=== PATIENT | female | born 1975 | race Two or more races ===

== ENCOUNTER 2020-04-03 10:39 | Outpatient (REF) | payer BC, SELFPAY ==
[2020-04-03 11:36] LABS: MANUAL DIFF FLAG NO
[2020-04-03 11:42] LABS: Basophils Absolute Auto 0.1 X10*3/uL (0.0-0.2); Basophils Percent Auto 0.7 % (0-2); Eosinophils Absolute Auto 0.1 X10*3/uL (0.0-0.4); Eosinophils Percent Auto 1.5 % (0-4); Imm Gran Abs Auto 0.01 X10*3/uL (0.00-0.03); Imm Gran Pct Auto 0.1 % (0.0-0.4); Lymphocytes Absolute Auto 2.5 X10*3/uL (1.2-4.9); Lymphocytes Percent Auto 37.1 % (20-40); Mean Corpuscular HGB Conc 33.3 g/dl (31.0-35.0); Mean Corpuscular Hemoglobin 30.2 pg (27.0-33.0); Mean Corpuscular Volume 90.7 fL (80-98); Mean Platelet Volume 10.3 fL (9.4-12.3); Monocytes Absolute Auto 0.4 X10*3/uL (0.1-1.2); Monocytes Percent Auto 6.5 % (2-11); Neutrophils Absolute Auto 3.7 X10*3/uL (2.0-8.3); Neutrophils Percent Auto 54.1 % (45-73); Platelet Count 359 X10*3/uL (160-400); Red Cell Distribution Width 13.1 % (11.0-16.0); White Blood Count 6.8 X10*3/uL (4.8-10.8)
[2020-04-03 11:56] LABS: Alanine Aminotransferase 43 U/L (0-31); Albumin Level 4.4 g/dL (3.5-5.0); Alkaline Phosphatase 68 U/L (39-117); Anion Gap 15 (12-20); Aspartate Amino Transferase 43 U/L (5-31); Bilirubin Total 0.5 mg/dL (0.0-1.0); Blood Urea Nitrogen 11 mg/dL (9-16); Calcium 9.4 mg/dL (8.4-10.2); Carbon Dioxide 27 mmol/L (22-29); Chloride 103 mmol/L (96-108); Cholesterol 249 mg/dL; Estimated Glomerular Filt Rate > 60; Glucose Fasting 89 mg/dL (60-99); HDL Cholesterol 57 mg/dL; LDL Cholesterol Calculated 150 mg/dl; Potassium 4.9 mmol/l (3.3-5.1); Sodium 140 mmol/L (135-145); Total Protein 7.2 g/dL (6.5-8.0); Triglycerides 213 mg/dL
[2020-04-03 12:44] LABS: Folate 12.1 ng/mL (> or = 4.0); Vitamin B12 365 pg/mL (200-900)
[2020-04-07 11:51] LABS: Vitamin D 25-OH, D2 <4 ng/mL; Vitamin D 25-OH, D3 26 ng/mL; Vitamin D 25-OH, Total 26 ng/mL (30-100)
== END 2020-04-03 10:40 | disposition home or self-care (01) ==
LOC: HO.LAB 10:39
PROVIDERS: PCP Internal Medicine; Visit Provider Internal Medicine
DX: E66.9 Obesity, unspecified (principal); R42 Dizziness and giddiness; E55.9 Vitamin D deficiency, unspecified
CPT/HCPCS: 36415; 80053; 80061; 82306; 82607; 82746; 85025

== ENCOUNTER 2020-06-27 11:43 | Outpatient (REF) | payer BC, SELFPAY | END 2020-06-27 11:44 | disposition home or self-care (01) | LOC: HO.LAB 11:43 | PROVIDERS: Visit Provider Internal Medicine | DX: Z20.822 Contact with and (suspected) exposure to COVID-19 (principal) | CPT/HCPCS: 36415; C9803; U0003 ==

== ENCOUNTER 2021-05-12 10:24 | Emergency (ER) | payer BC, SELFPAY ==
--- NOTE | ~2021-05-12 | XR_ITS ---
EXAMINATION: XR KNEE, LEFT CLINICAL INFORMATION: Pain and swelling left knee. COMPARISON: None TECHNIQUE: Four views of the left knee. FINDINGS: There is a moderate suprapatellar effusion. Hoffa's fat pad appears normal. There is no bony abnormality. No visible fracture or dislocation or destructive process. No erosive change or chondrocalcinosis. No periostitis. XR/XR knee LT 4V IMPRESSION: Moderate suprapatellar effusion. No fracture, destructive process, or joint narrowing.
[2021-05-12 10:58] VITALS: BP 121/88; PULSE 100; RESP 16; TEMP 36.6; O2SAT 99; BMI 34.9
--- NOTE | 2021-05-12 11:53 | ED_ITS ---
HPI - Extremity Problem General Chief complaint: Extremity Problem Stated complaint: lt knee pain Time Seen by Provider: 05/12/21 11:44 Source: patient Mode of arrival: ambulatory Limitations: no limitations History of Present Illness HPI Narrative: 46-year-old female who has a past medical history of fibromyalgia, obesity, migraine headaches, and hyperlipidemia who is currently on a pain contract prescribed 5 mg of oxycodone presenting to the ED with complaints of atraumatic left knee pain/swelling over the past 5 days worse today. Reports that the pain is radiating proximal into her left hip. Denies any fevers, chills, dizziness, headaches, neck pain/stiffness, back pain, chest pain or shortness of breath, dyspnea on exertion, orthopnea, palpitations, lower extremity edema or calf tenderness, recent falls or trauma, recent travel, recent immobilization, history of DVT or PE, recent travel, history gout, recent illness, history of PVD, history of hypercoagulation disorder or recent surgery or procedure any other symptoms complaints or concerns at this time. MD Complaint: extremity pain and extremity swelling Onset (ago): day(s) (5) Pain Consistency: constant Location: left and knee Quality: aching Radiation: proximal Relieving factors: nothing Exacerbating factors: range of motion, weight bearing, walking and palpation Associated symptoms: denies other symptoms Context: other (History of fibromyalgia) Related Data Home Medications Medication Instructions Recorded Confirmed duloxetine 30 mg capsule,delayed mg PO DAILY 03/27/20 04/07/21 release fentanyl 25 mcg/hr transdermal patch TRANSDERMAL 03/27/20 04/07/21 patch oxycodone-acetaminophen 5 mg-325 1 tab PO QID PRN 03/27/20 04/07/21 mg tablet pregabalin 150 mg capsule mg PO 03/27/20 04/07/21 ropinirole 0.5 mg tablet 0.5 mg PO BEDTIME 03/27/20 04/07/21 amitriptyline 10 mg tablet 20 mg PO DAILY tab 04/07/21 04/07/21 clonazepam 1 mg tablet 1 mg PO BID PRN 04/07/21 04/07/21 topiramate 50 mg tablet 50 mg PO DAILY tab 04/07/21 04/07/21 Previous Rx's Medication Instructions Recorded cholecalciferol (vitamin D3) 25 25 mcg PO DAILY #90 tab 07/05/20 mcg (1,000 unit) tablet (Vitamin D3) cajniqobnv-wxsfdhoovzzhl-rkvzqkbi 1 cap PO Q8H PRN 30 Days #90 cap 11/03/20 50 mg-300 mg-40 mg capsule acetaminophen 500 mg capsule 1,000 mg PO QID PRN #14 cap 05/12/21 ibuprofen 800 mg tablet 800 mg PO Q8H PRN #14 tab 05/12/21 prednisone 20 mg tablet 40 mg PO DAILY 5 Days #10 tab 05/12/21 Allergies Allergy/AdvReac Type Severity Reaction Status Date / Time apple [Apple] Allergy Severe ANGIOEDEMA Verified 04/07/21 14:19 nut - unspecified [nut] Allergy Severe SWELLING Verified 04/07/21 14:19 pollen extracts [POLLEN] Allergy Intermediate ITCHY Verified 04/07/21 14:19 EYES, SNEEZING sertraline Allergy Intermediate anxiety Verified 04/07/21 14:19 suvorexant [Belsomra] Allergy Intermediate hallucinati Verified 04/07/21 14:19 ons Review of Systems Review of Systems: Constitutional : No Weight loss, No Fever, No Chills, No Night Sweats, No Fatigue, No Malaise ENT/Mouth : No Hearing loss, No Ear Pain, No Nasal Congestion, No Sinus Pain, No Hoarseness, No sore throat, No Rhinorrhea, No Swallowing Difficulty Eyes: No Eye Pain, No Swelling, No Redness, No Foreign Body, No Discharge, No Vision Changes Cardiovascular : No Chest Pain, No SOB, No Dyspnea on Exertion, No Orthopnea, No Edema, No Palpitations Respiratory : No Cough, No Sputum, No Wheezing, No Smoke Exposure, No Dyspnea Gastrointestinal : No Nausea, No Vomiting, No Diarrhea, No Constipation, No abdominal Pain, No Hematochezia, No Melena Genitourinary : no irregular bleeding, No Dysuria, No Urinary Frequency, No Hematuria, No Urinary Incontinence, No Urgency, No Flank Pain, No Urinary Flow Changes, No Hesitancy Musculoskeletal : + joint pain/swelling, No Myalgias Skin : No Skin Lesions, No rash Neuro : No Weakness, No Numbness, No Paresthesias, No Loss of Consciousness, No Dizziness, No Headache Psych : No Anxiety/Panic, No Depression, No SI/HI/AH/VH, No Social Issues, Heme/Lymph: No Bruising, No Bleeding,No Lymphadenopathy Endocrine : No Polyuria, No Polydipsia, No Temperature Intolerance Yes all other systems are reviewed and are negative [facility] Past Medical History Attestation statement: The following information was validated with the patient. Medical History Bilateral sacroiliitis Dizziness Fibromyalgia Hypovitaminosis D Migraines Mixed hyperlipidemia Obesity Palpitations Tachycardia Transaminitis Surgical History History of cholecystectomy History of deviated nasal septum History of hysterectomy History of removal of ovarian cyst History of tonsillectomy History of tubal ligation Family History Family History Father Anxiety Depression Mother Breast cancer Maternal Grandmother Myocardial infarction Maternal Aunt Breast cancer Family/Other FH: mental illness Social History Social History Housing: House Alcohol intake: never Patient Tobacco Use Status: Former Tobacco user Tobacco use type: Cigarette Second Hand Smoke Exposure: Yes Advance Directives: No Advance Directives Information Provided: No service: No Current occupational status: employed 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 Blood pressure normal. Heart rate normal. Respiration rate normal. Temperature normal. Oxygen saturation normal. Appearance: Alert. Oriented X3. No acute distress. Head: Normal external exam. Normocephalic. Atraumatic. Eyes: PERRLA. EOMI. Conjunctiva and sclera normal. Eyelids normal. ENT: Pharynx normal. Uvula midline. Moist mucous membranes. Neck: Normal inspection. Neck supple. FROM. No adenopathy. No meningeal signs. No neck mass noted. CVS: Normal heart rate and rhythm. Heart sound normal. Pulses normal throughout. No murmurs/rales/gallops. Respiratory: No respiratory distress. Painless inspiration. Back: Full range of motion noted. No rashes/lesion/induration/fluctuance or signs of infection noted. Skin: Skin warm and dry. Normal skin color. Normal skin turgor. No jenna hes/lesions/lacerations noted. Extremities: Patient with left knee pain at the suprapatellar/medial aspect with mild soft tissue swelling no induration/fluctuance or signs of infection or surrounding erythema noted. No obvious ligamentous or tendon injury noted. Patient has full range of motion of the left knee/ankle and hip joint. Patient has a normal steady gait. Otherwise all other Extremities exhibit normal range of motion and nontender. No lower extremity edema is noted. Neuro: Oriented X 3. No motor deficit. No sensory deficit. Reflexes normal. Normal steady gait. No focal neuro deficits noted. Vascular: + radial pulses/+ 2 distal pedal pulses/+2 dorsalis pedis b/l. Normal cap refill. No cyanosis noted to upper extremity nails and lower extremity toes nails. Course Course Course Narrative: 46-year-old female who has a past medical history of fibromyalgia, obesity, migraine headaches, and hyperlipidemia who is currently on a pain contract prescribed 5 mg of oxycodone presenting to the ED with complaints of atraumatic left knee pain/swelling over the past 5 days worse today. Reports that the pain is radiating proximal into her left hip. Denies any fevers, chills, dizziness, headaches, neck pain/stiffness, back pain, chest pain or shortness of breath, dyspnea on exertion, orthopnea, palpitations, lower extremity edema or calf tenderness, recent falls or trauma, recent travel, recent immobilization, history of DVT or PE, recent travel, history gout, recent illness, history of PVD, history of hypercoagulation disorder or recent surgery or procedure any other symptoms complaints or concerns at this time. X-ray reported moderate suprapatellar effusion otherwise no other acute processes. Will instruct patient to elevate/ice and will provide Motrin and steroids and instructions to continue taking her 5 mg oxycodone as previously prescribed. And to follow-up with orthopedic and to return if any new or worsening symptoms to follow up with primary care provider. Patient understands agrees with this plan. MDM - Extremity (Nontraumatic) Medical Records Attestation: I reviewed the patient's medical records. Imaging Data Left knee x-ray: Attestation: I personally reviewed and interpreted this imaging study as follows: Radiologist's impression: FINDINGS: There is a moderate suprapatellar effusion. Hoffa's fat pad appears normal. There is no bony abnormality. No visible fracture or dislocation or destructive process. No erosive change or chondrocalcinosis. No periostitis.? XR/XR knee LT 4V IMPRESSION: Moderate suprapatellar effusion. No fracture, destructive process, or joint narrowing. Discharge Plan Discharge Clinical Impression: Suprapatellar effusion of knee Patient Disposition: Home, Self-Care Instructions: Swollen Knee Joint (ED) Prescriptions: New ibuprofen 800 mg tablet 800 mg PO Q8H PRN (Reason: pain) Qty: 14 RF: 0 prednisone 20 mg tablet 40 mg PO DAILY 5 Days Qty: 10 RF: 0 acetaminophen 500 mg capsule 1,000 mg PO QID PRN (Reason: fever or pain) Qty: 14 RF: 0 No Action cholecalciferol (vitamin D3) [Vitamin D3] 25 mcg (1,000 unit) tablet 25 mcg PO DAILY Qty: 90 RF: 6 eylrblyhzr-cuuvojgfdnyfz-dyzv 50-300-40 mg capsule 1 cap PO Q8H PRN (Reason: pain) 30 Days Qty: 90 RF: 0 pregabalin 150 mg capsule PO RF: 0 fentanyl 25 mcg/hr patch 72 hour transdermal RF: 0 oxycodone-acetaminophen 5-325 mg tablet 1 tab PO QID PRN (Reason: pain) RF: 0 ropinirole 0.5 mg tablet 0.5 mg PO BEDTIME RF: 0 duloxetine 30 mg capsule,delayed release(DR/EC) PO DAILY RF: 0 clonazepam 1 mg tablet 1 mg PO BID PRNRF: 0 topiramate 50 mg tablet 50 mg PO DAILY RF: 0 amitriptyline 10 mg tablet 20 mg PO DAILY RF: 0 Referrals: Miguel Angel Haddad MD [Physician] - 2 days (Call to make a follow-up appointment within the next 2 weeks) Rocio Alvarado MD [Primary Care Provider] - 2 days Print Language: Ivorian
[2021-05-12] MEDS: predniSONE 20 MG TABLET 40 MG PO (12:05)
[2021-05-12] MEDS: Ibuprofen 800 MG TABLET PO (12:05)
== END 2021-05-12 12:41 | disposition home or self-care (01) ==
PROVIDERS: Emergency Provider Emergency Medicine; PCP Internal Medicine
DX: M25.462 Effusion, left knee (principal); M25.562 Pain in left knee; M79.7 Fibromyalgia
CPT/HCPCS: 73564; 99283

== ENCOUNTER 2021-06-13 08:00 | Emergency (ER) | payer BC, SELFPAY ==
--- NOTE | ~2021-06-13 | XR_ITS ---
EXAMINATION: XR CHEST CLINICAL INFORMATION: Cough, COVID positive. COMPARISON: 10/10/2017 chest radiographs. TECHNIQUE: Frontal view of the chest was obtained. FINDINGS: Low lung volumes and evaluation. The lungs are clear. The heart and mediastinal structures are unremarkable. Moderate thoracolumbar sigmoid scoliosis and multilevel degenerative changes are again noted. XR/XR chest 1V IMPRESSION: No acute cardiopulmonary process.
[2021-06-13 08:41] VITALS: BP 140/67; PULSE 120; RESP 18; TEMP 36.8; O2SAT 98; BMI 33.3
[2021-06-13 09:10] LABS: COVID-19 Test Positive (Negative); IDNOW Serial# 9DD0AD1C
--- NOTE | 2021-06-13 10:40 | ECG_ITS ---
Test Reason : cp Blood Pressure : / mmHG Vent. Rate : 117 BPM Atrial Rate : 117 BPM P-R Int : 136 ms QRS Dur : 092 ms QT Int : 334 ms P-R-T Axes : 012 -11 013 degrees QTc Int : 465 ms Sinus tachycardia Minimal voltage criteria for LVH, may be normal variant ( R in aVL ) Borderline ECG When compared with ECG of 10-OCT-2017 10:37, No significant change was found Referred By: Mega Mcwilliams Electronically Signed By:Lio Horton
[2021-06-13 11:56] VITALS: PULSE 110; RESP 16; O2SAT 100
[2021-06-13 11:57] LABS: MANUAL DIFF FLAG NO
[2021-06-13 11:59] LABS: Basophils Percent Auto 0.4 % (0-2); Eosinophils Absolute Auto 0.1 X10*3/uL (0.0-0.4); Eosinophils Percent Auto 1.4 % (0-4); Hematocrit 42.1 % (37.0-47.0); Imm Gran Abs Auto 0.03 X10*3/uL (0.00-0.03); Imm Gran Pct Auto 0.3 % (0.0-0.4); Lymphocytes Absolute Auto 2.1 X10*3/uL (1.2-4.9); Lymphocytes Percent Auto 20.8 % (20-40); Mean Corpuscular HGB Conc 33.3 g/dl (31.0-35.0); Mean Corpuscular Hemoglobin 30.8 pg (27.0-33.0); Mean Corpuscular Volume 92.5 fL (80.0-98.0); Mean Platelet Volume 9.4 fL (9.4-12.3); Monocytes Percent Auto 10.2 % (2-11); Neutrophils Absolute Auto 6.6 x10*3/uL (2.0-8.3); Neutrophils Percent Auto 66.9 % (45-73); Platelet Count 333 X10*3/uL (160-400); Red Blood Count 4.55 X10*6/uL (4.20-5.50); Red Cell Distribution Width 13.2 % (11.0-16.0); White Blood Count 9.9 X10*3/uL (4.8-10.8)
[2021-06-13 12:00] VITALS: O2SAT 100
[2021-06-13 12:06] LABS: Prothrombin Time 11.5 SEC (9.9-13.0)
[2021-06-13 12:08] LABS: D Dimer High Sensitivity 230 NG/ML; Partial Thromboplastin Time 37.5 SEC (24.1-38.0)
[2021-06-13 12:10] LABS: Anion Gap 13 (12-20); Blood Urea Nitrogen 10 mg/dL (9-16); Calcium 9.5 mg/dL (8.4-10.2); Carbon Dioxide 23 mmol/L (22-29); Chloride 107 mmol/L (96-108); Creatinine Clr Calc Pharmacy 98.9; Estimated Glomerular Filt Rate > 60; Glucose Random 95 mg/dL (60-115); Potassium 3.9 mmol/L (3.3-5.1); Sodium 139 mmol/L (135-145)
--- NOTE | 2021-06-13 13:02 | ED_ITS ---
HPI - URI/Sore Throat General Chief Complaint: Upper Respiratory Symptoms Stated Complaint: CHEST THIGHTNESS COVID EXPOSURE Time Seen by Provider: 06/13/21 10:30 History of Present Illness HPI Narrative: Patient complains of mild cough runny nose mild headache and some chest tightness last night but no chest tightness or shortness of breath now She has been vaccinated for COVID and has had very close family exposure to COVID, no recent travel no underlying medical condition no injuries to her leg no pain in her legs or swelling Related Data Home Medications Medication Instructions Recorded Confirmed duloxetine 30 mg capsule,delayed mg PO DAILY 03/27/20 04/07/21 release fentanyl 25 mcg/hr transdermal patch TRANSDERMAL 03/27/20 04/07/21 patch oxycodone-acetaminophen 5 mg-325 1 tab PO QID PRN 03/27/20 04/07/21 mg tablet pregabalin 150 mg capsule mg PO 03/27/20 04/07/21 ropinirole 0.5 mg tablet 0.5 mg PO BEDTIME 03/27/20 04/07/21 amitriptyline 10 mg tablet 20 mg PO DAILY tab 04/07/21 04/07/21 clonazepam 1 mg tablet 1 mg PO BID PRN 04/07/21 04/07/21 topiramate 50 mg tablet 50 mg PO DAILY tab 04/07/21 04/07/21 Previous Rx's Medication Instructions Recorded cholecalciferol (vitamin D3) 25 25 mcg PO DAILY #90 tab 07/05/20 mcg (1,000 unit) tablet (Vitamin D3) yzggnsptyv-mpbezueshuuxz-hzpwqlke 1 cap PO Q8H PRN 30 Days #90 cap 11/03/20 50 mg-300 mg-40 mg capsule acetaminophen 500 mg capsule 1,000 mg PO QID PRN #14 cap 05/12/21 ibuprofen 800 mg tablet 800 mg PO Q8H PRN #14 tab 05/12/21 prednisone 20 mg tablet 40 mg PO DAILY 5 Days #10 tab 05/12/21 Allergies Allergy/AdvReac Type Severity Reaction Status Date / Time apple [Apple] Allergy Severe ANGIOEDEMA Verified 06/13/21 08:41 nut - unspecified [nut] Allergy Severe SWELLING Verified 06/13/21 08:41 pollen extracts [POLLEN] Allergy Intermediate ITCHY Verified 06/13/21 08:41 EYES, SNEEZING sertraline Allergy Intermediate anxiety Verified 06/13/21 08:41 suvorexant [Belsomra] Allergy Intermediate hallucinati Verified 06/13/21 08:41 ons Review of Systems Review of Systems: Positive for cough body aches runny nose and chest t ightness Negatives are no fever no chills no dizziness no weakness no fainting no feeling faint no headache no neck pain no stiff neck no sore throat no chest pain no abdominal pain no nausea vomiting or diarrhea no calf pain no leg swelling Yes all other systems are reviewed and are negative [facility] Past Medical History Source: nursing notes reviewed Medical History Bilateral sacroiliitis Dizziness Fibromyalgia Hypovitaminosis D Migraines Mixed hyperlipidemia Obesity Palpitations Tachycardia Transaminitis Surgical History History of cholecystectomy History of deviated nasal septum History of hysterectomy History of removal of ovarian cyst History of tonsillectomy History of tubal ligation Family History Family History Father Anxiety Depression Mother Breast cancer Maternal Grandmother Myocardial infarction Maternal Aunt Breast cancer Family/Other FH: mental illness Social History Social History Housing: House Alcohol intake: never Patient Tobacco Use Status: Former Tobacco user Tobacco use type: Cigarette Smoked in Last 30 Days: No Second Hand Smoke Exposure: Yes Use of substances other than those prescribed or required for medical reasons: No Advance Directives: No Advance Directives Information Provided: No service: No Current occupational status: employed 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 Physical Exam Vital Signs: Vital Signs: Last Vital Signs Temp 98.2 F 06/13/21 08:41 Pulse 110 H 06/13/21 11:56 Resp 16 06/13/21 11:56 BP 140/67 H 06/13/21 08:41 Pulse Ox 100 06/13/21 12:00 BMI result Body Mass Index 33.3 General appearance is no acute distress comfortable breathing easily speaking full sentences The eyes no redness or swelling The pharynx is clear with no redness swelling or exudate mucous membranes moist Neck is supple Chest clear to auscultation bilateral Heart no murmurs There is no pain with deep breath The abdomen is soft nontender Extremities no calf tenderness or swelling no edema Course Course Course Narrative: Labs were checked with no acute abnormality D-dimer was checked because she was initially tachycardic at 01:20 I recheck that it was 120 and so we checked a D-dimer to rule out pulmonary embolus, the D-dimer came back to 30 which is the upper limit of normal, patient had no other risk factors for blood clot and now was read as a negative Patient had no shortness of breath during her stay in the ER and her pulse went down to 107 with no treatment Chest x-ray was normal EKG showed sinus tachycardia at 01:17, no acute ischemic changes no acute ST changes, QT was normal, intervals were normal Well-appearing patient positive for COVID was discharged with warnings to quarantine and return if worse MDM - URI/Sore Throat Lab Data Result diagrams: 06/13/21 11:53 06/13/21 11:53 Labs: Lab Results 06/13/21 06/13/21 06/13/21 Range/Units 08:45 11:53 11:53 WBC 9.9 (4.8-10.8) X10*3/uL RBC 4.55 (4.20-5.50) X10*6/uL Hgb 14.0 (12.0-16.0) g/dl Hct 42.1 (37.0-47.0) % MCV 92.5 (80.0-98.0) fL MCH 30.8 (27.0-33.0) pg MCHC 33.3 (31.0-35.0) g/dl RDW 13.2 (11.0-16.0) % Plt Count 333 (160-400) X10*3/uL MPV 9.4 (9.4-12.3) fL Immature Gran % (Auto) 0.3 (0.0-0.4) % Neut % (Auto) 66.9 (45-73) % Lymph % (Auto) 20.8 (20-40) % [place] % (Auto) 10.2 (2-11) % Eos % (Auto) 1.4 (0-4) % Baso % (Auto) 0.4 (0-2) % Lymph # (Auto) 2.1 (1.2-4.9) X10*3/uL [place] # (Auto) 1.0 (0.1-1.2) X10*3/uL Eos # (Auto) 0.1 (0.0-0.4) X10*3/uL Baso # (Auto) 0.0 (0.0-0.2) X10*3/uL Abs Immat Gran (auto) 0.03 (0.00-0.03) X10*3/uL Absolute Neuts (auto) 6.6 (2.0-8.3) x10*3/uL Absolute Nucleated RBC 0.000 (0.0-0.012) X10*3/uL Nucleated RBC % (auto) 0.0 (0.0-0.2) /100WBC PT (9.9-13.0) SEC INR (0.9-1.1) APTT (24.1-38.0) SEC D-Dimer High Sensitivty NG/ML Sodium 139 (135-145) mmol/L Potassium 3.9 (3.3-5.1) mmol/L Chloride 107 (96-108) mmol/L Carbon Dioxide 23 (22-29) mmol/L Anion Gap 13 (12-20) BUN 10 (9-16) mg/dL Creatinine 0.70 (0.5-1.4) mg/dL Estim Creat Clear Calc 98.9 Estimated GFR > 60 Random Glucose 95 (60-115) mg/dL Calcium 9.5 (8.4-10.2) mg/dL COVID-19 ([facility]) Positive A (Negative) COVID-19 Clin Com See Note 06/13/21 Range/Units 11:53 WBC (4.8-10.8) X10*3/uL RBC (4.20-5.50) X10*6/uL Hgb (12.0-16.0) g/dl Hct (37.0-47.0) % MCV (80.0-98.0) fL MCH (27.0-33.0) pg MCHC (31.0-35.0) g/dl RDW (11.0-16.0) % Plt Count (160-400) X10*3/uL MPV (9.4-12.3) fL Immature Gran % (Auto) (0.0-0.4) % Neut % (Auto) (45-73) % Lymph % (Auto) (20-40) % [place] % (Auto) (2-11) % Eos % (Auto) (0-4) % Baso % (Auto) (0-2) % Lymph # (Auto) (1.2-4.9) X10*3/uL [place] # (Auto) (0.1-1.2) X10*3/uL Eos # (Auto) (0.0-0.4) X10*3/uL Baso # (Auto) (0.0-0.2) X10*3/uL Abs Immat Gran (auto) (0.00-0.03) X10*3/uL Absolute Neuts (auto) (2.0-8.3) x10*3/uL Absolute Nucleated RBC (0.0-0.012) X10*3/uL Nucleated RBC % (auto) (0.0-0.2) /100WBC PT 11.5 (9.9-13.0) SEC INR 1.0 (0.9-1.1) APTT 37.5 (24.1-38.0) SEC D-Dimer High Sensitivty 230 NG/ML Sodium (135-145) mmol/L Potassium (3.3-5.1) mmol/L Chloride (96-108) mmol/L Carbon Dioxide (22-29) mmol/L Anion Gap (12-20) BUN (9-16) mg/dL Creatinine (0.5-1.4) mg/dL Estim Creat Clear Calc Estimated GFR Random Glucose (60-115) mg/dL Calcium (8.4-10.2) mg/dL COVID-19 ([facility]) (Negative) COVID-19 Clin Com Discharge Plan Discharge Clinical Impression: COVID-19 Patient Disposition: Home, Self-Care Additional Instructions: You tested positive for COVID Our workup today did not show evidence of blood clot or heart problem or any dangerous or serious condition COVID is very contagious so quarantine for 10 days Return to ER any time any worse condition or any concerns Prescriptions: No Action cholecalciferol (vitamin D3) [Vitamin D3] 25 mcg (1,000 unit) tablet 25 mcg PO DAILY Qty: 90 RF: 6 cnqyberlzv-scgiwniqytqcq-bneb 50-300-40 mg capsule 1 cap PO Q8H PRN (Reason: pain) 30 Days Qty: 90 RF: 0 ibuprofen 800 mg tablet 800 mg PO Q8H PRN (Reason: pain) Qty: 14 RF: 0 prednisone 20 mg tablet 40 mg PO DAILY 5 Days Qty: 10 RF: 0 acetaminophen 500 mg capsule 1,000 mg PO QID PRN (Reason: fever or pain) Qty: 14 RF: 0 pregabalin 150 mg capsule PO RF: 0 fentanyl 25 mcg/hr patch 72 hour transdermal RF: 0 oxycodone-acetaminophen 5-325 mg tablet 1 tab PO QID PRN (Reason: pain) RF: 0 ropinirole 0.5 mg tablet 0.5 mg PO BEDTIME RF: 0 duloxetine 30 mg capsule,delayed release(DR/EC) PO DAILY RF: 0 clonazepam 1 mg tablet 1 mg PO BID PRNRF: 0 topiramate 50 mg tablet 50 mg PO DAILY RF: 0 amitriptyline 10 mg tablet 20 mg PO DAILY RF: 0 Stand Alone Forms: Work/School Release Interventions: ED Discharge Assessment Last Done: 06/13/21 13:40 Discharge Date/Time: 06/13/21 13:40
== END 2021-06-13 13:40 | disposition home or self-care (01) ==
PROVIDERS: Physician Assistant Medical; Emergency Provider Emergency Medicine; PCP Internal Medicine
DX: U07.1 COVID-19 (principal); R07.9 Chest pain, unspecified; Z87.891 Personal history of nicotine dependence; Z79.899 Other long term (current) drug therapy
CPT/HCPCS: 36415; 71045; 80048; 85025; 85379; 85610; 85730; 87635; 93005; 99283; 99285

== ENCOUNTER 2021-07-01 13:13 | Outpatient (REF) | payer BC, SELFPAY ==
[2021-07-01 13:38] LABS: COVID-19 Test Negative (Negative)
== END 2021-07-01 13:14 | disposition home or self-care (01) ==
LOC: HO.LAB 13:13
PROVIDERS: Visit Provider Internal Medicine
DX: Z20.822 Contact with and (suspected) exposure to COVID-19 (principal)
CPT/HCPCS: 87635; C9803

== ENCOUNTER → 2021-07-06 13:30 | Outpatient (BNVA) | payer BC, SELFPAY | PROVIDERS: PCP Internal Medicine; Visit Provider Internal Medicine ==

== ENCOUNTER → 2021-07-27 16:00 | Outpatient (BNVA) | payer BC, SELFPAY | PROVIDERS: PCP Internal Medicine; Visit Provider Internal Medicine ==

== ENCOUNTER 2021-08-06 17:56 | Outpatient (REF) | payer BC, SELFPAY ==
--- NOTE | ~2021-08-06 | MR_ITS ---
EXAMINATION: MR LUMBAR SPINE WITHOUT CONTRAST CLINICAL INFORMATION: 46-year-old with complaints of low back pain radiating to both legs. Scoliosis, unspecified. COMPARISON: 12/17/2014 MRI. TECHNIQUE: MRI of the lumbar spine was obtained using routine sequences without contrast. Sagittal T1-weighted images are severely degraded by motion artifact. FINDINGS: Coronal Alignment: There is marked upper lumbar levoscoliosis stable from previous exam. Sagittal Alignment: Prominent lumbar lordotic curvature in the sagittal plane stable in appearance. No spondylolisthesis or retrolisthesis. Lumbosacral Junction: Transitional anatomy with lowest lumbar-like segment labeled as S1, which is partially lumbarized, with a rudimentary S1-S2 intervertebral disc space unchanged in appearance. Vertebral Bodies: Normal height. Disc Spaces and Endplates: [id number] disc space height loss at L5-S1 asymmetric to the left, similar to the previous study with disc desiccation. There is disc desiccation at L4-L5 with slight disc space height loss, progressed from previous exam. Disc desiccation at L3-L4 has progressed without significant disc space height loss since previous study. Ksal-rd-[id number] disc space height loss and disc desiccation at L2-L3 asymmetric to the right, largely unchanged with mild spondylosis. Fyolnppj-ul-zfrzsa disc space height loss asymmetric to the right at L1-L2 with disc desiccation and Schmorl's nodes progressed from previous exam. Progression of discogenic degenerative changes also noted at T12-L1 with disc space height loss and disc desiccation and Schmorl's node formation with mild spondylosis. Spinal Canal: No abnormal developmental findings. Bone Marrow: Type II degenerative marrow signal changes along the endplates at L5-S1 asymmetric to the left have evolved from type I signal changes on the previous exam. There are type II degenerative marrow signal changes along the endplates at L2-L3 minimally progressed. Otherwise, bone marrow signal intensity is within normal limits. Conus Medullaris: Terminates at T12-L1. Morphology and signal is normal. Intradural Nerve Roots: Within normal limits. L5-S1: Broad-based disc bulging asymmetric to the left with left posterolateral disc osteophyte complex, similar to the previous study, with no significant thecal sac compromise. [id number] facet arthropathy is noted without significant canal stenosis. There is mild left-sided neural foraminal stenosis, stable in appearance with disc osteophyte complex contacting the exiting left L5 nerve root, unchanged. L4-L5: Minimal posterolateral disc osteophyte complex asymmetric to the left, slightly more prominent on current study with a small right subarticular disc protrusion stable in appearance without neural impingement. Mild facet arthropathy noted with mild left-sided foraminal narrowing without neural impingement. No canal stenosis. L3-L4: Small left subarticular disc protrusion noted on current study at this level. No significant disc bulging. Mild right-sided facet arthropathy stable in appearance. No canal or neural foraminal stenosis. L2-L3: Tiny right paramedian disc protrusion stable in appearance. Mild facet arthrosis stable in appearance. No canal or neural foraminal stenosis. L1-L2: No significant disc bulge or herniation. Mild facet arthrosis on the right stable in appearance with mild right-sided foraminal narrowing without neural impingement unchanged. No canal stenosis. Paraspinal/Retroperitoneal: The paravertebral soft tissues appear unremarkable. MR/MR lumbar spine wo con IMPRESSION: 1. Marked upper lumbar levoscoliosis, stable in appearance. 2. Multilevel progression of discogenic degenerative changes, as described above without significant spinal canal stenosis. Stable multilevel bilateral facet arthropathy. 3. Posterolateral disc osteophyte complex asymmetric to the left at L5-S1, stable in appearance with mild left-sided neural foraminal stenosis, unchanged. Left-sided disc osteophyte complex and right subarticular disc protrusion at L4-L5 as described above with mild facet arthropathy and mild left-sided neural foraminal narrowing without neural impingement. 4. Small left subarticular disc protrusion at L3-L4 and mild right-sided facet arthropathy, tiny right paramedian disc protrusion at L2-L3 and mild facet arthrosis on the right at L1-L2 with mild right-sided neural foraminal stenosis.
== END 2021-08-06 17:57 | disposition home or self-care (01) ==
LOC: HO.MRI 17:56
PROVIDERS: Visit Provider Internal Medicine
DX: M41.86 Other forms of scoliosis, lumbar region (principal); M47.816 Spondylosis without myelopathy or radiculopathy, lumbar region; M48.061 Spinal stenosis, lumbar region without neurogenic claudication
CPT/HCPCS: 72148

== ENCOUNTER 2021-08-08 10:14 | Outpatient (REF) | payer BC, SELFPAY ==
[2021-08-08 10:22] LABS: MANUAL DIFF FLAG NO
[2021-08-08 10:39] LABS: Basophils Percent Auto 0.6 % (0-2); Eosinophils Absolute Auto 0.1 X10*3/uL (0.0-0.4); Eosinophils Percent Auto 1.6 % (0-4); Hematocrit 39.3 % (37.0-47.0); Hemoglobin 12.9 g/dl (12.0-16.0); Imm Gran Abs Auto 0.01 X10*3/uL (0.00-0.03); Imm Gran Pct Auto 0.1 % (0.0-0.4); Lymphocytes Absolute Auto 2.3 X10*3/uL (1.2-4.9); Lymphocytes Percent Auto 33.9 % (20-40); Mean Corpuscular HGB Conc 32.8 g/dl (31.0-35.0); Mean Corpuscular Hemoglobin 30.4 pg (27.0-33.0); Mean Corpuscular Volume 92.7 fL (80.0-98.0); Mean Platelet Volume 9.6 fL (9.4-12.3); Monocytes Absolute Auto 0.4 X10*3/uL (0.1-1.2); Monocytes Percent Auto 5.9 % (2-11); Neutrophils Absolute Auto 3.9 x10*3/uL (2.0-8.3); Neutrophils Percent Auto 57.9 % (45-73); Platelet Count 322 X10*3/uL (160-400); Red Blood Count 4.24 X10*6/uL (4.20-5.50); Red Cell Distribution Width 13.2 % (11.0-16.0); White Blood Count 6.8 X10*3/uL (4.8-10.8)
[2021-08-08 11:56] LABS: Alanine Aminotransferase 27 U/L (0-31); Albumin Level 4.3 g/dL (3.5-5.0); Alkaline Phosphatase 70 U/L (39-117); Anion Gap 13 (12-20); Aspartate Amino Transferase 26 U/L (5-31); Bilirubin Total 0.6 mg/dL (0.0-1.0); Blood Urea Nitrogen 9 mg/dL (9-16); Calcium 9.7 mg/dL (8.4-10.2); Carbon Dioxide 25 mmol/L (22-29); Chloride 107 mmol/L (96-108); Cholesterol 270 mg/dL; Estimated Glomerular Filt Rate > 60; Glucose Fasting 93 mg/dL (60-99); HDL Cholesterol 56 mg/dL; LDL Cholesterol Calculated 174 mg/dl; Potassium 4.3 mmol/L (3.3-5.1); Sodium 141 mmol/L (135-145); Total Protein 7.1 g/dL (6.5-8.0); Triglycerides 203 mg/dL
[2021-08-12 12:06] LABS: Vitamin D 25-OH, D2 <4 ng/mL; Vitamin D 25-OH, D3 16 ng/mL; Vitamin D 25-OH, Total 16 ng/mL (30-100)
== END 2021-08-08 10:15 | disposition home or self-care (01) ==
LOC: HO.LAB 10:14
PROVIDERS: PCP Internal Medicine; Visit Provider Internal Medicine
DX: E78.5 Hyperlipidemia, unspecified (principal); E55.9 Vitamin D deficiency, unspecified; E78.2 Mixed hyperlipidemia; R53.83 Other fatigue
CPT/HCPCS: 36415; 80053; 80061; 82306; 85025

== ENCOUNTER → 2021-08-14 13:15 | Outpatient (REF) | payer BC, SELFPAY | LOC: HO.CARD 13:15 | PROVIDERS: Visit Provider Physician Assistant | DX: Z13.89 Encounter for screening for other disorder (principal) | CPT/HCPCS: 93226 ==

== ENCOUNTER → 2021-08-19 09:17 | Outpatient (REF) | payer BC, SELFPAY ==
--- NOTE | 2021-08-19 09:22 | ECG_ITS ---
Hook-up date: 2021-08-19 09:31:00 Duration: 47:59:00 Test Indications: palpitations Medications: [id number] QRS complexes 12 Ventricular ectopics which represent <1 % of total QRS comp. 30425 Supraventricular ectopics which represent 13 % of total QRS comp. * Paced QRS complexs which represent % of total QRS comp. VENTRICULAR ECTOPY 12 Isolated 0 Bigeminal Cycles 0 Couplets 0 Runs 0 Beats in Runs * Beats LONGEST at * BPM at :: -- * Beats FASTEST at * BPM at :: -- SUPRAVENTRICULAR ECTOPY 6 Isolated 7 Couplets 50 Runs 10746 Beats in Runs 9546 Beats LONGEST at 84 BPM at 23:53:15 2021-08-19 8 Beats FASTEST at 87 BPM at 07:54:18 2021-08-21 HEART RATES 62 MIN at 05:28:45 2021-08-20 97 AVG 169 MAX at 09:37:25 2021-08-20 LONGEST RR 1.1840 secs at 03:46:50 2021-08-21 S-T LEVELS Channel 1 - 128 mm at 09:31:00 2021-08-19 - 128 mm at 09:31:00 2021-08-19 Channel 2 - 128 mm at 09:31:00 2021-08-19 - 128 mm at 09:31:00 2021-08-19 Channel 3 - 128 mm at 02:85:01 -- - 128 mm at 02:85:01 Basic rhythm Normal sinus rhythm No long pause or profound bradycardia Frequent Sinus tachycardia , 46% of time HR > 100 bpm Frequent Unusual P axis, possible ectopic atrial rhythm Rare ectopics Patient did not report any symptoms in the diary Referred By: Guilherme Garcia Overread By: GREG VALENZUELA MD
== END ==
LOC: HO.CARD 09:17
PROVIDERS: PCP Physician Assistant; Visit Provider Physician Assistant
DX: R00.0 Tachycardia, unspecified (principal); R00.2 Palpitations
CPT/HCPCS: 93225; 93226

== ENCOUNTER 2021-09-21 15:41 | Outpatient (REF) | payer BC, SELFPAY ==
--- NOTE | ~2021-09-21 | MR_ITS ---
MR THORACIC SPINE WITHOUT CONTRAST CLINICAL INFORMATION: Scoliosis. COMPARISON: Chest radiographs 06/13/2021. TECHNIQUE: MRI of the thoracic spine was obtained using routine sequences without contrast. FINDINGS: Significant rightward convex scoliotic curvature of the thoracic spine. 12 rib-bearing thoracic type vertebral bodies. No segmentation anomalies are appreciated. Vertebral body heights are maintained. There is no significant bone marrow edema. No acute fractures. Vertebral body heights overall maintained. Moderate disc volume loss at the mid thoracic levels. No thoracic cord compression. No thoracic cord signal changes accounting for artifact. No significant thoracic disc herniations. No significant central canal stenosis within the thoracic spine. Disc osteophyte and facet arthropathy result in moderate left-sided foraminal stenosis at T7-T8, T8-T9, and T10-T11. There is a hiatal hernia. MR/MR thoracic spine wo con IMPRESSION: - Severe rightward convex scoliotic curvature of the thoracic spine. No segmentation anomalies. Disc osteophyte and facet arthropathy result in moderate left-sided foraminal stenosis at T7-T8, T8-T9, and T10-T11. No significant central canal stenosis within the thoracic spine. - There is a hiatal hernia.
--- NOTE | ~2021-09-21 | XR_ITS ---
EXAMINATION: XR SACROILIAC JOINTS CLINICAL INFORMATION: Lower back pain. COMPARISON: Right hip radiograph dated 02/02/2019. TECHNIQUE: 3 views of the sacroiliac joints FINDINGS: No acute fracture or dislocation. Mild left sacroiliac joint space narrowing with tiny inferior marginal osteophytes. No significant subchondral sclerosis or subchondral erosion. No lytic or blastic osseous lesion. No abnormal soft tissue calcification. XR/XR sacroiliac joint 1-2V IMPRESSION: Mild left sacroiliac osteoarthritis.
[2021-09-21 17:19] LABS: C Reactive Protein 0.47 mg/dL (< or = 0.50)
[2021-09-21 17:23] LABS: Erythrocyte Sedimentation Rate 16 MM/HR (0-20)
== END 2021-09-21 15:42 | disposition home or self-care (01) ==
LOC: HO.MRI 15:41
PROVIDERS: Absent Provider Internal Medicine Rheumatology; PCP Internal Medicine; Visit Provider Internal Medicine
DX: M41.9 Scoliosis, unspecified (principal); G89.29 Other chronic pain; M54.50 Low back pain, unspecified; M13.0 Polyarthritis, unspecified; F17.210 Nicotine dependence, cigarettes, uncomplicated; M47.816 Spondylosis without myelopathy or radiculopathy, lumbar region; Z79.899 Other long term (current) drug therapy
CPT/HCPCS: 36415; 72146; 72200; 85652; 86140

== ENCOUNTER → 2021-09-30 14:25 | Outpatient (BNVA) | payer BC, SELFPAY | PROVIDERS: PCP Internal Medicine; Referring Provider Internal Medicine; Visit Provider Internal Medicine | DX: Z13.89 Encounter for screening for other disorder (principal) ==

== ENCOUNTER → 2021-10-16 11:50 | Outpatient (BNVA) | payer BC, SELFPAY | PROVIDERS: PCP Internal Medicine; Visit Provider Internal Medicine | DX: Z13.89 Encounter for screening for other disorder (principal) ==

== ENCOUNTER → 2021-11-23 13:00 | Outpatient (REF) | payer BC, SELFPAY ==
--- NOTE | 2021-11-23 13:03 | CA_ITS ---
Transthoracic Echocardiogram Patient (Last, First, Middle): Letty Donis, Gender: Female Date of : 1975 Age: 46 Procedure Date: 11/23/2021 Procedure Type: Transthoracic Echocardiogram Location: OP Height: 157.48 cm Weight: 88.91 kg BSA: 1.90 m2 Heart Rate: bpm BP: 130 / 76 mmHg Ice Hockey Coach: SHARON Referring MD: Jose Alberto Rosen MD Symptoms: I49.1 - Atrial premature depolarization Study Quality: Fair Conclusions: - The left ventricular systolic function is normal. The visually estimated ejection fraction is between 65-70%. - No obvious valvular pathology seen on this study. Findings Left Ventricle Normal left ventricular cavity size. There is normal left ventricular wall thickness. The left ventricular systolic function is normal. The visually estimated ejection fraction is between 65-70%. There is no evidence of regional wall motion abnormalities. Diastolic function is normal for age. Right Ventricle Normal right ventricular cavity size and systolic function. Atria Both atria are normal in size. Aortic Valve There is a normal trileaflet aortic valve. There is no aortic valve stenosis. There is no aortic valve regurgitation. Mitral Valve The mitral valve appears normal. There is trace mitral valve regurgitation. There is no mitral valve stenosis. Pulmonic Valve The pulmonic valve is likely normal. Tricuspid Valve Normal tricuspid valve structure. There is trace tricuspid valve regurgitation. The pulmonary artery systolic pressure is normal. Great Vessels The aortic annulus, sinuses of valsalva, and asc aorta are normal in size. Venous The inferior vena cava is normal in size and collapses greater than 50% with inspiration. Pericardium/Pleural There is no evidence of pericardial effusion. Prior Study Comparison No significant change compared to prior study dated: 08/24/2002. Recommendations, Care & Conclusions No obvious valvular pathology seen on this study. Measurements 2D Linear Measurements IVSd: 0.80 0.6-0.9/0.6-1.0 cm LVIDd: 3.86 3.9-5.3/4.2-5.9 cm LVIDd Index: 2.03 2.4-3.2/2.2-3.1 cm/m2 LVIDs: 2.44 2.0-3.6 cm LVPWd: 1.04 0.7-1.1 cm LA Diam: 2.90 2.7-3.8/3.0-4.0 cm LAIDs Index: 1.53 1.5-2.3 cm/m2 LV Mass: 132.69 67-162/88-224 g LV Mass Index: 69.83 43-95/49-115 g/m2 LVOT Diam: 2.00 3.0+(-)1.3 cm Mitral Valve MV Pk E: 0.69 MV PK A: 0.83 MV Decel Time: 114.00 E/A: 0.80 E'Lateral: 12.70 E'Medial: 7.83 E/E' Med: 8.80 E/E' Lat: 5.40 PHT: 33.00 MVA PHT: 6.67 Decel Piute: 6.01 Aortic Valve AoV Pk Jose Maria: 1.72 AoV Mn Jose Maria: 1.07 AoV VTI: 0.29 AoV Pk Grad: 12.00 Aov Mn Grad: 5.00 TONI Cont.VTI: 2.32 LVOT LVOT Pk Jose Maria: 1.08 LVOT Mn Jose Maria: 0.68 LVOT VTI: 0.21 LVOT Pk Grad: 5.00 LVOT Mn Grad: 2.00 LVOT Diam: 2.00 LVOT Area: 3.14 Diastolic Function MV Pk E: 0.69 MV Pk A: 0.83 E/A: 0.80 E'Medial: 7.83 E/E' Med: 8.80 E' Laterial: 12.70 E/E' Lat: 5.40 Right Ventricle TAPSE (mm): 20.30 TVS' Jose Maria: 9.79 Tricuspid Valve TR Pk Jose Maria: 1.98 TR Pk Grad: 16.00 RA Press: 3.00 RVSP: 19.00 Great Vessels Aorta Sinus of Valsalva: 2.59 2.0-3.[address] Ridge: 2.33 1.7-3.4 cm Ao Asc: 2.70 2.1-3.4 cm Updated in Other Vendor System with Status of Final Jose Alberto Rosen MD electronically signed on 11/24/2021 10:09:32 AM with status of Final
== END ==
LOC: HO.CARD 13:00
PROVIDERS: Visit Provider Internal Medicine
DX: G47.33 Obstructive sleep apnea (adult) (pediatric) (principal); I49.1 Atrial premature depolarization
CPT/HCPCS: 93306; 95806

== ENCOUNTER 2021-12-25 09:54 | Outpatient (REF) | payer BC, SELFPAY ==
[2021-12-25 11:17] LABS: Alanine Aminotransferase 24 U/L (0-31); Albumin Level 4.6 g/dL (3.5-5.0); Alkaline Phosphatase 84 U/L (39-117); Anion Gap 13 (12-20); Aspartate Amino Transferase 21 U/L (5-31); Bilirubin Total 0.6 mg/dL (0.0-1.0); Blood Urea Nitrogen 11 mg/dL (9-16); Calcium 9.3 mg/dL (8.4-10.2); Carbon Dioxide 22 mmol/L (22-29); Chloride 108 mmol/L (96-108); Cholesterol 278 mg/dL; Estimated Glomerular Filt Rate > 60; Glucose Fasting 95 mg/dL (60-99); HDL Cholesterol 50 mg/dL; LDL Cholesterol Calculated 170 mg/dl; Potassium 4.4 mmol/L (3.3-5.1); Sodium 139 mmol/L (135-145); Total Protein 7.6 g/dL (6.5-8.0); Triglycerides 293 mg/dL
[2021-12-25 11:45] LABS: Folate 13.7 ng/mL (> or = 4.0); Vitamin B12 319 pg/mL (200-900)
[2021-12-30 13:25] LABS: Vitamin D 25-OH, D2 <4 ng/mL; Vitamin D 25-OH, D3 31 ng/mL; Vitamin D 25-OH, Total 31 ng/mL (30-100)
== END 2021-12-25 09:55 | disposition home or self-care (01) ==
LOC: HO.LAB 09:54
PROVIDERS: PCP Internal Medicine; Visit Provider Internal Medicine
DX: E78.5 Hyperlipidemia, unspecified (principal); E55.9 Vitamin D deficiency, unspecified; M41.9 Scoliosis, unspecified; E53.8 Deficiency of other specified B group vitamins
CPT/HCPCS: 36415; 80053; 80061; 82306; 82607; 82746

== ENCOUNTER 2022-05-04 08:53 | Outpatient (REF) | payer BC, SELFPAY ==
--- NOTE | ~2022-05-04 | XR_ITS ---
EXAMINATION: LUMBAR SPINE AND DORSAL SPINE. CLINICAL INFORMATION: Scoliosis. COMPARISON: None TECHNIQUE: Thoracic spine 3 views and lumbar spine 3 views. FINDINGS: Lumbar spine: There is maintained lumbar lordosis. The vertebral heights, alignment and disc heights are normal. There is moderate levo rotoscoliosis of lumbar spine the vertebral heights are preserved. Loss of disc height at several disc levels with mild ventral spondylosis at L2-L3 disc level. No aggressive lytic or sclerotic process seen. SI joints are symmetrical with mild sclerosis of left SI joint. The soft tissues are normal. XR/XR thoracic spine 3V IMPRESSION: 1. Moderate levo rotoscoliosis of lumbar spine. No visible acute fracture, dislocation or lytic process seen. 2. Mild degenerative disc changes with ventral spondylosis at L2-L3 disc level. 3. Suspect mild left sacroiliitis.
--- NOTE | ~2022-05-04 | XR_ITS ---
EXAMINATION: XR ABDOMEN KUB CLINICAL INDICATION: Kidney stone COMPARISON: None TECHNIQUE: AP view of the abdomen. FINDINGS: No calcifications. Normal bowel gas pattern. Right upper quadrant surgical clips suggestive of previous cholecystectomy. Thoracolumbar scoliosis and degenerative changes of the spine. XR/XR KUB IMPRESSION: No stone seen.
--- NOTE | ~2022-05-04 | XR_ITS ---
EXAMINATION: LUMBAR SPINE AND DORSAL SPINE. CLINICAL INFORMATION: Scoliosis. COMPARISON: None TECHNIQUE: Thoracic spine 3 views and lumbar spine 3 views. FINDINGS: Lumbar spine: There is maintained lumbar lordosis. The vertebral heights, alignment and disc heights are normal. There is moderate levo rotoscoliosis of lumbar spine the vertebral heights are preserved. Loss of disc height at several disc levels with mild ventral spondylosis at L2-L3 disc level. No aggressive lytic or sclerotic process seen. SI joints are symmetrical with mild sclerosis of left SI joint. The soft tissues are normal. XR/XR lumbar spine 2-3V IMPRESSION: 1. Moderate levo rotoscoliosis of lumbar spine. No visible acute fracture, dislocation or lytic process seen. 2. Mild degenerative disc changes with ventral spondylosis at L2-L3 disc level. 3. Suspect mild left sacroiliitis.
[2022-05-04 10:28] LABS: Alanine Aminotransferase 15 U/L (0-31); Albumin Level 4.5 g/dL (3.5-5.0); Alkaline Phosphatase 82 U/L (39-117); Anion Gap 15 (12-20); Aspartate Amino Transferase 16 U/L (5-31); Bilirubin Total 0.4 mg/dL (0.0-1.0); Blood Urea Nitrogen 18 mg/dL (9-16); Calcium 9.6 mg/dL (8.4-10.2); Carbon Dioxide 23 mmol/L (22-29); Chloride 108 mmol/L (96-108); Cholesterol 190 mg/dL; Estimated Glomerular Filt Rate > 60; Glucose Fasting 92 mg/dL (60-99); HDL Cholesterol 54 mg/dL; LDL Cholesterol Calculated 109 mg/dl; Potassium 4.2 mmol/L (3.3-5.1); Sodium 142 mmol/L (135-145); Total Protein 7.2 g/dL (6.5-8.0); Triglycerides 135 mg/dL
[2022-05-04 12:54] LABS: Folate 9.1 ng/mL (> or = 4.0); Vitamin B12 308 pg/mL (200-900)
[2022-05-04 12:55] LABS: Vitamin D 25-OH Total 28.1 ng/mL (>30)
== END 2022-05-04 08:54 | disposition home or self-care (01) ==
LOC: HO.LAB 08:53
PROVIDERS: PCP Internal Medicine; Visit Provider Internal Medicine
DX: N20.0 Calculus of kidney (principal); M41.9 Scoliosis, unspecified; E78.2 Mixed hyperlipidemia; E78.5 Hyperlipidemia, unspecified; E55.9 Vitamin D deficiency, unspecified; E53.8 Deficiency of other specified B group vitamins
CPT/HCPCS: 36415; 72072; 72100; 74018; 80053; 80061; 82306; 82607; 82746

== ENCOUNTER 2022-06-30 08:42 | Emergency (ER) | payer BC, SELFPAY ==
[2022-06-30 09:14] VITALS: BP 114/63; PULSE 119; RESP 20; TEMP 39.1; O2SAT 98; BMI 34.7
[2022-06-30 09:41] LABS: Hematocrit 39.8 % (37.0-47.0); Hemoglobin 13.4 g/dl (12.0-16.0); Mean Corpuscular HGB Conc 33.7 g/dl (31.0-35.0); Mean Corpuscular Hemoglobin 29.8 pg (27.0-33.0); Mean Corpuscular Volume 88.6 fL (80.0-98.0); Mean Platelet Volume 9.6 fL (9.4-12.3); Platelet Count 302 X10*3/uL (160-400); Red Blood Count 4.49 X10*6/uL (4.20-5.50); Red Cell Distribution Width 13.3 % (11.0-16.0)
[2022-06-30 09:42] LABS: WBC ABN SCTR FOR CBC 1
--- NOTE | 2022-06-30 09:48 | ED.GENADULT ---
HPI - General Adult General Chief complaint: Nausea/Vomiting/Diarrhea Stated complaint: Body aches/Headache/Vomiting Time Seen by Provider: 06/30/22 09:48 Source: patient Mode of arrival: ambulatory Limitations: no limitations History of Present Illness HPI narrative: Patient is a 47 year old assigned female at with a history of HLD and JENNIFER presenting to the emergency department today with nausea, vomiting, and body aches. Patient states that since 2pm yesterday she has had nausea, vomiting, and body aches. Patient denies any dizziness, lightheadedness, abdominal pain, nausea, vomiting, blurry vision, double vision, loss of vision, chest pain, difficulty breathing, shortness of breath, back pain, night sweats, pain with urination, increased urinary frequency, increased urinary urgency, blood in her urine or stool, syncope or a near syncopal episode, recent trauma or falls, bowel incontinence, bladder incontinence, bowel retention, bladder retention, or any other complaints at this time. Onset (ago): day(s) (1) Severity: mild Severity scale (1-10): 2 Relieving factors: none Exacerbating factors: none Associated symptoms: nausea/vomiting Treatments prior to arrival: none Related Data Previous Rx's Medication Instructions Recorded clonazepam 1 mg tablet 1 mg PO BID PRN anxiety 30 days 09/07/21 #60 tabs topiramate 50 mg tablet 50 mg PO DAILY 90 days #90 tabs 10/15/21 [id number]-vglnvrwelhcgx-yduzhodi 1 cap PO Q8H PRN pain 30 days #90 12/31/21 50 mg-300 mg-40 mg capsule caps cholecalciferol (vitamin D3) 25 25 mcg PO DAILY 90 days #90 caps 02/10/22 mcg (1,000 unit) capsule amitriptyline 10 mg tablet 30 mg PO DAILY 30 days #90 tabs 03/30/22 atorvastatin 10 mg tablet 10 mg PO BEDTIME 90 days #90 tabs 04/13/22 ropinirole 0.5 mg tablet 0.5 mg PO BEDTIME 90 days #90 tabs 06/02/22 fentanyl 25 mcg/hr transdermal 1 patch transdermal Q48H 30 days 06/15/22 patch #15 ea oxycodone-acetaminophen 5 mg-325 1 tab PO QID PRN pain 30 days #120 06/15/22 mg tablet tabs pregabalin 150 mg capsule 150 mg PO DAILY 30 days #30 caps 06/15/22 penicillin V potassium 500 mg 500 mg PO BID 10 days #20 tabs 06/30/22 tablet Allergies Allergy/AdvReac Type Severity Reaction Status Date / Time apple [Apple] Allergy Severe ANGIOEDEMA Verified 05/12/22 13:40 nut - unspecified [nut] Allergy Severe SWELLING Verified 05/12/22 13:40 pollen extracts [POLLEN] Allergy Intermediate ITCHY Verified 05/12/22 13:40 EYES, SNEEZING sertraline Allergy Intermediate anxiety Verified 05/12/22 13:40 suvorexant [Belsomra] Allergy Intermediate hallucinati Verified 05/12/22 13:40 ons Review of Systems Constitutional: Constitutional: Reports no additional constitutional complaints, Reports body ache(s), Denies chills, Denies fever(s) and Denies night sweats Eyes: Eyes: Reports no additional eye complaints, Denies blurry vision, Denies change in vision, Denies diplopia, Denies eye discharge, Denies loss of vision and Denies eye pain ENT: Denies dizziness Cardiovascular: Cardiovascular: Reports no additional cardiovascular complaints, Denies chest pain, Denies lightheadedness, Denies Loss of Consciousness and Denies dyspnea Respiratory: Respiratory: Reports no additional respiratory complaints and Denies dyspnea Gastrointestinal: Gastrointestinal: Reports no additional gastrointestinal complaints, Denies abdominal pain, Denies melena, Denies hematochezia, Denies change in bowel habits, Denies change in stool character, Reports nausea and Reports vomiting Genitourinary: Genitourinary: Denies hematuria, Denies urinary frequency, Denies dysuria, Denies urinary incontinence, Denies urinary hesitancy and Denies urinary urgency Musculoskeletal: Musculoskeletal: Reports no additional musculoskeletal complaints, Denies numbness and Denies tingling Neurologic: Denies dizziness, Denies loss of vision, Denies numbness and Denies tingling Psychiatric: Psychiatric: Reports no additional psychiatric complaints Endocrine: Endocrine: Reports no additional endocrine complaints Hematologic/Lymphatic: Hematologic/Lymphatic: Reports no additional hematologic/lymphatic complaints Allergic/Immunologic: Allergic/Immunologic: Reports no additional allergic/immunologic complaints PMFSH Past Medical History Attestation statement: The following information was validated with the patient. Source: old records reviewed and nursing notes reviewed Medical History B12 deficiency Bilateral sacroiliitis Chronic lower back pain Dizziness Fibromyalgia JENNIFER (generalized anxiety disorder) Hypovitaminosis D alf (current) use of opiate analgesic Migraines Mixed hyperlipidemia Obesity Osteoarthritis of lumbar spine Palpitations Polyarticular arthritis Scoliosis of thoracolumbar spine Tachycardia Transaminitis Surgical History History of cholecystectomy History of deviated nasal septum History of hysterectomy History of removal of ovarian cyst History of tonsillectomy History of tubal ligation Family History Family History Father Anxiety Depression Mother Breast cancer Maternal Grandmother Myocardial infarction Maternal Aunt Breast cancer Family/Other FH: mental illness Social History Social History Housing: House Alcohol intake: never Patient Tobacco Use Status: Current everyday Tobacco user Tobacco use type: Cigarette Cigarettes Per Day: 6 Years Smoked: 20 +/- e-Cigarette/Vaping Use: Never Used Second Hand Smoke Exposure: Yes Advance Directives: No Advance Directives Information Provided: No service: No Current occupational status: employed 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 Current occupational exposures/hazards: No Cognitive needs: No Hearing needs: No Vision needs: No Physical Exam ED Vital Signs: Vital Signs - 24 hr 06/30/22 09:14 Temperature 102.4 F H Pulse Rate 119 H Respiratory Rate 20 Blood Pressure 114/63 Pulse Oximetry 98 Oxygen Delivery Method Room Air BMI result Body Mass Index 34.7 Const General: cooperative, no acute distress, alert and awake Nutritional Appearance: well nourished Orientation/consciousness: patient oriented x3 Limitations: no limitations HENMT Head: Yes normal to inspection and Yes atraumatic Ears: hearing grossly normal bilaterally and external ears normal General nose exam: Normal external nose present, no nasal discharge noted and no epistaxis Face and sinus: Yes normal facial exam, No abrasion and No laceration Mouth: Normal oral and palatal mucosa present, no drooling and no muffled voice Throat: Yes posterior oropharynx abnormal (erythema) Eyes General: appearance normal, both eyes and all related structures Periorbital: periorbital findings normal Eyelids: Yes eyelids normal Conjunctivae: conjunctivae normal Pupils: Equal, round and reactive pupils present EOM: EOMs intact bilaterally Neck Neck: Yes normal visual inspection, Yes full ROM and Yes no lymphadenopathy Chest Chest palpation & inspection: normal inspection of the chest Resp Effort & Inspection: normal respiratory effort and able to speak in complete sentences Auscultation: clear to auscultation bilaterally Cardio Rate: regular rate Rhythm: regular rhythm GI Inspection: Yes normal to inspection Neuro General: patient oriented x3 and moves all extremities Cranial nerves: Yes Equal, round and reactive pupils present Cognition (Neuro): normal cognition Motor exam (neuro): 5/5 motor strength present throughout Sensory Exam: Normal double simultaneous stimulation for sensation Coordination: [id number]-na-wtej test normal Extrem General: Yes normal to inspection, Yes full ROM and Yes capillary refill normal Psych Appearance: grossly normal Mental Status: mental status grossly normal Affect: normal affect Attitude: cooperative Thought process: Normal thought process present Thought content: Normal thought content present Insight: Good insight present (Psych) Medications Administered Discontinued Medications Generic Name Dose Route Start Last Admin Trade Name Freq PRN Reason Stop Dose Admin Acetaminophen 650 mg 06/30/22 09:18 06/30/22 10:08 Acetaminophen 325 Mg Tablet PO 06/30/22 09:19 Not Given ONCE ONE Acetaminophen 975 mg 06/30/22 09:49 06/30/22 10:09 Acetaminophen 325 Mg Tablet PO 06/30/22 09:50 975 mg ONCE ONE Administration Sodium Chloride 1,000 mls @ 999 mls/hr 06/30/22 10:00 06/30/22 11:19 Ns IV 06/30/22 11:00 Infused .Q1H1M MATEO Infusion Ketorolac Tromethamine 15 mg 06/30/22 09:55 06/30/22 10:09 Ketorolac Tromethamine 15 Mg/Ml Vial IVPUSH 06/30/22 09:56 15 mg ONCE ONE Administration Ondansetron HCl 4 mg 06/30/22 09:49 06/30/22 10:09 Ondansetron Hcl 4 Mg/2 Ml Vial IVPUSH 06/30/22 09:50 4 mg ONCE ONE Administration Penicillin V Potassium 500 mg 06/30/22 11:53 06/30/22 11:57 Penicillin V Potassium 250 Mg Tablet PO 06/30/22 11:54 500 mg ONCE ONE Administration Medical Decision Making Medical Decision Making MDM Narrative: Patient is a 47 year old assigned female at with a history of JENNIFER and HLD presenting to the emergency department today with body aches, nausea, and vomiting. Patient's physical exam showed an erythematous posterior oropharynx. Patient's blood work showed an elevated WBC count of 20.2. Patient's urine showed no acute process. Patient's strep test was positive. Patient's clinical presentation is not consistent with sepsis (@1145). I explained my physical exam findings as well as all test results to the patient. I answered all questions asked by the patient. Patient received IV fluids, torado, and Zofran which she stated helped her symptoms significantly. I stressed the importance of the patient taking her medication as prescribed. I stressed the importance of the patient following up with her primary care provider. I stressed the importance of the patient returning to the emergency department immediately if her symptoms were to worsen or if she were to develop any dizziness, shortness of breath, difficulty breathing, chest pain, blurry vision, loss of vision, nausea, vomiting, abdominal pain, fever, chills, back pain, or any other complaints. Patient verbalized agreement and understanding with this treatment plan and discharge. Differential Diagnosis Differential Diagnoses: The differential diagnosis associated with the presentation includes strep pharyngitis Lab Data MDM Lab Attestation statement: I reviewed the patient's lab results. 06/30/22 09:30 06/30/22 09:30 Labs: Lab Results 06/30/22 06/30/22 06/30/22 Range/Units 09:30 09:30 09:30 WBC 20.2 H (4.8-10.8) X10*3/uL RBC 4.49 (4.20-5.50) X10*6/uL Hgb 13.4 (12.0-16.0) g/dl Hct 39.8 (37.0-47.0) % MCV 88.6 (80.0-98.0) fL MCH 29.8 (27.0-33.0) pg MCHC 33.7 (31.0-35.0) g/dl RDW 13.3 (11.0-16.0) % Plt Count 302 (160-400) X10*3/uL MPV 9.6 (9.4-12.3) fL Immature Gran % (Auto) Cancelled Neut % (Auto) Cancelled Lymph % (Auto) Cancelled Christian % (Auto) Cancelled Eos % (Auto) Cancelled Baso % (Auto) Cancelled Lymph # (Auto) Cancelled Christian # (Auto) Cancelled Eos # (Auto) Cancelled Baso # (Auto) Cancelled Abs Immat Gran (auto) Cancelled Absolute Neuts (auto) Cancelled Absolute Nucleated RBC 0.000 (0.0-0.012) X10*3/uL Nucleated RBC % (auto) 0.0 (0.0-0.2) /100WBC Neutrophils % (Manual) 87 H (45-73) % Band Neutrophils % 3 (3-5) % Lymphocytes % (Manual) 7 L (20-40) % Monocytes % (Manual) 3 (2-11) % Abs Neuts (Manual) 18.2 H (2.0-8.3) X10*3/uL Lymphocytes # (Manual) 1.4 (1.2-4.9) X10*3/uL Monocytes # (Manual) 0.6 (0.1-1.2) X10*3/uL Toxic Vacuolation PRESENT Platelet Estimate NORMAL (NORMAL) Plt Morphology Comment NORMAL RBC Morphology NORMAL Sodium 138 (135-145) mmol/L Potassium 3.4 (3.3-5.1) mmol/L Chloride 105 (96-108) mmol/L Carbon Dioxide 25 (22-29) mmol/L Anion Gap 11 L (12-20) BUN 12 (9-16) mg/dL Creatinine 0.85 (0.5-1.4) mg/dL Estim Creat Clear Calc 82.5 Estimated GFR > 60 Random Glucose 117 H (60-115) mg/dL Calcium 8.9 D (8.4-10.2) mg/dL Total Bilirubin 0.5 (0.0-1.0) mg/dL Direct Bilirubin 0.2 (0.0-0.5) mg/dL AST 22 (5-31) U/L ALT 15 (0-31) U/L Alkaline Phosphatase 81 (39-117) U/L Total Protein 7.3 (6.5-8.0) g/dL Albumin 4.4 (3.5-5.0) g/dL Lipase 15 (8-78) U/L Urine Color Urine Appearance Urine pH (5.0-9.0) Ur Specific [place] (1.005-1.025) Urine Protein (Neg-Trace) mg/dL Urine Glucose (UA) (Negative) mg/dL Urine Ketones (Negative) mg/dL Urine Blood (Negative) Urine Nitrite (Negative) Ur Leukocyte Esterase (Negative) Urine RBC (0-2) /HPF Urine WBC (0-5) /HPF Ur Squamous Epith Cells (0-2) /HPF Urine Bacteria (None Seen) Hyaline Casts (0-2) /LPF Urine Test (NEGATIVE) Respiratory Panel Rider Adenovirus (Rapid PCR) (Not Detect.) B.pert (TEM-PCR) (Not Detect.) B.parapertussis DNA PCR (Not Detect.) C. pneumoniae DNA (PCR) (Not Detect.) Coronavirus OC43 (PCR) (Not Detect.) Coronavirus HKU1 (PCR) (Not Detect.) Coronavirus 229E (PCR) (Not Detect.) Coronavirus NL63 (PCR) (Not Detect.) Human Metapneumovir PCR (Not Detect.) Influenza A (RT-PCR) (Not Detect.) Influenza Type A (PCR) NEGATIVE (Negative) Influenza B (RT-PCR) (Not Detect.) Influenza Type B (PCR) NEGATIVE (Negative) M. pneumoniae (PCR) (Not Detect.) Parainfluenza 1 (PCR) (Not Detect.) Parainfluenza 2 (PCR) (Not Detect.) Parainfluenza 3 (PCR) (Not Detect.) Parainfluenza 4 (PCR) (Not Detect.) RSV (PCR) (Not Detect.) RSV RNA Qual (PCR) NEGATIVE (Negative) Entero/Rhino (PCR) (Not Detect.) SARS-CoV-2 RNA (RT-PCR) NEGATIVE (Negative) S. pyogenes GrpA YULY (Negative) 06/30/22 06/30/22 06/30/22 Range/Units 11:00 11:00 11:20 WBC (4.8-10.8) X10*3/uL RBC (4.20-5.50) X10*6/uL Hgb (12.0-16.0) g/dl Hct (37.0-47.0) % MCV (80.0-98.0) fL MCH (27.0-33.0) pg MCHC (31.0-35.0) g/dl RDW (11.0-16.0) % Plt Count (160-400) X10*3/uL MPV (9.4-12.3) fL Immature Gran % (Auto) Neut % (Auto) Lymph % (Auto) Christian % (Auto) Eos % (Auto) Baso % (Auto) Lymph # (Auto) Christian # (Auto) Eos # (Auto) Baso # (Auto) Abs Immat Gran (auto) Absolute Neuts (auto) Absolute Nucleated RBC (0.0-0.012) X10*3/uL Nucleated RBC % (auto) (0.0-0.2) /100WBC Neutrophils % (Manual) (45-73) % Band Neutrophils % (3-5) % Lymphocytes % (Manual) (20-40) % Monocytes % (Manual) (2-11) % Abs Neuts (Manual) (2.0-8.3) X10*3/uL Lymphocytes # (Manual) (1.2-4.9) X10*3/uL Monocytes # (Manual) (0.1-1.2) X10*3/uL Toxic Vacuolation Platelet Estimate (NORMAL) Plt Morphology Comment RBC Morphology Sodium (135-145) mmol/L Potassium (3.3-5.1) mmol/L Chloride (96-108) mmol/L Carbon Dioxide (22-29) mmol/L Anion Gap (12-20) BUN (9-16) mg/dL Creatinine (0.5-1.4) mg/dL Estim Creat Clear Calc Estimated GFR Random Glucose (60-115) mg/dL Calcium (8.4-10.2) mg/dL Total Bilirubin (0.0-1.0) mg/dL Direct Bilirubin (0.0-0.5) mg/dL AST (5-31) U/L ALT (0-31) U/L Alkaline Phosphatase (39-117) U/L Total Protein (6.5-8.0) g/dL Albumin (3.5-5.0) g/dL Lipase (8-78) U/L Urine Color Yellow Urine Appearance Clear Urine pH 5.5 (5.0-9.0) Ur Specific [place] 1.020 (1.005-1.025) Urine Protein 30 (1+) H (Neg-Trace) mg/dL Urine Glucose (UA) Negative (Negative) mg/dL Urine Ketones Negative (Negative) mg/dL Urine Blood Trace H (Negative) Urine Nitrite Negative (Negative) Ur Leukocyte Esterase Trace H (Negative) Urine RBC 3-5 H (0-2) /HPF Urine WBC 11-20 H (0-5) /HPF Ur Squamous Epith Cells 3-5 (0-2) /HPF Urine Bacteria None Seen (None Seen) Hyaline Casts 0-2 (0-2) /LPF Urine Test NEGATIVE (NEGATIVE) Respiratory Panel Rider Adenovirus (Rapid PCR) (Not Detect.) B.pert (TEM-PCR) (Not Detect.) B.parapertussis DNA PCR (Not Detect.) C. pneumoniae DNA (PCR) (Not Detect.) Coronavirus OC43 (PCR) (Not Detect.) Coronavirus HKU1 (PCR) (Not Detect.) Coronavirus 229E (PCR) (Not Detect.) Coronavirus NL63 (PCR) (Not Detect.) Human Metapneumovir PCR (Not Detect.) Influenza A (RT-PCR) (Not Detect.) Influenza Type A (PCR) (Negative) Influenza B (RT-PCR) (Not Detect.) Influenza Type B (PCR) (Negative) M. pneumoniae (PCR) (Not Detect.) Parainfluenza 1 (PCR) (Not Detect.) Parainfluenza 2 (PCR) (Not Detect.) Parainfluenza 3 (PCR) (Not Detect.) Parainfluenza 4 (PCR) (Not Detect.) RSV (PCR) (Not Detect.) RSV RNA Qual (PCR) (Negative) Entero/Rhino (PCR) (Not Detect.) SARS-CoV-2 RNA (RT-PCR) (Negative) S. pyogenes GrpA YULY Positive A (Negative) 06/30/22 Range/Units 11:22 WBC (4.8-10.8) X10*3/uL RBC (4.20-5.50) X10*6/uL Hgb (12.0-16.0) g/dl Hct (37.0-47.0) % MCV (80.0-98.0) fL MCH (27.0-33.0) pg MCHC (31.0-35.0) g/dl RDW (11.0-16.0) % Plt Count (160-400) X10*3/uL MPV (9.4-12.3) fL Immature Gran % (Auto) Neut % (Auto) Lymph % (Auto) Christian % (Auto) Eos % (Auto) Baso % (Auto) Lymph # (Auto) Christian # (Auto) Eos # (Auto) Baso # (Auto) Abs Immat Gran (auto) Absolute Neuts (auto) Absolute Nucleated RBC (0.0-0.012) X10*3/uL Nucleated RBC % (auto) (0.0-0.2) /100WBC Neutrophils % (Manual) (45-73) % Band Neutrophils % (3-5) % Lymphocytes % (Manual) (20-40) % Monocytes % (Manual) (2-11) % Abs Neuts (Manual) (2.0-8.3) X10*3/uL Lymphocytes # (Manual) (1.2-4.9) X10*3/uL Monocytes # (Manual) (0.1-1.2) X10*3/uL Toxic Vacuolation Platelet Estimate (NORMAL) Plt Morphology Comment RBC Morphology Sodium (135-145) mmol/L Potassium (3.3-5.1) mmol/L Chloride (96-108) mmol/L Carbon Dioxide (22-29) mmol/L Anion Gap (12-20) BUN (9-16) mg/dL Creatinine (0.5-1.4) mg/dL Estim Creat Clear Calc Estimated GFR Random Glucose (60-115) mg/dL Calcium (8.4-10.2) mg/dL Total Bilirubin (0.0-1.0) mg/dL Direct Bilirubin (0.0-0.5) mg/dL AST (5-31) U/L ALT (0-31) U/L Alkaline Phosphatase (39-117) U/L Total Protein (6.5-8.0) g/dL Albumin (3.5-5.0) g/dL Lipase (8-78) U/L Urine Color Urine Appearance Urine pH (5.0-9.0) Ur Specific [place] (1.005-1.025) Urine Protein (Neg-Trace) mg/dL Urine Glucose (UA) (Negative) mg/dL Urine Ketones (Negative) mg/dL Urine Blood (Negative) Urine Nitrite (Negative) Ur Leukocyte Esterase (Negative) Urine RBC (0-2) /HPF Urine WBC (0-5) /HPF Ur Squamous Epith Cells (0-2) /HPF Urine Bacteria (None Seen) Hyaline Casts (0-2) /LPF Urine Test (NEGATIVE) Respiratory Panel Rider See Note Adenovirus (Rapid PCR) Not Detected (Not Detect.) B.pert (TEM-PCR) Not Detected (Not Detect.) B.parapertussis DNA PCR Not Detected (Not Detect.) C. pneumoniae DNA (PCR) Not Detected (Not Detect.) Coronavirus OC43 (PCR) Not Detected (Not Detect.) Coronavirus HKU1 (PCR) Not Detected (Not Detect.) Coronavirus 229E (PCR) Not Detected (Not Detect.) Coronavirus NL63 (PCR) Not Detected (Not Detect.) Human Metapneumovir PCR Not Detected (Not Detect.) Influenza A (RT-PCR) Not Detected (Not Detect.) Influenza Type A (PCR) (Negative) Influenza B (RT-PCR) Not Detected (Not Detect.) Influenza Type B (PCR) (Negative) M. pneumoniae (PCR) Not Detected (Not Detect.) Parainfluenza 1 (PCR) Not Detected (Not Detect.) Parainfluenza 2 (PCR) Not Detected (Not Detect.) Parainfluenza 3 (PCR) Not Detected (Not Detect.) Parainfluenza 4 (PCR) Not Detected (Not Detect.) RSV (PCR) Not Detected (Not Detect.) RSV RNA Qual (PCR) (Negative) Entero/Rhino (PCR) Not Detected (Not Detect.) SARS-CoV-2 RNA (RT-PCR) Not Detected (Negative) S. pyogenes GrpA YULY (Negative) Discharge Plan Discharge Clinical Impression: Strep pharyngitis Patient Disposition: Home, Self-Care Instructions: Strep Throat (ED) Additional Instructions: Follow up with your primary care provider. Return to the emergency department immediately if your symptoms worsen or if you develop any dizziness, shortness of breath, difficulty breathing, chest pain, blurry vision, loss of vision, nausea, vomiting, abdominal pain, fever, chills, back pain, or any other complaints. Prescriptions: New penicillin V potassium 500 mg tablet 500 mg PO BID 10 Days Qty: 20 0RF No Action clonazepam 1 mg tablet 1 mg PO BID PRN (Reason: anxiety) 30 Days Qty: 60 0RF topiramate 50 mg tablet 50 mg PO DAILY 90 Days Qty: 90 3RF cholecalciferol (vitamin D3) 25 mcg (1,000 unit) capsule 25 mcg PO DAILY 90 Days Qty: 90 1RF amitriptyline 10 mg tablet 30 mg PO DAILY 30 Days Qty: 90 6RF atorvastatin 10 mg tablet 10 mg PO BEDTIME 90 Days Qty: 90 1RF ropinirole 0.5 mg tablet 0.5 mg PO BEDTIME 90 Days Qty: 90 1RF fentanyl 25 mcg/hr patch 72 hour 1 patch transdermal Q48H 30 Days Qty: 15 0RF oxycodone-acetaminophen 5-325 mg tablet 1 tab PO QID PRN (Reason: pain) 30 Days Qty: 120 0RF pregabalin 150 mg capsule 150 mg PO DAILY 30 Days Qty: 30 0RF kfutbwbpnh-jknfugzhrjqdi-lncj 50-300-40 mg capsule 1 cap PO Q8H PRN (Reason: pain) 30 Days Qty: 90 0RF Referrals: Rocio Alvarado MD [Primary Care Provider] - Stand Alone Forms: Work/School Release Interventions: ED Discharge Assessment Last Done: 06/30/22 11:58 Discharge Date/Time: 06/30/22 12:01 Print Language: Kinyarwanda
--- NOTE | 2022-06-30 09:50 | PC.NURSE ---
47 y/o F pw headache, n/v, fever for a few days. Neg home covid test. otherwise well, aox3, VSS at this time. labs drawn and sent, respiratory panel sent
[2022-06-30 09:52] LABS: Alanine Aminotransferase 15 U/L (0-31); Albumin Level 4.4 g/dL (3.5-5.0); Alkaline Phosphatase 81 U/L (39-117); Anion Gap 11 (12-20); Aspartate Amino Transferase 22 U/L (5-31); Bilirubin Direct 0.2 mg/dL (0.0-0.5); Bilirubin Total 0.5 mg/dL (0.0-1.0); Blood Urea Nitrogen 12 mg/dL (9-16); Calcium 8.9 mg/dL (8.4-10.2); Carbon Dioxide 25 mmol/L (22-29); Chloride 105 mmol/L (96-108); Creatinine Clr Calc Pharmacy 82.5; Estimated Glomerular Filt Rate > 60; Glucose Random 117 mg/dL (60-115); Lipase 15 U/L (8-78); Potassium 3.4 mmol/L (3.3-5.1); Sodium 138 mmol/L (135-145); Total Protein 7.3 g/dL (6.5-8.0)
[2022-06-30 10:08] LABS: Band Neutrophils Percent 3 % (3-5); Lymphocytes Percent Manual 7 % (20-40); Monocytes Percent Manual 3 % (2-11); Neutrophils Percent Manual 87 % (45-73); Platelet Estimate NORMAL (NORMAL); Platelet Morphology Comment NORMAL; RBC Morphology NORMAL; Toxic Vacuolation PRESENT
[2022-06-30] MEDS: Ketorolac Tromethamine 15 MG/ML VIAL IVPUSH (10:09)
[2022-06-30] MEDS: 0.9 % Sodium Chloride 1,000 ML 999 ML IV (10:09)
[2022-06-30] MEDS: ondansetron HCL 4 MG/2 ML VIAL IVPUSH (10:09)
[2022-06-30] MEDS: Acetaminophen 325 MG TABLET 975 MG PO (10:09)
[2022-06-30 10:11] LABS: Lymphocytes Absolute Manual 1.4 X10*3/uL (1.2-4.9); Monocytes Absolute Manual 0.6 X10*3/uL (0.1-1.2); Neutrophils Absolute Manual 18.2 X10*3/uL (2.0-8.3); White Blood Count 20.2 X10*3/uL (4.8-10.8)
[2022-06-30 10:20] LABS: Influenza A PCR NEGATIVE (Negative); Influenza B PCR NEGATIVE (Negative); Resp Syncy Virus RNA Qual PCR NEGATIVE (Negative); SARS COV2 PCR INHOUSE NEGATIVE (Negative)
[2022-06-30 11:09] LABS: Appearance Urine Clear; Color Urine Yellow; Glucose Urine UA Negative (Negative); Leukocyte Esterase Urine Trace (Negative); Nitrite Urine Negative (Negative); PH 5.5 (5.0-9.0); UMIC TRIGGER UACC YES; Urine Blood Trace (Negative); Urine Ketones Negative (Negative); Urine Protein 30 (1+) mg/dL (Neg-Trace)
[2022-06-30 11:10] LABS: UPreg QC Valid YES; Urine Pregnancy NEGATIVE (NEGATIVE)
[2022-06-30 11:14] LABS: Bacteria Urine None Seen (None Seen); Hyaline Casts Urine 0-2 /LPF (0-2); UACC Culture Trigger YES
[2022-06-30 11:41] LABS: IDNOW Serial# 6674DD1D; Strep A Nucleic Acid Positive (Negative)
[2022-06-30] MEDS: Penicillin V Potassium 250 MG TABLET 500 MG PO (11:57)
[2022-06-30 12:46] LABS: Adenovirus PCR Not Detected (Not Detect.); Bordetella parapertussis PCR Not Detected (Not Detect.); Bordetella pertussis PCR Not Detected (Not Detect.); Chlamydia pneumoniae PCR Not Detected (Not Detect.); Coronavirus 229E PCR Not Detected (Not Detect.); Coronavirus HKU1 PCR Not Detected (Not Detect.); Coronavirus NL63 PCR Not Detected (Not Detect.); Coronavirus OC43 PCR Not Detected (Not Detect.); Human metapneumovirus PCR Not Detected (Not Detect.); Influenza A PCR Not Detected (Not Detect.); Influenza B PCR Not Detected (Not Detect.); SARS-CoV-2 PCR Not Detected (Not Detect.)
[2022-06-30 12:47] LABS: Mycoplasma pneumoniae PCR Not Detected (Not Detect.); Parainfluenza 1 PCR Not Detected (Not Detect.); Parainfluenza 2 PCR Not Detected (Not Detect.); Parainfluenza 3 PCR Not Detected (Not Detect.); Parainfluenza 4 PCR Not Detected (Not Detect.); RSV PCR Not Detected (Not Detect.); Rhino/Enterovirus PCR Not Detected (Not Detect.)
== END 2022-06-30 12:01 | disposition home or self-care (01) ==
PROVIDERS: Physician Assistant Medical; Emergency Provider Emergency Medicine; PCP Internal Medicine
DX: J02.0 Streptococcal pharyngitis (principal); Z20.822 Contact with and (suspected) exposure to COVID-19; Z20.828 Contact with and (suspected) exposure to other viral communicable diseases; E78.5 Hyperlipidemia, unspecified; Z79.891 Long term (current) use of opiate analgesic; F17.210 Nicotine dependence, cigarettes, uncomplicated
CPT/HCPCS: 0241U; 36415; 80048; 80076; 81001; 81025; 83690; 85007; 85027; 87086; 87633; 87651; 96361; 96374; 96375; 99284; J1885; J2405

== ENCOUNTER 2022-07-30 13:36 | Outpatient (REF) | payer BC, SELFPAY ==
--- NOTE | ~2022-07-30 | US_ITS ---
EXAMINATION: US RETROPERITONEAL LIMITED (RENAL ONLY) CLINICAL INFORMATION: Hematuria, unspecified. COMPARISON: X-ray [facility] 05/04/2022. TECHNIQUE: Real-time imaging of the kidneys. FINDINGS: RIGHT KIDNEY: 10.7 x 6.0 x 5.2 cm (SAG x AP x TRV). The kidney is normal in size, contour, and echogenicity. Renal cortical thickness is normal. No calculi or focal parenchymal lesions. No hydronephrosis. LEFT KIDNEY: 10.8 x 6.0 x 5.3 cm (SAG x AP x TRV). The kidney is normal in size, contour, and echogenicity. Renal cortical thickness is normal. No renal calculi or focal parenchymal lesions. Moderate hydronephrosis. OTHER FINDINGS: Bilateral ureteral jets were demonstrated. US/US renal BI IMPRESSION: Moderate left hydronephrosis of uncertain etiology. If an obstructive uropathy is recommended, consider further evaluation with a CT abdomen/pelvis.
== END 2022-07-30 13:37 | disposition home or self-care (01) ==
LOC: HO.US 13:36
PROVIDERS: Visit Provider Internal Medicine
DX: R31.9 Hematuria, unspecified (principal)
CPT/HCPCS: 76775

== ENCOUNTER → 2022-08-12 10:28 | Outpatient (BNVA) | payer BC, SELFPAY | PROVIDERS: PCP Internal Medicine; Visit Provider Urology | DX: Z13.89 Encounter for screening for other disorder (principal) ==

== ENCOUNTER 2023-04-14 09:42 | Outpatient (AMB) | payer BC, SELFPAY ==
[2023-04-14 09:44] VITALS: BP 120/82; PULSE 102; O2SAT 98; BMI 34.6
--- NOTE | 2023-04-14 09:44 | A.OFFPC_ITS ---
Vital Signs 04/14/23 09:44 Height 5 ft 2 in Weight 189 lb BMI 34.6 BP 120/82 Blood Pressure Location Lt brachial Position Sitting Pulse 102 H Pulse Source Pulse Oximeter Pulse Oximetry (%) 98 Oxygen Delivery Method Room Air Intake Visit Reasons: fibromyalgia Intake Note: Patient here for a follow up Fibromyalgia [employer] Aid Required: No Accompanied by: Self / Same As Patient Allergies apple [Apple] Allergy (Severe, Verified 04/14/23 09:56) ANGIOEDEMA nut - unspecified [nut] Allergy (Severe, Verified 04/14/23 09:56) SWELLING pollen extracts [POLLEN] Allergy (Intermediate, Verified 04/14/23 09:56) ITCHY EYES, SNEEZING sertraline Allergy (Intermediate, Verified 04/14/23 09:56) anxiety suvorexant [Belsomra] Allergy (Intermediate, Verified 04/14/23 09:56) hallucinations Medication List - Last Reconciled 04/14/23 by Rocio Barrios MD amitriptyline 30 mg (3 x 10 mg) PO DAILY 30 days atorvastatin 10 mg PO BEDTIME 90 days emccgacwav-srifygrmyojfc-tzyr 50-300-40 mg 1 cap PO Q8H PRN 30 days cholecalciferol (vitamin D3) 25 mcg PO DAILY 90 days clonazepam 1 mg PO BID PRN 30 days epinephrine (EpiPen) 0.3 mg (0.3 mL) IM Q4H PRN 30 days fentanyl 25 mcg/hr 1 patch transdermal Q48H 30 days guaifenesin (Adult Tussin Chest Congestion) 200 mg (10 mL) PO Q4H PRN 5 days oxycodone-acetaminophen 5-325 mg 1 tab PO QID PRN 30 days penicillin V potassium 500 mg PO BID 10 days pregabalin 150 mg PO DAILY 30 days ropinirole 0.5 mg PO BEDTIME 90 days topiramate 50 mg PO DAILY 90 days Tobacco use date assessed: 10/07/22 Dental Screening Dental Screen Date: 04/14/23 Did you have a dental visit in the last 12 months?: Yes Did you have a dental problem in the last 6 months where you did not have access to dental care?: No Was dental information given to patient?: Patient has dentist HPI HPI Comments History of Present Illness Details This is a 48-year-old female with fibromyalgia, migraines, mild major depression and mixed hyperlipidemia that comes today for follow-up on her conditions. Fibromyalgia has been stable with Lyrica. Migraines well control with Topamax for migraines prophylaxis. Depression stable with amitriptyline. On statins for mixed hyperlipidemia and reports no side effects. No chest pain or shortness of breath. 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 Polyarticular arthritis Scoliosis of thoracolumbar spine Tachycardia Mixed hyperlipidemia Bilateral sacroiliitis Transaminitis Palpitations Hypovitaminosis D Obesity Migraines Fibromyalgia Dizziness Surgical History History of deviated nasal septum History of removal of ovarian cyst History of hysterectomy History of cholecystectomy History of tubal ligation History of tonsillectomy Family History Father Anxiety Depression Mother Breast cancer Maternal Grandmother Myocardial infarction Maternal Aunt Breast cancer Family/Other FH: mental illness Social History Housing: House Alcohol intake: never Patient Tobacco Use Status: Current everyday Tobacco user Tobacco use type: Cigarette Cigarettes Per Day: 6 Years Smoked: 20 +/- e-Cigarette/Vaping Use: Never Used Second Hand Smoke Exposure: Yes service: No Current occupational status: employed 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 Tim Reynolds, Gloria Rider, Akbar Lagos and colleagues, with an educational hiram from [employer]. Review of Systems Const All systems reviewed & are unremarkable except as noted in HPI and below Eyes Reports no additional complaints, Denies change in vision and Denies other visual disturbances Card Denies chest pain at rest, Denies chest pain with activity, Denies edema, Denies irregular heart rhythm, Denies claudication, Denies dyspnea, Denies dyspnea on exertion, Denies orthopnea, Denies paroxysmal nocturnal dyspnea and Denies slow heart rate Resp Denies cough, Denies dyspnea and Denies dyspnea on exertion GI Denies abdominal pain, Denies change in bowel habits, Denies excessive flatus, Denies nausea and Denies vomiting Denies urinary incontinence, Denies urinary hesitancy and Denies urinary urgency Musc Denies abnormal gait, Denies atrophy, Denies deformity and Denies limited range of motion Skin/Breast Denies bleeding lesions, Denies changing lesions and Denies rash Neuro Denies abnormal gait and Denies lack of coordination Physical exam (Primary Care) Vital Signs: Last Vital Signs Pulse 102 H 04/14/23 09:44 BP 120/82 04/14/23 09:44 Pulse Ox 98 04/14/23 09:44 Oxygen Delivery Method Room Air 04/14/23 09:44 BMI result Body Mass Index 34.6 Tobacco/Smoking Status: Tobacco use Status Tobacco use date assessed 10/07/22 04/14/23 09:47 Patient Tobacco Use Status Current everyday Tobacco 04/14/23 09:47 Tobacco use type Cigarette 04/14/23 09:47 e-Cigarette/Vaping Use Never Used 04/14/23 09:47 Thrive Assessment: Date of Thrive Assessment Date Thrive assessed 10/07/22 04/14/23 09:47 Eyes General: appearance normal, both eyes and all related structures Eyelids: Yes eyelids normal Conjunctivae: conjunctivae normal Neck Neck: Yes normal visual inspection and Yes supple Resp Effort & Inspection: normal respiratory effort Auscultation: clear to auscultation bilaterally Cardio Jugular venous distension: no JVD Rate: regular rate Rhythm: regular rhythm Heart sounds: S1 normal heart sound present and S2 normal heart sound present Extrem General: Yes full ROM Office Procedures Flu Questionnaire Does the patient have a severe egg allergy?: No Immunizations flu vacc [id number] 6mos up(PF) 60 mcg(15 mcgx4)/0.5 mL IM syringe Performing Provider: Rocio Barrios MD [facility] Documented (not given) by: LOBITO Stafford on 04/14/23 09:52 Reason Not Given: Patient Refused Assessment and Plan Assessment & Plan (1) Fibromyalgia: Code(s): M79.7 - Fibromyalgia Plan: Continue Lyrica. (2) Migraines: Code(s): G43.909 - Migraine, unspecified, not intractable, without status migrainosus Plan: Continue Topamax for migraine prophylaxis. (3) Mixed hyperlipidemia: Code(s): E78.2 - Mixed hyperlipidemia Plan: Continue statins. (4) Mild major depression: Code(s): F32.0 - Major depressive disorder, single episode, mild Plan: Continue amitriptyline. Orders: Orders Vitamin B12 and Folate Today E53.8 - Deficiency of other specified B group vitamins Complete Blood Count Auto Diff Today D72.829 - Elevated white blood cell count, unspecified Influenza [id number] Immunization Today Z23 - Encounter for immunization Vitamin D 25-OH Total Today E55.9 - Vitamin D deficiency, unspecified Referrals BIOCHEMISTRY SPECIALIST Referral Z12.4 - Encounter for screening for malignant neoplasm of cervix Medications: Discontinued penicillin V potassium Discontinued Reason: Patient Completed Course 500 mg PO BID 10 days 20 tabs 0RF guaifenesin (Adult Tussin Chest Congestion) Discontinued Reason: Patient Completed Course 200 mg (10 mL) PO Q4H 5 days PRN 473 mL 0RF cough Coding Level of Care Code Est Pt Level 4 (28490) Diagnoses Fibromyalgia M79.7 Migraines G43.909 Mixed hyperlipidemia E78.2 Mild major depression F32.0 Time Spent (min) 23
== END 2023-04-14 10:05 | disposition home or self-care (01) ==
PROVIDERS: Visit Provider Internal Medicine
DX: M79.7 Fibromyalgia (principal); F32.0 Major depressive disorder, single episode, mild; G43.909 Migraine, unspecified, not intractable, without status migrainosus; E78.2 Mixed hyperlipidemia
CPT/HCPCS: 99214

== ENCOUNTER 2023-06-20 08:58 | Outpatient (AMB) | payer BC, SELFPAY ==
[2023-06-20 09:39] VITALS: BP 120/72; PULSE 102; TEMP 37.1; O2SAT 98; BMI 35.1
--- NOTE | 2023-06-20 09:39 | MHC.OFFWIV ---
Intake Vital Signs 06/20/23 09:39 Height 5 ft 2 in Weight 192 lb BMI 35.1 BP 120/72 Blood Pressure Location Lt brachial Position Sitting Pulse 102 H Pulse Source Pulse Oximeter Temp 98.8 F Temp Source Oral Pulse Oximetry (%) 98 Intake Visit Reasons: EST/ear ache and sore throat ([phone]) Intake Note: Patient is here for sore throat and ear aches, and they feel wet, neg. Covid test. She states it hurts to swallow. Patient Tobacco Use Status: Current everyday Tobacco user Allergies apple [Apple] Allergy (Severe, Verified 06/20/23 09:40) ANGIOEDEMA nut - unspecified [nut] Allergy (Severe, Verified 06/20/23 09:40) SWELLING pollen extracts [POLLEN] Allergy (Intermediate, Verified 06/20/23 09:40) ITCHY EYES, SNEEZING sertraline Allergy (Intermediate, Verified 06/20/23 09:40) anxiety suvorexant [Belsomra] Allergy (Intermediate, Verified 06/20/23 09:40) hallucinations Do you need a note to return to daycare/school/sports/work: Yes HPI EST/ear ache and sore throat ([phone]) HPI Details 48 year old female patient presents today with a 3 day history of sore throat and b/l ear pain. Denies known exposure to sick contacts. Denies any cough or shortness of breath. Has felt hot and cold however has not taken temp. Covid test at home was negative. [facility] Medical History Osteoarthritis of lumbar spine Chronic lower back pain JENNIFER (generalized anxiety disorder) B12 deficiency USP (current) use of opiate analgesic Polyarticular arthritis Scoliosis of thoracolumbar spine Tachycardia Mixed hyperlipidemia Bilateral sacroiliitis Transaminitis Palpitations Hypovitaminosis D Obesity Migraines Fibromyalgia Dizziness Surgical History History of deviated nasal septum History of removal of ovarian cyst History of hysterectomy History of cholecystectomy History of tubal ligation History of tonsillectomy Family History Father Anxiety Depression Mother Breast cancer Maternal Grandmother Myocardial infarction Maternal Aunt Breast cancer Family/Other FH: mental illness Social History Housing: House Alcohol intake: never Patient Tobacco Use Status: Current everyday Tobacco user Tobacco use type: Cigarette Cigarettes Per Day: 6 Years Smoked: 20 +/- e-Cigarette/Vaping Use: Never Used Second Hand Smoke Exposure: Yes service: No Current occupational status: employed 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 Current occupational exposures/hazards: No Cognitive needs: No Hearing needs: No Vision needs: No Review of Systems Const All systems reviewed & are unremarkable except as noted in HPI and below Physical Exam Vital Signs: Last Vital Signs Temp 98.8 F 06/20/23 09:39 Pulse 102 H 06/20/23 09:39 BP 120/72 06/20/23 09:39 Pulse Ox 98 06/20/23 09:39 BMI result Body Mass Index 35.1 Const General: cooperative and no acute distress HEENT Head: Yes normal to inspection Ears: hearing grossly normal bilaterally, external ears normal and TM abnormal (bilateral erythema, purulent effusion) General nose exam: Normal external nose present and Normal nasal mucous membranes and turbinates present Mouth: Normal oral and palatal mucosa present and moist mucous membranes Throat: Yes posterior oropharynx abnormal (erythema) and Yes tonsils absent Neck Neck: Yes no lymphadenopathy Resp Effort & Inspection: normal respiratory effort and able to speak in complete sentences Auscultation: clear to auscultation bilaterally Cardio Jugular venous distension: no JVD Palpation: normal PMI Rate: regular rate Rhythm: regular rhythm Skin General skin exam: no rashes or lesions noted Extrem General: Yes capillary refill normal and Yes no clubbing, cyanosis or edema Psych Appearance: grossly normal Mental Status: mental status grossly normal Speech and movement: Normal speech and movement present Results AMB Rapid Strep AMB Rapid Strep Negative Last Edit by Lindy Cummins CMA on 06/20/23 09:53 Results Reviewed Results Reviewed: Laboratory Last Values Strep Scn Rapid Clinic Negative 06/20/23 09:49 Assessment & Plan Assessment & Plan (1) Bilateral otitis media with effusion: Code(s): H65.93 - Unspecified nonsuppurative otitis media, bilateral Plan: Will start on augmentin 7 day. Reviewed use and possible s/e of this. Rapid strep negative. Advised otc cold/flu products for any ongoing symptom management. Advised increased hydration, vitamin C intake. Work note provided. If she does not improve with treatment she should return for further evaluation. Orders: Orders AMB Rapid Strep Screen Today J02.9 - Acute pharyngitis, unspecified Medications: New amoxicillin-pot clavulanate 875-125 mg 1 tab PO BID 7 days 14 tabs 0RF H65.93 - Unspecified nonsuppurative otitis media, bilateral Coding Level of Care Code Est Pt Level 3 (96667) Diagnoses Bilateral otitis media with effusion H65.93
== END 2023-06-20 10:18 | disposition home or self-care (01) ==
PROVIDERS: PCP Internal Medicine; Visit Provider Nurse Practitioner Family
DX: J02.9 Acute pharyngitis, unspecified (principal); H65.93 Unspecified nonsuppurative otitis media, bilateral
CPT/HCPCS: 87880; 99213

== ENCOUNTER 2023-09-13 14:54 | Outpatient (AMB) | payer BC, SELFPAY ==
--- NOTE | 2023-09-13 15:10 | MHC.OFFVIS ---
Intake Vital Signs 09/13/23 15:11 Height 5 ft 2 in Weight 193 lb BMI 35.3 Intake Visit Reasons: New patient Annual Specialty Foods Cook Required: No Information Interpreted: clinical only Consumer Loan Underwriter: Consumer Loan Underwriter Present Allergies apple [Apple] Allergy (Severe, Verified 09/13/23 15:12) ANGIOEDEMA nut - unspecified [nut] Allergy (Severe, Verified 09/13/23 15:12) SWELLING pollen extracts [POLLEN] Allergy (Intermediate, Verified 09/13/23 15:12) ITCHY EYES, SNEEZING sertraline Allergy (Intermediate, Verified 09/13/23 15:12) anxiety suvorexant [Belsomra] Allergy (Intermediate, Verified 09/13/23 15:12) hallucinations Medication List - Last Reconciled 09/13/23 by Arlene Gallego CNM amitriptyline 30 mg (3 x 10 mg) PO DAILY 30 days atorvastatin 10 mg PO BEDTIME 90 days juofndbdfe-jpwmmhwtfbdmr-ynxw 50-300-40 mg 1 cap PO Q8H PRN 30 days cholecalciferol (vitamin D3) 25 mcg PO DAILY 90 days clonazepam 1 mg PO BID PRN 30 days epinephrine (EpiPen) 0.3 mg (0.3 mL) IM Q4H PRN 30 days fentanyl 25 mcg/hr 1 patch transdermal Q48H 30 days oxycodone-acetaminophen 5-325 mg 1 tab PO QID PRN 30 days pregabalin 150 mg PO DAILY 30 days ropinirole 0.5 mg PO BEDTIME 90 days topiramate 50 mg PO DAILY 90 days Is last menstrual period known: No Post menopausal: Yes (histeroctamy) HPI New patient Annual HPI Details 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 She has not been here in many years. She has not had a Pap smear in many years she has a complicated medical history involving fibromyalgia and scoliosis but also she had a partial hysterectomy some years ago and then there was a concern about cancer so she was transferred from [facility] to [facility] and had the total hysterectomy including oophorectomy she said she was placed on (HRT) for a while then the doctor took her off of it cold turkey. She just recently had sex for the 1st time in a long time and it hurts so bad she had to stop. She has been concerned about these little white bumps in her labia. She has had hot flashes for years she she feels she is mostly through it now. Her doctors Dr. Ozuna. She has to get fasting labs before her visit with her coming up next month. She tells this CNM that I delivered 1 of her children either 27 or 29 years ago 1 baby was delivered at [place] and 1 at [facility]. [facility] Medical History (Updated 09/13/23 @ 16:41 by Arlene Gallego CNM) Osteoarthritis of lumbar spine Chronic lower back pain JENNIFER (generalized anxiety disorder) B12 deficiency correction (current) use of opiate analgesic Polyarticular arthritis Scoliosis of thoracolumbar spine Tachycardia Mixed hyperlipidemia Bilateral sacroiliitis Transaminitis Palpitations Hypovitaminosis D Obesity Migraines Fibromyalgia Dizziness Surgical History (Updated 09/13/23 @ 16:41 by Arlene Gallego CNM) History of deviated nasal septum History of removal of ovarian cyst History of hysterectomy History of cholecystectomy History of tubal ligation History of tonsillectomy Family History Father Anxiety Depression Mother Breast cancer Maternal Grandmother Myocardial infarction Maternal Aunt Breast cancer Family/Other FH: mental illness Social History Housing: House Alcohol intake: never Patient Tobacco Use Status: Current everyday Tobacco user Tobacco use type: Cigarette Cigarettes Per Day: 6 Years Smoked: 20 +/- e-Cigarette/Vaping Use: Never Used Second Hand Smoke Exposure: Yes service: No Current occupational status: employed 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 Current occupational exposures/hazards: No Cognitive needs: No Hearing needs: No Vision needs: No Female Reproductive History Menstrual Age of Menarche: 10 Duration of menses: 3-5 days control method: permanent sterilization Total pregnancies: 4 Full term: 2 History of abnormal pap smear: No (previous pap unsure date ?) Physical Exam Vital Signs: BMI result Body Mass Index 35.3 Const General: healthy appearing, comfortable, no acute distress, well developed and alert Nutritional Appearance: average body habitus Orientation/consciousness: patient oriented x3 Limitations: no limitations HEENT Head: Yes normocephalic Neck Neck: Yes normal visual inspection Thyroid: Thyroid normal Chest Chest palpation & inspection: normal inspection of the chest Breast/axilla inspection: normal inspection of the breasts and normal inspection of the axillae Breast/axilla palpation: normal palpation of the breasts and normal palpation of the axillae Resp Effort & Inspection: normal respiratory effort GI Inspection: Yes normal to inspection, No Abdominal wall edema and No distended Palpation (GI): Soft to palpation and nontender Other: Externally there is sums scars from obstetrical lacerations on labia. There are some mild not inflamed not engorged varicose veins and there are some tiny white firm nodules consistent with collections of sebum or other mucoid secretions in the mucosal epidermis. They are not inflamed either Speculum exam within normal limits she does not have a cervix or uterus or ovaries they are surgically absent vaginal cuff Pap smear done and cultures taken for gonorrhea chlamydia trichomoniasis Gardnerella and Janis the mucosa is slightly dry with the whitish homogeneous discharge will await testing to see if there is anything to treat. Patient did have good muscle tone with bimanual there was no sense of organ descensus or dropping or lowering. Patient had said she wondered if that was what was going on but it was not clearly evident on exam today. General: Yes bladder normal to palpation External Female Exam: normal external appearance and normal appearance of the urethra Speculum Exam - Vagina: normal appearance of the vagina, normal palpation and normal vaginal discharge Bimanual exam- vagina & uterus: normal bimanual exam, normal palpation, bladder normal to palpation and consistency normal Bimanual Exam- Adnexa, other: normal adnexae, no masses, normal and No adnexal tenderness Neuro General: patient oriented x3 Assessment & Plan Assessment & Plan (1) Screening for cervical cancer: Comment: Vaginal cuff Pap smear done.(patient states she had a partial than a total hysterectomy complete with oophorectomy the 2nd time) Code(s): Z12.4 - Encounter for screening for malignant neoplasm of cervix (2) Fibromyalgia: Code(s): M79.7 - Fibromyalgia (3) History of hysterectomy: Comment: 11/2015 due to leiomyoma; patient states she later had a total hysterectomy complete with oophorectomy at [facility] because there was a concern for cancer which was not found. She was given hormone replacement therapy for a while but then it was stopped abruptly. Code(s): Z90.710 - Acquired absence of both cervix and uterus (4) Breast cancer screening: Code(s): Z12.39 - Encounter for other screening for malignant neoplasm of breast (5) Artificial menopause: Comment: Status post total hysterectomy with removal of ovaries 4-5 years ago. Was treated with hormones for about a year then stopped. Records to be obtained. Code(s): N95.8 - Other specified menopausal and perimenopausal disorders Plan -----Discussed in this visit the following: healthy balanced diet, regular and consistent exercise, getting recommended health screens, doing the best she can for her particular health concerns, kegel exercises, pap smear screening and followup recommendations, mammography screening and SBE, normal changes in cycles in her life stage--- . I did check her muscle tone during the exam because she had a sensation of things being lowered but there was knows sense of organ descensus she does not have her uterus. She had good tone with Kegel -discussed her previous health challenges she is doing her best to stay active and is trying to become more active and this is all to the good. -reviewed with her with the mirror the landscape of her vulva and her concerns and reviewed what is essentially normal anatomy and probably not pathological in any way. Reviewed the normal common experience of dyspareunia and vaginal dryness after menopause and its universal quality discussed water-based lubricants. If she desires to pursue hormone replacement therapy of any sort I recommend she see Dr. Mtz I am also recommending that she sign for records from [facility] so we can have the records of what they did and recommended at the time. -I am ordering a mammogram for her as well. I offered her testing for STDs blood work such as HIV hep B hep C syphilis and the other testing was done vaginally she may get these blood test done when she gets her fasting labs for Dr. Ozuna. Orders: Orders Pap Smear Today Z01.419 - Encounter for gynecological examination (general) (routine) without abnormal findings CT NG by PCR Today Z01.419 - Encounter for gynecological examination (general) (routine) without abnormal findings, Z12.31 - Encounter for screening mammogram for malignant neoplasm of breast, Z12.4 - Encounter for screening for malignant neoplasm of cervix Bacterial Vaginosis Panel Today Z12.31 - Encounter for screening mammogram for malignant neoplasm of breast, Z12.4 - Encounter for screening for malignant neoplasm of cervix, Z20.2 - Contact with and (suspected) exposure to infections with a predominantly sexual mode of transmission MM tomosynthesis screening BI Today Z12.31 - Encounter for screening mammogram for malignant neoplasm of breast, Z12.4 - Encounter for screening for malignant neoplasm of cervix Coding Level of Care Code New Pt Prev Care 40-64y(52473) Diagnoses Screening for cervical cancer Z12.4 Fibromyalgia M79.7 History of hysterectomy Z90.710 Breast cancer screening Z12.39 Artificial menopause N95.8
[2023-09-13 15:11] VITALS: BMI 35.3
== END 2023-09-13 16:12 | disposition home or self-care (01) ==
LOC: HO.HWS 14:54
PROVIDERS: PCP Internal Medicine; Visit Provider Advanced Practice Midwife
DX: Z01.419 Encounter for gynecological examination (general) (routine) without abnormal findings (principal); N95.8 Other specified menopausal and perimenopausal disorders; M79.7 Fibromyalgia; Z90.710 Acquired absence of both cervix and uterus
CPT/HCPCS: 99386

== ENCOUNTER 2023-09-13 14:54 | Outpatient (REF) | payer BC, SELFPAY ==
[2023-09-14 02:38] LABS: CT PCR NOT DETECTED (Not Detect.); NG PCR NOT DETECTED (Not Detect.)
[2023-09-14 13:11] LABS: BV Int Neg Control Negative (Negative); BV Int Pos Control Positive (Positive)
[2023-09-20 04:18] LABS: HPV mRNA E6/E7 rflx Not Detected (Not Detected)
== END 2023-09-13 14:55 | disposition home or self-care (01) ==
LOC: HO.LAB 14:54
PROVIDERS: PCP Internal Medicine; Visit Provider Advanced Practice Midwife
DX: Z01.419 Encounter for gynecological examination (general) (routine) without abnormal findings (principal); Z11.51 Encounter for screening for human papillomavirus (HPV); Z20.2 Contact with and (suspected) exposure to infections with a predominantly sexual mode of transmission; M79.7 Fibromyalgia; N95.8 Other specified menopausal and perimenopausal disorders; Z90.710 Acquired absence of both cervix and uterus
CPT/HCPCS: 0353U; 87480; 87510; 87624; 87660; 88142

== ENCOUNTER 2023-10-25 16:13 | Outpatient (AMB) | payer BC, SELFPAY ==
[2023-10-25 16:15] VITALS: BP 130/74; PULSE 120; O2SAT 98; BMI 35.3
--- NOTE | 2023-10-25 16:15 | MHC.OFFWIV ---
Intake Vital Signs 10/25/23 16:15 Height 5 ft 2 in Weight 193 lb BMI 35.3 BP 130/74 Blood Pressure Location Rt brachial Position Sitting Pulse 120 H Pulse Source Pulse Oximeter Pulse Oximetry (%) 98 Oxygen Delivery Method Room Air Intake Visit Reasons: EP sore throat , ear pain , back pain Intake Note: pt is here for sore throat, ear pain, back pain Patient Tobacco Use Status: Current everyday Tobacco user Allergies apple [Apple] Allergy (Severe, Verified 10/25/23 16:22) ANGIOEDEMA nut - unspecified [nut] Allergy (Severe, Verified 10/25/23 16:22) SWELLING pollen extracts [POLLEN] Allergy (Intermediate, Verified 10/25/23 16:22) ITCHY EYES, SNEEZING sertraline Allergy (Intermediate, Verified 10/25/23 16:22) anxiety suvorexant [Belsomra] Allergy (Intermediate, Verified 10/25/23 16:22) hallucinations Do you need a note to return to daycare/school/sports/work: No HPI EP sore throat , ear pain , back pain HPI Details Patient presents for a sick visit. Reporting symptoms of sinus congestion, sore throat and difficulty swallowing. Low-grade fever. No family member is sick. No recent travel. Patient reports symptoms of malaise and fatigue. 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 Polyarticular arthritis Scoliosis of thoracolumbar spine Tachycardia Mixed hyperlipidemia Bilateral sacroiliitis Transaminitis Palpitations Hypovitaminosis D Obesity Migraines Fibromyalgia Dizziness Surgical History (Updated 09/13/23 @ 16:41 by Arlene Gallego CNM) History of deviated nasal septum History of removal of ovarian cyst History of hysterectomy History of cholecystectomy History of tubal ligation History of tonsillectomy Family History Father Anxiety Depression Mother Breast cancer Maternal Grandmother Myocardial infarction Maternal Aunt Breast cancer Family/Other FH: mental illness Social History Housing: House Alcohol intake: never Patient Tobacco Use Status: Current everyday Tobacco user Tobacco use type: Cigarette Cigarettes Per Day: 6 Years Smoked: 20 +/- e-Cigarette/Vaping Use: Never Used Second Hand Smoke Exposure: Yes service: No Current occupational status: employed 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 Current occupational exposures/hazards: No Cognitive needs: No Hearing needs: No Vision needs: No Female Reproductive History Menstrual Age of Menarche: 10 Physical Exam Vital Signs: Last Vital Signs Pulse 120 H 10/25/23 16:15 BP 130/74 10/25/23 16:15 Pulse Ox 98 10/25/23 16:15 Oxygen Delivery Method Room Air 10/25/23 16:15 BMI result Body Mass Index 35.3 Const General: cooperative and healthy appearing Nutritional Appearance: well nourished Orientation/consciousness: patient oriented x3 Limitations: no limitations HEENT Head: Yes normal to inspection Eyes General: appearance normal, both eyes and all related structures Neck Neck: Yes normal visual inspection Chest Chest palpation & inspection: normal palpation of entire chest wall Resp Effort & Inspection: normal respiratory effort Neuro General: patient oriented x3 Assessment & Plan Assessment & Plan (1) Upper respiratory tract infection: Code(s): J06.9 - Acute upper respiratory infection, unspecified Plan: Antibiotics ordered. Increase fluid intake. Tylenol for aches and pains. If symptoms worsen, follow-up here for a recheck. Medications: New azithromycin take 500 mg today (day 1), then 250 mg for 4 days (days 2-5) PO 6 tabs 0RF azithromycin take 500 mg today (day 1), then 250 mg for 4 days (days 2-5) PO 6 tabs 0RF Coding Level of Care Code Est Pt Level 3 (00305) Diagnoses Upper respiratory tract infection J06.9
== END 2023-10-25 16:35 | disposition home or self-care (01) ==
PROVIDERS: PCP Internal Medicine; Visit Provider Internal Medicine
DX: J06.9 Acute upper respiratory infection, unspecified (principal)
CPT/HCPCS: 99213

== ENCOUNTER 2023-11-09 08:53 | Outpatient (REF) | payer BC, SELFPAY ==
[2023-11-09 09:16] LABS: MANUAL DIFF FLAG NO
[2023-11-09 09:41] LABS: Basophils Absolute Auto 0.1 X10*3/uL (0.0-0.2); Basophils Percent Auto 0.5 % (0-2); Eosinophils Absolute Auto 0.2 X10*3/uL (0.0-0.4); Eosinophils Percent Auto 1.8 % (0-4); Hematocrit 38.4 % (37.0-47.0); Imm Gran Abs Auto 0.03 X10*3/uL (0.00-0.03); Imm Gran Pct Auto 0.3 % (0.0-0.4); Lymphocytes Absolute Auto 2.3 X10*3/uL (1.2-4.9); Lymphocytes Percent Auto 25.7 % (20-40); Mean Corpuscular HGB Conc 33.9 g/dl (31.0-35.0); Mean Corpuscular Hemoglobin 31.3 pg (27.0-33.0); Mean Corpuscular Volume 92.3 fL (80.0-98.0); Mean Platelet Volume 9.7 fL (9.4-12.3); Monocytes Absolute Auto 0.5 X10*3/uL (0.1-1.2); Monocytes Percent Auto 5.5 % (2-11); Neutrophils Percent Auto 66.2 % (45-73); Platelet Count 347 X10*3/uL (160-400); Red Blood Count 4.16 X10*6/uL (4.20-5.50); Red Cell Distribution Width 13.5 % (11.0-16.0); White Blood Count 9.1 X10*3/uL (4.8-10.8)
[2023-11-09 10:53] LABS: Alanine Aminotransferase 19 U/L (0-31); Albumin Level 4.2 g/dL (3.5-5.0); Alkaline Phosphatase 74 U/L (39-117); Anion Gap 12 (12-20); Aspartate Amino Transferase 18 U/L (5-31); Bilirubin Total 0.5 mg/dL (0.0-1.0); Blood Urea Nitrogen 8 mg/dL (9-16); Calcium 9.2 mg/dL (8.4-10.2); Carbon Dioxide 22 mmol/L (22-29); Chloride 112 mmol/L (96-108); Cholesterol 210 mg/dL (<200); Estimated Glomerular Filt Rate > 60; Glucose Fasting 98 mg/dL (60-99); HDL Cholesterol 52 mg/dL (>40); LDL Cholesterol Calculated 105 mg/dL (<100); Potassium 3.9 mmol/L (3.3-5.1); Sodium 142 mmol/L (135-145); Total Protein 7.1 g/dL (6.5-8.0); Triglycerides 265 mg/dL (<150)
[2023-11-09 10:59] LABS: Vitamin D 25-OH Total 22.4 ng/mL (>30)
[2023-11-09 11:12] LABS: Folate 7.4 ng/mL (> or = 4.0); Vitamin B12 272 pg/mL (200-900)
== END 2023-11-09 08:54 | disposition home or self-care (01) ==
LOC: HO.LAB 08:53
PROVIDERS: PCP Internal Medicine; Visit Provider Internal Medicine
DX: E53.8 Deficiency of other specified B group vitamins (principal); D72.829 Elevated white blood cell count, unspecified; E55.9 Vitamin D deficiency, unspecified; E78.2 Mixed hyperlipidemia
CPT/HCPCS: 36415; 80053; 80061; 82306; 82607; 82746; 85025

== ENCOUNTER 2023-11-10 15:08 | Outpatient (AMB) | payer BC, SELFPAY ==
[2023-11-10 15:19] VITALS: BP 120/72; BMI 35.8
--- NOTE | 2023-11-10 15:19 | MHC.PC.OV ---
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[employer] Department Required: No Accompanied by: Self / Same As Patient Allergies apple [Apple] Allergy (Severe, Verified 11/10/23 15:42) ANGIOEDEMA nut - unspecified [nut] Allergy (Severe, Verified 11/10/23 15:42) SWELLING pollen extracts [POLLEN] Allergy (Intermediate, Verified 11/10/23 15:42) ITCHY EYES, SNEEZING sertraline Allergy (Intermediate, Verified 11/10/23 15:42) anxiety suvorexant [Belsomra] Allergy (Intermediate, Verified 11/10/23 15:42) hallucinations Medication List - Last Reconciled 11/10/23 by Rocio Barrios MD amitriptyline 30 mg (3 x 10 mg) PO DAILY 30 days atorvastatin 10 mg PO BEDTIME 90 days kjxlyrjmkl-uaywyqpxivacc-sodi 50-300-40 mg 1 cap PO Q8H PRN 30 days cholecalciferol (vitamin D3) 25 mcg PO DAILY 90 days clonazepam 1 mg PO BID PRN 30 days epinephrine (EpiPen) 0.3 mg (0.3 mL) IM Q4H PRN 30 days fentanyl 25 mcg/hr 1 patch transdermal Q48H 30 days oxycodone-acetaminophen 5-325 mg 1 tab PO QID PRN 30 days pregabalin 150 mg PO DAILY 30 days ropinirole 0.5 mg PO BEDTIME 90 days topiramate 50 mg PO DAILY 90 days Tobacco use date assessed: 11/10/23 Dental Screening Dental Screen Date: 11/10/23 Did you have a dental visit in the last 12 months?: No Did you have a dental problem in the last 6 months where you did not have access to dental care?: No Was dental information given to patient?: Patient has dentist HPI HPI Comments History of Present Illness Details This is a 48-year-old female with mild major depression that comes for her physical exam. Depression has been stable with medications and this will be follow by me in 6 months. Last Pap smear was 2023. Mammogram was over a year ago. Has never done a colonoscopy. No chest pain or shortness of breath. Labs were discussed. She has obese with a BMI of 35.8 and was advised to do diet and exercise. 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 deficiency [facility] (current) use of opiate analgesic Polyarticular arthritis Scoliosis of thoracolumbar spine Tachycardia Mixed hyperlipidemia Bilateral sacroiliitis Transaminitis Palpitations Hypovitaminosis D Obesity Migraines Fibromyalgia Dizziness Surgical History History of deviated nasal septum History of removal of ovarian cyst History of hysterectomy History of cholecystectomy History of tubal ligation History of tonsillectomy Family History Father Anxiety Depression Mother Breast cancer Maternal Grandmother Myocardial infarction Maternal Aunt Breast cancer Family/Other FH: mental illness Social History Housing: House Alcohol intake: never Patient Tobacco Use Status: Current everyday Tobacco user Tobacco use type: Cigarette Cigarettes Per Day: 6 Years Smoked: 20 +/- e-Cigarette/Vaping Use: Never Used Second Hand Smoke Exposure: Yes service: No Current occupational status: employed 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 1. Little interest or pleasure in doing things: not at all 2. Feeling down, depressed, or hopeless: several days 3. Trouble falling or staying asleep, or sleeping too much: not at all 4. Feeling tired or having little energy: not at all 5. Poor appetite or overeating: several days 6. Feeling bad about yourself - or that you are a failure or have let yourself or your family down: not at all 7. Trouble concentrating on things, such as reading the newspaper or watching television: not at all 8. Moving or speaking so slowly that other people could have noticed. Or the opposite - being so fidgety or restless that you have been moving around a lot more than usual: not at all 9. Thoughts that you would be better off or of hurting yourself in some way: not at all Total score: 2 Depression Screening Interpretation: Positive Depression Screening Follow-up: Existing condition, In treatment and Follow-up Visit Requested Depression Screening Done: Yes 70333 - PHQ-9 Billing: Yes Source: Developed by Drs. Tim Reynolds, Gloria Rider, Akbar Lagos and colleagues, with an educational hiram from [employer]. Thrive Questionnaire Date Thrive assessed: 11/10/23 I am a: Patient What is your living situation today?: I have a steady place to live Within the past 12 months, did the food you bought not last and you didn't have the money to get more?: Never true Within the past 12 months, did you worry whether your food would run out before you got money to buy more?: Never true Do you have trouble paying for medicines?: No Do you have trouble getting transportation to medical appointments?: No Do you have trouble paying your heating and electricity bill?: No Do you have trouble taking care of your child, family member or friend?: No Do you have trouble with day-to-day activities such as bathing, preparing meals, shopping, managing finances, etc.?: No Are you currently unemployed and looking for a job?: No Are you interested in more education?: No Please select the resources that you would like help with: None Currently or been in a relationship where the following occur: no concerns reported THRIVE Score: 0 AUDIT C Alcohol Use Questionnaire (AUDIT-C) 1. How often do you have a drink containing alcohol?: Never Total Score: 0 JENNIFRE-7 AMB Questionnaire JENNIFER-7 Date JENNIFER - 7 assessed: 11/10/23 Feeling nervous, anxious, or on edge: 1 = Several days Not being able to stop or control worryin = Not at all Worrying too much about different things: 0 = Not at all Trouble relaxin = Not at all Being so restless that it is hard to sit still: 0 = Not at all Becoming easily annoyed or irritable: 0 = Not at all Feeling afraid as if something awful might happen: 0 = Not at all Total JENNIFER-7 score (0-4 normal; 5-9 mild; 10-14 moderate; 15-21 severe): 1 Source: Developed by Drs. Tim Reynolds, Gloria Rider, Akbar Lagos and colleagues, with an educational hiram from [employer]. JENNIFER-7 Assessment Billing JENNIFER-7 Assessment Tool: JENNIFER-7 Assessment 15618 Review of Systems Const All systems reviewed & are unremarkable except as noted in HPI and below Card Denies chest pain at rest, Denies chest pain with activity, Denies edema, Denies irregular heart rhythm, Denies claudication, Denies dyspnea, Denies dyspnea on exertion, Denies orthopnea, Denies paroxysmal nocturnal dyspnea and Denies slow heart rate Resp Denies cough, Denies dyspnea and Denies dyspnea on exertion GI Denies abdominal pain, Denies change in bowel habits, Denies excessive flatus, Denies nausea and Denies vomiting Denies urinary incontinence, Denies urinary hesitancy and Denies urinary urgency Neuro Denies confusion Psych Denies confusion Physical exam (Primary Care) Vital Signs: Last Vital Signs BP 120/72 11/10/23 15:19 BMI result Body Mass Index 35.8 BMI Assessment/Plan discussion: High BMI High, discussed plan: lifestyle, weight reduction, dietary and physical activity Tobacco/Smoking Status: Tobacco use Status Tobacco use date assessed 11/10/23 11/10/23 15:26 Patient Tobacco Use Status Current everyday Tobacco 11/10/23 15:26 Tobacco use type Cigarette 11/10/23 15:26 e-Cigarette/Vaping Use Never Used 11/10/23 15:26 PHQ-9: PHQ-9 Score PHQ-9: Total score 2 11/10/23 15:46 Depression Screening Interpretation: Positive Depression Screening Follow-up: Existing condition, In treatment and Follow-up Visit Requested Thrive Assessment: Date of Thrive Assessment Date Thrive assessed 11/10/23 11/10/23 15:26 Currently or been in a relationship where the following occur: no concerns reported Const General: No confusion Orientation/consciousness: patient oriented x3 and No confusion HENMT Head: Yes normal to inspection, Yes normocephalic and Yes atraumatic Ears: external ears normal Eyes General: appearance normal, both eyes and all related structures Eyelids: Yes eyelids normal Conjunctivae: conjunctivae normal Neck Neck: Yes normal visual inspection and Yes supple Resp Effort & Inspection: normal respiratory effort Auscultation: clear to auscultation bilaterally Cardio Jugular venous distension: no JVD Rate: regular rate Rhythm: regular rhythm Heart sounds: S1 normal heart sound present and S2 normal heart sound present GI Inspection: Yes normal to inspection Palpation (GI): Soft to palpation and nontender Auscultation: normal bowel sounds Skin General skin exam: no rashes or lesions noted Neuro General: patient oriented x3, no focal motor deficits and No confusion Extrem General: Yes full ROM Psych Appearance: grossly normal Assessment and Plan Assessment & Plan (1) Physical exam: Onset Date: ~09/13/23 Code(s): Z00.00 - Encounter for general adult medical examination without abnormal findings Plan: Repeat in a year. (2) Mild major depression: Code(s): F32.0 - Major depressive disorder, single episode, mild Plan: Continue amitriptyline. Orders: Orders Vitamin B12 and Folate 6 Months E53.8 - Deficiency of other specified B group vitamins Vitamin D 25-OH Total 6 Months E55.9 - Vitamin D deficiency, unspecified MM screening mammo BI Today Z12.31 - Encounter for screening mammogram for malignant neoplasm of breast Referrals Open Access Screening Colonoscopy Referral Z12.11 - Encounter for screening for malignant neoplasm of colon Medications: New omeprazole 20 mg PO DAILY 90 caps 1RF 90 days Refilled fentanyl 25 mcg/hr 1 patch transdermal Q48H 15 ea 0RF 30 days R53.83 - Other fatigue oxycodone-acetaminophen 5-325 mg 1 tab PO QID PRN 120 tabs 0RF pain 30 days Coding Level of Care Code Est Pt Prev Care 40-64y(11816) Diagnoses Physical exam Z00.00 Mild major depression F32.0 Additional Codes JENNIFER-7 Assessment Billing - JENNIFER-7 Assessment Tool: JENNIFER-7 Assessment 00784 ([id number]) Time Spent (min) 33
== END 2023-11-10 15:59 | disposition home or self-care (01) ==
PROVIDERS: PCP Internal Medicine; Visit Provider Internal Medicine
DX: Z00.00 Encounter for general adult medical examination without abnormal findings (principal); F32.0 Major depressive disorder, single episode, mild
CPT/HCPCS: 96127; 99396

== ENCOUNTER 2023-12-29 10:50 | Outpatient (REF) | payer BC, SELFPAY ==
--- NOTE | ~2023-12-29 | US_ITS ---
EXAMINATION: US PELVIS COMPLETE CLINICAL INFORMATION: Pelvic pain COMPARISON: None TECHNIQUE: Transabdominal and transvaginal imaging was performed. FINDINGS: Status post hysterectomy and bilateral salpingo-oophorectomy. No adnexal mass. There is no pelvic free fluid. US/US pelvic and transvaginal IMPRESSION: Status post hysterectomy and bilateral salpingo-oophorectomy. No adnexal mass.
== END 2023-12-29 10:51 | disposition home or self-care (01) ==
LOC: HO.US 10:50
PROVIDERS: PCP Internal Medicine; Visit Provider Internal Medicine
DX: R10.2 Pelvic and perineal pain (principal)
CPT/HCPCS: 76830; 76856

== ENCOUNTER 2024-01-26 09:48 | Emergency (ER) | payer BC, SELFPAY ==
--- NOTE | ~2024-01-26 | XR_ITS ---
EXAMINATION: XR HIP, RIGHT CLINICAL INFORMATION: Recurrent pain. COMPARISON: Most recent sacroiliac joint radiographs dated 09/21/2021. TECHNIQUE: AP view of the pelvis as well as AP and frog-leg lateral views of the right hip. FINDINGS: No acute fracture or dislocation. No joint space narrowing or marginal osteophytes. No osseous erosion. Mild enthesopathic spurring at the right greater trochanter, increased when compared to the prior radiographs. XR/XR hip RT w PEL1V IMPRESSION: Mild enthesopathic spurring at the right greater trochanter, increased when compared to the prior radiographs.
[2024-01-26 10:01] VITALS: BP 135/100; PULSE 114; RESP 18; TEMP 36.8; O2SAT 97; BMI 34.7
--- NOTE | 2024-01-26 10:06 | ECG_ITS ---
Test Reason : ARRYTHMIA Blood Pressure : / mmHG Vent. Rate : 104 BPM Atrial Rate : 104 BPM P-R Int : 144 ms QRS Dur : 092 ms QT Int : 356 ms P-R-T Axes : 011 -10 007 degrees QTc Int : 468 ms Sinus tachycardia Minimal voltage criteria for LVH, may be normal variant ( R in aVL ) Borderline ECG When compared with ECG of 13-JUN-2021 12:45, No significant change was found Referred By: Lexy Godfrey Electronically Signed By:WILMA PLATT
--- NOTE | 2024-01-26 10:42 | ED.GENADULT ---
HPI - General Adult General Chief complaint: General Medical Stated complaint: Pain L side traveling to leg Time Seen by Provider: 01/26/24 10:05 Source: patient Mode of arrival: ambulatory Limitations: no limitations History of Present Illness HPI narrative: 48 year old female with a past medical history of scoliosis, anxiety, and s/p hysterectomy presents to the emergency department for concerns for right groin pain radiating through the right anterior thigh x 1 month. She states she had a internal control specialist ultrasound last month that was 'negative'. She reports intermittent difficulty with ambulation due to pain. She denies any paresthesias, weakness, trauma, or overuse injury as she does not work a physical job. She denies any swelling, fever, erythema, ecchymosis Pertinent positives and negatives discussed in HPI Related Data Previous Rx's ?Medication ?Instructions ?Recorded clonazepam 1 mg tablet 1 mg PO BID PRN anxiety 30 days 09/07/21 #60 tabs epinephrine 0.3 mg/0.3 mL 0.3 mg (0.3 mL) IM Q4H PRN 08/11/22 injection, auto-injector (EpiPen) anaphylaxis 30 days #2 ea amitriptyline 10 mg tablet 30 mg (3 x 10 mg) PO DAILY 30 days 09/04/23 #90 tabs atorvastatin 10 mg tablet 10 mg PO BEDTIME 90 days #90 tabs 09/04/23 cholecalciferol (vitamin D3) 25 25 mcg PO DAILY 90 days #90 caps 09/04/23 mcg (1,000 unit) capsule ropinirole 0.5 mg tablet 0.5 mg PO BEDTIME 90 days #90 tabs 09/04/23 oejqtyqfgd-iwqsrioejyben-vmeshgvj 1 cap PO Q8H PRN pain 30 days #90 09/09/23 50 mg-300 mg-40 mg capsule caps topiramate 50 mg tablet 50 mg PO DAILY 90 days #90 tabs 10/25/23 omeprazole 20 mg capsule,delayed 20 mg PO DAILY 90 days #90 caps 11/10/23 release pregabalin 150 mg capsule 150 mg PO DAILY 30 days #30 caps 01/02/24 oxycodone-acetaminophen 5 mg-325 1 tab PO QID PRN pain 30 days #120 01/13/24 mg tablet tabs fentanyl 25 mcg/hr transdermal 1 patch transdermal Q48H 30 days 08/08/24 patch #15 ea cyclobenzaprine 5 mg tablet 10 mg (2 x 5 mg) PO TID PRN muscle 01/26/24 spasm #14 tabs ibuprofen 600 mg tablet 600 mg PO QID PRN pain #30 tabs 01/26/24 lidocaine 5 % topical patch 1 patch topical DAILY #15 ea 01/26/24 Allergies Allergy/AdvReac Type Severity Reaction Status Date / Time apple [Apple] Allergy Severe ANGIOEDEMA Verified 01/26/24 10:07 nut - unspecified [nut] Allergy Severe SWELLING Verified 01/26/24 10:07 pollen extracts [POLLEN] Allergy Intermediate ITCHY Verified 01/26/24 10:07 EYES, SNEEZING sertraline Allergy Intermediate anxiety Verified 01/26/24 10:07 suvorexant [Belsomra] Allergy Intermediate hallucinati Verified 01/26/24 10:07 ons Review of Systems Review of Systems: Yes all other systems are reviewed and are negative PMFSH Past Medical History Medical History Osteoarthritis of lumbar spine Chronic lower back pain JENNIFER (generalized anxiety disorder) B12 deficiency snf (current) use of opiate analgesic Polyarticular arthritis Scoliosis of thoracolumbar spine Tachycardia Mixed hyperlipidemia Bilateral sacroiliitis Transaminitis Palpitations Hypovitaminosis D Obesity Migraines Fibromyalgia Dizziness Surgical History History of deviated nasal septum History of removal of ovarian cyst History of hysterectomy History of cholecystectomy History of tubal ligation History of tonsillectomy Family History Family History Father Anxiety Depression Mother Breast cancer Maternal Grandmother Myocardial infarction Maternal Aunt Breast cancer Family/Other FH: mental illness Social History Social History Housing: House Alcohol intake: never Patient Tobacco Use Status: Current everyday Tobacco user Tobacco use type: Cigarette Cigarettes Per Day: 6 Years Smoked: 20 +/- e-Cigarette/Vaping Use: Never Used Second Hand Smoke Exposure: Yes Advance Directives: No Advance Directives Information Provided: No Do you have a plan to hurt others: No Plan service: No Current occupational status: employed 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 GENERAL APPEARANCE: A&0 x 4, generally well appearing, no acute distress HENMT: Normal to inspection, atraumatic, face symmetrical. Normal external ears, nose, and oropharynx clear. EYE: PERRLA, EOM intact, structures appear normal NECK: Supple without stiffness or restricted ROM. HEART: Normal rate and regular rhythm, normal S1/S2, no M/R/G LUNGS: LS CTA, moving air well. Able to speak in complete sentences. No crackles, wheezes, or rhonchi auscultated BACK: No CVAT, no obvious deformity EXTREMITIES: Moving all extremities without difficulty. Normal capillary refill. NEUROLOGICAL: Alert and oriented, moving all 4 extremities with equal strength. CN not formally tested but appearing grossly intact. Observed to ambulate with normal gait. Cognition normal SKIN: Warm and dry without any lesions, rash, or visible sores GI Inspection: Yes normal to inspection Palpation (GI): Soft to palpation Abdomen image: 1. Tenderness to palpation Medications Administered Discontinued Medications Generic Name Dose Route Start Last Admin Trade Name Freq PRN Reason Stop Dose Admin Sodium Chloride 1,000 mls @ 999 mls/hr 01/26/24 11:00 01/26/24 11:02 Ns IV 01/26/24 12:00 999 mls/hr .Q1H1M [facility] Administration Medical Decision Making Medical Decision Making MDM Narrative: Old records reviewed for previous imaging, lab studies, ECGs, and notes including ultrasound completed on 12/29/2023 with no signs acute findings on transvaginal ultrasound. Patient was assessed the emergency department with no acute distress or toxicity noted. Blood work completed showing no signs of since, anemia, or organ dysfunction. Urinalysis showing elevated white blood cells, however; there is a large amount of epithelial cells and sample may be contaminated. Plan to reassess after urine culture completed. X-ray of the right hip was completed, which I have independently interpreted this as showing bone spurring at the right greater trochanter. Radiologist remarks on mild enthesopathic spurring at the right greater trochanter, increased when compared to the prior radiographs. This finding is consistent with the patient's groin pain. Prescriptions for muscle relaxers, lidocaine patches, and ibuprofen since the patient preferred pharmacy for further management of pain. Patient educated to follow up with the PCP in addition to orthopedics as needed. Patient is safe for discharge at this time with plan for [id number] Tylenol and/or NSAID such as ibuprofen or naproxen for fever/discomfort with dosing as per packaging. HPI, PE, diagnostics, and plan discussed with patient and family with no unanswered questions at this time. Strict return precautions given to return to the emergency department with new, worsening, or concerning emergent symptoms. Recommended to follow-up with there primary care provider in 24-48 hours for further treatment and management. Differential Diagnosis Differential Diagnoses: The differential diagnosis associated with the presentation includes But not limited to fracture, dislocation strain, sprain, contusion, hernia, UTI, cystitis, pyelonephritis, appendicitis, colitis, diverticulitis, sepsis, malignancy Lab Data MDM Lab Attestation statement: I reviewed the patient's lab results. 01/26/24 11:00 01/26/24 11:00 Labs: Lab Results 01/26/24 01/26/24 Range/Units 11:00 11:31 WBC 8.5 (4.8-10.8) X10*3/uL RBC 4.19 L (4.20-5.50) X10*6/uL Hgb 13.3 (12.0-16.0) g/dl Hct 38.1 (37.0-47.0) % MCV 90.9 (80.0-98.0) fL MCH 31.7 (27.0-33.0) pg MCHC 34.9 (31.0-35.0) g/dl RDW 13.0 (11.0-16.0) % Plt Count 331 (160-400) X10*3/uL MPV 9.5 (9.4-12.3) fL Immature Gran % (Auto) 0.5 H (0.0-0.4) % Neut % (Auto) 64.7 (45-73) % Lymph % (Auto) 27.5 (20-40) % [place] % (Auto) 5.7 (2-11) % Eos % (Auto) 1.1 (0-4) % Baso % (Auto) 0.5 (0-2) % Lymph # (Auto) 2.3 (1.2-4.9) X10*3/uL [place] # (Auto) 0.5 (0.1-1.2) X10*3/uL Eos # (Auto) 0.1 (0.0-0.4) X10*3/uL Baso # (Auto) 0.0 (0.0-0.2) X10*3/uL Abs Immat Gran (auto) 0.04 H (0.00-0.03) X10*3/uL Absolute Neuts (auto) 5.5 (2.0-8.3) x10*3/uL Absolute Nucleated RBC 0.000 (0.0-0.012) X10*3/uL Nucleated RBC % (auto) 0.0 (0.0-0.2) /100WBC Sodium 141 (135-145) mmol/L Potassium 3.9 (3.3-5.1) mmol/L Chloride 111 H (96-108) mmol/L Carbon Dioxide 23 (22-29) mmol/L Anion Gap 11 L (12-20) BUN 12 (9-16) mg/dL Creatinine 0.70 (0.5-1.4) mg/dL Estim Creat Clear Calc 99.0 Estimated GFR > 60 Random Glucose 96 (60-115) mg/dL Calcium 9.2 (8.4-10.2) mg/dL Total Bilirubin 0.5 (0.0-1.0) mg/dL AST 17 (5-31) U/L ALT 16 (0-31) U/L Alkaline Phosphatase 79 (39-117) U/L Total Protein 7.1 (6.5-8.0) g/dL Albumin 4.3 (3.5-5.0) g/dL Urine Color Yellow Urine Appearance Cloudy Urine pH 6.0 (5.0-9.0) Ur Specific Clifford 1.025 (1.005-1.025) Urine Protein Negative (Neg-Trace) mg/dL Urine Glucose (UA) Negative (Negative) mg/dL Urine Ketones Negative (Negative) mg/dL Urine Blood Negative (Negative) Urine Nitrite Negative (Negative) Ur Leukocyte Esterase Small (1+) H (Negative) Urine RBC 0-2 (0-2) /HPF Urine WBC 11-20 H (0-5) /HPF Ur Squamous Epith Cells 11-20 (0-2) /HPF Urine Bacteria 3+ (None Seen) Hyaline Casts 3-5 (0-2) /LPF Independent Interpretation I performed an independent interpretation of an: Plain X-Ray and Ultrasound External Record Review External record reviewed: Prior outpatient labs and Prior outpatient radiology Prescription Management I considered prescription management with: Pain Medication Narcotic pain medication was considered, however; based on exam, side effects, and high-risk of addiction was deemed necessary at this time. Chronic Conditions Patient?s care impacted by: Other hyperlipidemia, anxiety, fibromyalgia Discharge Plan Discharge Clinical Impression: Strain of right hip Patient Disposition: Home, Self-Care Instructions: Muscle Strain (ED), Groin Strain (ED) Additional Instructions: Bone spurs were seen at the outer aspect of the right hip. Muscle relaxers, lidocaine patches, and Ibuprofen was sent to your preferred pharmacy. Please follow up with your PCP Prescriptions: New cyclobenzaprine 5 mg tablet 10 mg PO TID PRN (Reason: muscle spasm) Qty: 14 0RF lidocaine 5 % adhesive patch,medicated 1 patch topical DAILY Qty: 15 0RF Rx Instructions: leave on most painful area for up to 12 hrs ibuprofen 600 mg tablet 600 mg PO QID PRN (Reason: pain) Qty: 30 0RF No Action clonazepam 1 mg tablet 1 mg PO BID PRN (Reason: anxiety) 30 Days Qty: 60 0RF epinephrine [EpiPen] 0.3 mg/0.3 mL auto-injector 0.3 mg IM Q4H PRN (Reason: anaphylaxis) 30 Days Qty: 2 1RF atorvastatin 10 mg tablet 10 mg PO BEDTIME 90 Days Qty: 90 1RF ropinirole 0.5 mg tablet 0.5 mg PO BEDTIME 90 Days Qty: 90 1RF amitriptyline 10 mg tablet 30 mg PO DAILY 30 Days Qty: 90 6RF cholecalciferol (vitamin D3) 25 mcg (1,000 unit) capsule 25 mcg PO DAILY 90 Days Qty: 90 1RF obmkcgxiss-dpmuehzaelacc-jamq 50-300-40 mg capsule 1 cap PO Q8H PRN (Reason: pain) 30 Days Qty: 90 0RF topiramate 50 mg tablet 50 mg PO DAILY 90 Days Qty: 90 3RF pregabalin 150 mg capsule 150 mg PO DAILY 30 Days Qty: 30 0RF oxycodone-acetaminophen 5-325 mg tablet 1 tab PO QID PRN (Reason: pain) 30 Days Qty: 120 0RF fentanyl 25 mcg/hr patch 72 hour 1 patch transdermal Q48H 30 Days Qty: 15 0RF omeprazole 20 mg capsule,delayed release(DR/EC) 20 mg PO DAILY 90 Days Qty: 90 1RF Referrals: [facility] [Provider Group] Rocio Alvarado MD [Primary Care Provider] - Stand Alone Forms: Work/School Release Print Language: Wolof
[2024-01-26] MEDS: 0.9 % Sodium Chloride 1,000 ML 999 ML IV (11:02)
[2024-01-26 11:07] LABS: MANUAL DIFF FLAG NO
[2024-01-26 11:09] LABS: Basophils Percent Auto 0.5 % (0-2); Eosinophils Absolute Auto 0.1 X10*3/uL (0.0-0.4); Eosinophils Percent Auto 1.1 % (0-4); Hematocrit 38.1 % (37.0-47.0); Hemoglobin 13.3 g/dl (12.0-16.0); Imm Gran Abs Auto 0.04 X10*3/uL (0.00-0.03); Imm Gran Pct Auto 0.5 % (0.0-0.4); Lymphocytes Absolute Auto 2.3 X10*3/uL (1.2-4.9); Lymphocytes Percent Auto 27.5 % (20-40); Mean Corpuscular HGB Conc 34.9 g/dl (31.0-35.0); Mean Corpuscular Hemoglobin 31.7 pg (27.0-33.0); Mean Corpuscular Volume 90.9 fL (80.0-98.0); Mean Platelet Volume 9.5 fL (9.4-12.3); Monocytes Absolute Auto 0.5 X10*3/uL (0.1-1.2); Monocytes Percent Auto 5.7 % (2-11); Neutrophils Absolute Auto 5.5 x10*3/uL (2.0-8.3); Neutrophils Percent Auto 64.7 % (45-73); Platelet Count 331 X10*3/uL (160-400); Red Blood Count 4.19 X10*6/uL (4.20-5.50); White Blood Count 8.5 X10*3/uL (4.8-10.8)
[2024-01-26 11:19] VITALS: BP 123/80; PULSE 85; RESP 16; TEMP 36.4; O2SAT 97
[2024-01-26 11:25] LABS: Alanine Aminotransferase 16 U/L (0-31); Albumin Level 4.3 g/dL (3.5-5.0); Alkaline Phosphatase 79 U/L (39-117); Anion Gap 11 (12-20); Aspartate Amino Transferase 17 U/L (5-31); Bilirubin Total 0.5 mg/dL (0.0-1.0); Blood Urea Nitrogen 12 mg/dL (9-16); Calcium 9.2 mg/dL (8.4-10.2); Carbon Dioxide 23 mmol/L (22-29); Chloride 111 mmol/L (96-108); Estimated Glomerular Filt Rate > 60; Glucose Random 96 mg/dL (60-115); Potassium 3.9 mmol/L (3.3-5.1); Sodium 141 mmol/L (135-145); Total Protein 7.1 g/dL (6.5-8.0)
[2024-01-26 11:40] LABS: Appearance Urine Cloudy; Color Urine Yellow; Glucose Urine UA Negative (Negative); Leukocyte Esterase Urine Small (1+) (Negative); Nitrite Urine Negative (Negative); Specific Gravity - Urine 1.025 (1.005-1.025); UMIC TRIGGER UACC YES; Urine Blood Negative (Negative); Urine Ketones Negative (Negative); Urine Protein Negative (Neg-Trace)
[2024-01-26 11:46] LABS: Bacteria Urine 3+ (None Seen); RBC Urine 0-2 /HPF (0-2); UACC Culture Trigger YES
[2024-01-26 12:53] VITALS: BP 147/94; PULSE 87; RESP 18; TEMP 36.6; O2SAT 97
== END 2024-01-26 12:55 | disposition home or self-care (01) ==
PROVIDERS: Nurse Practitioner Family; Emergency Provider Emergency Medicine; PCP Internal Medicine
DX: S76.011A Strain of muscle, fascia and tendon of right hip, initial encounter (principal); R10.31 Right lower quadrant pain; M25.551 Pain in right hip; M79.604 Pain in right leg; M79.7 Fibromyalgia; F41.9 Anxiety disorder, unspecified; I49.9 Cardiac arrhythmia, unspecified; R10.2 Pelvic and perineal pain; F17.210 Nicotine dependence, cigarettes, uncomplicated; X58.XXXA Exposure to other specified factors, initial encounter; Y93.89 Activity, other specified; Y92.89 Other specified places as the place of occurrence of the external cause; Y99.8 Other external cause status; Z79.899 Other long term (current) drug therapy
CPT/HCPCS: 36415; 73502; 80053; 81001; 85025; 87086; 93005; 96360; 99284

== ENCOUNTER → 2024-01-26 10:06 | Outpatient (BNV) | payer SELFPAY | PROVIDERS: Emergency Provider Emergency Medicine; PCP Internal Medicine; Visit Provider Internal Medicine | DX: R00.0 Tachycardia, unspecified (principal); R94.31 Abnormal electrocardiogram [ECG] [EKG] | CPT/HCPCS: 93010 ==

== ENCOUNTER 2024-02-16 13:50 | Outpatient (AMB) | payer BC, SELFPAY ==
--- NOTE | 2024-02-16 14:13 | MHC.PC.OV ---
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 Required: No Accompanied by: Self / Same As Patient Allergies apple [Apple] Allergy (Severe, Verified 02/16/24 14:35) ANGIOEDEMA nut - unspecified [nut] Allergy (Severe, Verified 02/16/24 14:35) SWELLING pollen extracts [POLLEN] Allergy (Intermediate, Verified 02/16/24 14:35) ITCHY EYES, SNEEZING sertraline Allergy (Intermediate, Verified 02/16/24 14:35) anxiety suvorexant [Belsomra] Allergy (Intermediate, Verified 02/16/24 14:35) hallucinations Medication List - Last Reconciled 02/16/24 by Rocio Barrios MD amitriptyline 30 mg (3 x 10 mg) PO DAILY 30 days atorvastatin 10 mg PO BEDTIME 90 days drntnngwsd-wevewkqdvueaf-scoq 50-300-40 mg 1 cap PO Q8H PRN 30 days cholecalciferol (vitamin D3) 25 mcg PO DAILY 90 days clonazepam 1 mg PO BID PRN 30 days cyclobenzaprine 10 mg (2 x 5 mg) PO TID PRN epinephrine (EpiPen) 0.3 mg (0.3 mL) IM Q4H PRN 30 days fentanyl 25 mcg/hr 1 patch transdermal Q48H 30 days ibuprofen 600 mg PO QID PRN lidocaine 5% 1 patch topical DAILY omeprazole 20 mg PO DAILY 90 days oxycodone-acetaminophen 5-325 mg 1 tab PO QID PRN 30 days pregabalin 150 mg PO DAILY 30 days ropinirole 0.5 mg PO BEDTIME 90 days topiramate 50 mg PO DAILY 90 days Tobacco use date assessed: 11/10/23 Dental Screening Dental Screen Date: 11/10/23 HPI HPI Comments History of Present Illness Details This is a 48-year-old female with mild major depression, anxiety, mixed hyperlipidemia, lumbar spine osteoarthritis and migraines that comes today for follow-up on her conditions. Depression stable with amitriptyline. Anxiety stable with benzodiazepine and patient is aware that can cause addiction, sedation and memory loss. On statins for cholesterol. On opiates for lumbar spine osteoarthritis causing low back pain. With opiates the intensity of the pain significantly decreased and make her functional during the day. Patient is aware that can cause addiction, sedation and respiratory depression. On Topamax for migraine prophylaxis as well as amitriptyline in which migraines has been less frequent and less intense. She complains of nasal congestion associated with chest congestion and fatigue and tiredness that started 2 days ago. No sick contacts. 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 Polyarticular arthritis Scoliosis of thoracolumbar spine Tachycardia Mixed hyperlipidemia Bilateral sacroiliitis Transaminitis Palpitations Hypovitaminosis D Obesity Migraines Fibromyalgia Dizziness Surgical History History of deviated nasal septum History of removal of ovarian cyst History of hysterectomy History of cholecystectomy History of tubal ligation History of tonsillectomy Family History Father Anxiety Depression Mother Breast cancer Maternal Grandmother Myocardial infarction Maternal Aunt Breast cancer Family/Other FH: mental illness Social History Housing: House Alcohol intake: never Patient Tobacco Use Status: Current everyday Tobacco user Tobacco use type: Cigarette Cigarettes Per Day: 6 Years Smoked: 20 +/- e-Cigarette/Vaping Use: Never Used Second Hand Smoke Exposure: Yes service: No Current occupational status: employed 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 Tim Reynolds, Gloria Rider, Akbar Lagos and colleagues, with an educational hiram from [employer]. Review of Systems Const All systems reviewed & are unremarkable except as noted in HPI and below Card Denies chest pain at rest, Denies chest pain with activity, Denies edema, Denies irregular heart rhythm, Denies claudication, Denies dyspnea, Denies dyspnea on exertion, Denies orthopnea, Denies paroxysmal nocturnal dyspnea and Denies slow heart rate Resp Denies cough, Denies dyspnea and Denies dyspnea on exertion GI Denies abdominal pain, Denies change in bowel habits, Denies excessive flatus, Denies nausea and Denies vomiting Denies urinary incontinence, Denies urinary hesitancy and Denies urinary urgency Musc Denies atrophy, Denies deformity and Denies limited range of motion Skin/Breast Denies bleeding lesions, Denies changing lesions and Denies rash Physical exam (Primary Care) Vital Signs: Last Vital Signs BP 130/70 02/16/24 14:14 BMI result Body Mass Index 35.5 BMI Assessment/Plan discussion: High BMI High, discussed plan: lifestyle, weight reduction, dietary and physical activity Tobacco/Smoking Status: Tobacco use Status Tobacco use date assessed 11/10/23 02/16/24 14:19 Patient Tobacco Use Status Current everyday Tobacco 02/16/24 14:19 Tobacco use type Cigarette 02/16/24 14:19 e-Cigarette/Vaping Use Never Used 02/16/24 14:19 Thrive Assessment: Date of Thrive Assessment Date Thrive assessed 11/10/23 02/16/24 14:19 Resp Effort & Inspection: normal respiratory effort Auscultation: clear to auscultation bilaterally Cardio Jugular venous distension: no JVD Rate: regular rate Rhythm: regular rhythm Heart sounds: S1 normal heart sound present and S2 normal heart sound present Extrem General: Yes full ROM Assessment and Plan Assessment & Plan (1) Mild major depression: Code(s): F32.0 - Major depressive disorder, single episode, mild Plan: Continue amitriptyline. (2) Osteoarthritis of lumbar spine: Code(s): M47.816 - Spondylosis without myelopathy or radiculopathy, lumbar region Qualifiers: Spinal osteoarthritis complication: with myelopathy Qualified Code(s): M47.16 - Other spondylosis with myelopathy, lumbar region Plan: Continue opiates as needed. (3) Mixed hyperlipidemia: Code(s): E78.2 - Mixed hyperlipidemia Plan: Continue statins. Advise low-cholesterol diet. (4) Migraines: Code(s): G43.909 - Migraine, unspecified, not intractable, without status migrainosus Qualifiers: Migraine type: unspecified Status migrainosus presence: without status migrainosus Intractability: not intractable Qualified Code(s): G43.909 - Migraine, unspecified, not intractable, without status migrainosus Plan: Continue Topamax and amitriptyline for migraine prophylaxis. Use Triptan as needed. (5) JENNIFER (generalized anxiety disorder): Code(s): F41.1 - Generalized anxiety disorder Plan: Continue benzodiazepines as needed. Orders: Orders SARS-CoV2/FLU/RSV 02/16/24 R09.89 - Other specified symptoms and signs involving the circulatory and respiratory systems Medications: New doxycycline hyclate 100 mg PO BID 10 tabs 0RF 5 days guaifenesin ER (Mucinex) 600 mg PO BID 10 tabs 0RF 5 days naloxone 4 mg/actuation (Narcan) spray 1 dose into ONE nostril; alternate nostrils w each dose until help arrives 4 mg intranasal Q2M PRN 2 ea 1RF opioid overdose 30 days Coding Level of Care Code Est Pt Level 4 (30920) Complex EM visit Add On G2211 Diagnoses Mild major depression F32.0 Osteoarthritis of lumbar spine with myelopathy M47.16 Spinal osteoarthritis complication: with myelopathy Mixed hyperlipidemia E78.2 Migraine without status migrainosus, not intractable, unspecified migraine type G43.909 Migraine type: unspecified Status migrainosus presence: without status migrainosus Intractability: not intractable JENNIFER (generalized anxiety disorder) F41.1 Time Spent (min) 22
[2024-02-16 14:14] VITALS: BP 130/70; BMI 35.5
== END 2024-02-16 14:55 | disposition home or self-care (01) ==
PROVIDERS: PCP Internal Medicine; Visit Provider Internal Medicine
DX: F32.0 Major depressive disorder, single episode, mild (principal); M47.16 Other spondylosis with myelopathy, lumbar region; E78.2 Mixed hyperlipidemia; G43.909 Migraine, unspecified, not intractable, without status migrainosus; F41.1 Generalized anxiety disorder
CPT/HCPCS: 99214

== ENCOUNTER 2024-02-16 14:59 | Outpatient (REF) | payer BC, SELFPAY ==
[2024-02-16 16:10] LABS: Influenza A PCR NEGATIVE (Negative); Influenza B PCR NEGATIVE (Negative); Resp Syncy Virus RNA Qual PCR NEGATIVE (Negative); SARS COV2 PCR INHOUSE NEGATIVE (Negative)
== END 2024-02-16 15:00 | disposition home or self-care (01) ==
LOC: HO.LAB 14:59
PROVIDERS: PCP Internal Medicine; Visit Provider Internal Medicine
DX: R09.89 Other specified symptoms and signs involving the circulatory and respiratory systems (principal)
CPT/HCPCS: 0241U

== ENCOUNTER 2024-05-16 15:11 | Outpatient (AMB) | payer BC, SELFPAY ==
--- NOTE | 2024-05-16 15:31 | MHC.PC.OV ---
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 Required: No Accompanied by: Self / Same As Patient Allergies apple [Apple] Allergy (Severe, Verified 05/16/24 16:12) ANGIOEDEMA nut - unspecified [nut] Allergy (Severe, Verified 05/16/24 16:12) SWELLING pollen extracts [POLLEN] Allergy (Intermediate, Verified 05/16/24 16:12) ITCHY EYES, SNEEZING sertraline Allergy (Intermediate, Verified 05/16/24 16:12) anxiety suvorexant [Belsomra] Allergy (Intermediate, Verified 05/16/24 16:12) hallucinations Medication List - Last Reconciled 05/16/24 by Rocio Barrios MD amitriptyline 30 mg (3 x 10 mg) PO DAILY 30 days atorvastatin 10 mg PO BEDTIME 90 days bwkzpisdtj-epzllluxcribl-ysyt 50-300-40 mg 1 cap PO Q8H PRN 30 days cholecalciferol (vitamin D3) 25 mcg PO DAILY 90 days clonazepam 1 mg PO BID PRN 30 days cyclobenzaprine 10 mg (2 x 5 mg) PO TID PRN doxycycline hyclate 100 mg PO BID 5 days epinephrine (EpiPen) 0.3 mg (0.3 mL) IM Q4H PRN 30 days fentanyl 25 mcg/hr 1 patch transdermal Q48H 30 days guaifenesin ER (Mucinex) 600 mg PO BID 5 days ibuprofen 600 mg PO QID PRN lidocaine 5% 1 patch topical DAILY naloxone 4 mg/actuation (Narcan) 4 mg intranasal Q2M PRN 30 days omeprazole 20 mg PO DAILY 90 days oxycodone-acetaminophen 5-325 mg 1 tab PO QID PRN 30 days pregabalin 150 mg PO DAILY 30 days ropinirole 0.5 mg PO BEDTIME 90 days topiramate 50 mg PO DAILY 90 days Tobacco use date assessed: 11/10/23 Dental Screening Dental Screen Date: 05/16/24 Did you have a dental visit in the last 12 months?: No Did you have a dental problem in the last 6 months where you did not have access to dental care?: No Was dental information given to patient?: Patient has dentist HPI HPI Comments History of Present Illness Details The patient is a 49-year-old female presenting with a follow-up for fibromyalgia and chronic conditions. She has a known history of fibromyalgia, which requires ongoing management to alleviate symptoms. Additionally, she has hyperlipidemia, for which she is currently prescribed atorvastatin 10 mg. The patient experiences restless leg syndrome, for which she takes Ropinirole at bedtime. She suffers from migraines, managed with Topiramate 50 mg for prophylaxis. Historically, she has struggled with weight management and has a body mass index of 37, classifying her as class II obese. Her allergies include reactions to apples, nuts, and pollen, and she has noted sertraline-induced anxiety and Balsomra-induced hallucinations in the past. 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 Polyarticular arthritis Scoliosis of thoracolumbar spine Tachycardia Mixed hyperlipidemia Bilateral sacroiliitis Transaminitis Palpitations Hypovitaminosis D Obesity Migraines Fibromyalgia Dizziness Surgical History History of deviated nasal septum History of removal of ovarian cyst History of hysterectomy History of cholecystectomy History of tubal ligation History of tonsillectomy Family History Father Anxiety Depression Mother Breast cancer Maternal Grandmother Myocardial infarction Maternal Aunt Breast cancer Family/Other FH: mental illness Social History Housing: House Alcohol intake: never Patient Tobacco Use Status: Current everyday Tobacco user Tobacco use type: Cigarette Cigarettes Per Day: 6 Years Smoked: 20 +/- e-Cigarette/Vaping Use: Never Used Second Hand Smoke Exposure: Yes service: No Current occupational status: employed 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 Tim Reynolds, Gloria Rider, Akbar Lagos and colleagues, with an educational hiram from [employer]. Review of Systems Const All systems reviewed & are unremarkable except as noted in HPI and below Card Denies chest pain at rest, Denies chest pain with activity, Denies edema, Denies irregular heart rhythm, Denies claudication, Denies dyspnea, Denies dyspnea on exertion, Denies orthopnea, Denies paroxysmal nocturnal dyspnea and Denies slow heart rate Resp Denies cough, Denies dyspnea and Denies dyspnea on exertion GI Denies abdominal pain, Denies change in bowel habits, Denies excessive flatus, Denies nausea and Denies vomiting Denies urinary incontinence, Denies urinary hesitancy and Denies urinary urgency Physical exam (Primary Care) Vital Signs: Last Vital Signs BP 130/82 05/16/24 15:32 BMI result Body Mass Index 37.3 BMI Assessment/Plan discussion: High BMI High, discussed plan: lifestyle, weight reduction, dietary and physical activity Tobacco/Smoking Status: Tobacco use Status Tobacco use date assessed 11/10/23 05/16/24 15:37 Patient Tobacco Use Status Current everyday Tobacco 05/16/24 15:37 Tobacco use type Cigarette 05/16/24 15:37 e-Cigarette/Vaping Use Never Used 05/16/24 15:37 Are you ready to quit: Yes Tobacco cessation counseling provided: Yes Items discussed: Nicotine replacement and QuitWorks Relapse Prevention: discussed the importance of a supportive environment, discussed negative mood or depression after quitting, weight gain after smoking is common and discussed dietary, exercise and/or lifestyle changes Number of minutes spent counselin CPT code: 08370 - 4-10 Minutes Thrive Assessment: Date of Thrive Assessment Date Thrive assessed 11/10/23 05/16/24 15:37 Resp Effort & Inspection: normal respiratory effort Auscultation: clear to auscultation bilaterally Cardio Jugular venous distension: no JVD Rate: regular rate Rhythm: regular rhythm Heart sounds: S1 normal heart sound present and S2 normal heart sound present Extrem General: Yes full ROM Office Procedures Flu Questionnaire Does the patient have a severe egg allergy?: No Immunizations Fluarix Triv [id number] (PF) 45 mcg (15 mcg x 3)/0.5 mL IM syringe Performing Provider: Rocio Barrios MD [facility] Documented (not given) by: LOBITO Stafford on 05/16/24 15:40 Reason Not Given: Patient Refused Coding Level of Care Code Est Pt Level 4 (37428) Complex EM visit Add On G2211 Diagnoses Class 2 obesity with body mass index (BMI) of 37.0 to 37.9 in adult E66.812; Z68.37 Mild major depression F32.0 Mixed hyperlipidemia E78.2 Migraine without status migrainosus, not intractable, unspecified migraine type G43.909 Migraine type: unspecified Status migrainosus presence: without status migrainosus Intractability: not intractable Fibromyalgia M79.7 Additional Codes Vital Signs *Quality* - CPT code: 49386 - 4-10 Minutes ([id number]) Time Spent (min) 22 Assessment & Plan Assessment & Plan (1) Class 2 obesity with body mass index (BMI) of 37.0 to 37.9 in adult: Code(s): E66.812 - Obesity, class 2; Z68.37 - Body mass index [BMI] 37.0-37.9, adult Category: Medical (2) Mild major depression: Code(s): F32.0 - Major depressive disorder, single episode, mild Category: Medical (3) Mixed hyperlipidemia: Code(s): E78.2 - Mixed hyperlipidemia Category: Medical (4) Migraines: Code(s): G43.909 - Migraine, unspecified, not intractable, without status migrainosus Category: Medical Qualifiers: Migraine type: unspecified Status migrainosus presence: without status migrainosus Intractability: not intractable Qualified Code(s): G43.909 - Migraine, unspecified, not intractable, without status migrainosus (5) Fibromyalgia: Code(s): M79.7 - Fibromyalgia Category: Medical Plan - Fibromyalgia: Continue current medications for symptom management, including amitriptyline and Lyrica. - Hyperlipidemia: Continue atorvastatin for cholesterol management. - Restless Leg Syndrome: Continue Ropinirole at bedtime. - Migraine: Continue Topiramate 50 mg as a prophylactic measure. - Class II Obesity: Discussed the possibility of semaglutide Wegovy) for weight management; consider initiation if approved by insurance. - Allergies: Continue avoidance of known allergens and utilization of EpiPen as needed. Patient was informed and verbally consented to the use of an ambient scribe for clinic note documentation during this visit. During the visit, we discussed the continuation of the patient's current medication regimen for fibromyalgia, hyperlipidemia, restless leg syndrome, and migraine prevention. I explored the possibility of starting semaglutide (Wegovy) for weight management due to the patient's class II obesity, noting its benefits in appetite suppression and weight loss as well as potential side effects such as nausea, vomiting, and pancreatitis. We reviewed that the drug requires dose escalation over several months. I addressed the patient's smoking cessation efforts, highlighting that reduced smoking might affect mood and weight. Reviewed snack choices, emphasizing the importance of protein intake to aid weight management. We agreed on proceeding with blood work at the next physical in six months and maintaining current management strategies. The patient consented to the discussed plans. Orders: Orders Lipid Panel 6 Months E78.5 - Hyperlipidemia, unspecified Comprehensive [place]. Panel Fast 6 Months E66.812 - Obesity, class 2, Z68.37 - Body mass index [BMI] 37.0-37.9, adult Influenza [id number] Immunization Today Z23 - Encounter for immunization Vitamin D 25-OH Total 6 Months E55.9 - Vitamin D deficiency, unspecified Medications: New semaglutide (weight loss) (Wegovy) administer weeks 1 through 4 of therapy 0.25 mg (0.5 mL) subcut QWEEK 2 mL 0RF 4 weeks E66.812 - Obesity, class 2, E78.2 - Mixed hyperlipidemia, Z68.37 - Body mass index [BMI] 37.0-37.9, adult Patient Instructions: - Continue prescribed medications for fibromyalgia, hyperlipidemia, restless leg syndrome, and migraine. - Avoid known allergens and keep EpiPen available. - Consider snacking on high-protein options and limit sugary items. - Follow up with pharmacy for potential semaglutide initiation, pending insurance approval. - Continue attempts to quit smoking, mindful of mood and weight changes. - Schedule follow-up for blood work in six months unless otherwise directed.
[2024-05-16 15:32] VITALS: BP 130/82; BMI 37.3
== END 2024-05-16 16:36 | disposition home or self-care (01) ==
PROVIDERS: PCP Internal Medicine; Visit Provider Internal Medicine
DX: E66.812 Obesity, class 2 (principal); Z68.37 Body mass index [BMI] 37.0-37.9, adult; F32.0 Major depressive disorder, single episode, mild; E78.2 Mixed hyperlipidemia; G43.909 Migraine, unspecified, not intractable, without status migrainosus; M79.7 Fibromyalgia; Z23 Encounter for immunization

== ENCOUNTER → 2024-05-16 15:11 | Outpatient (BNVA) | payer BC, SELFPAY | PROVIDERS: PCP Internal Medicine; Visit Provider Internal Medicine | DX: E66.812 Obesity, class 2 (principal); Z68.37 Body mass index [BMI] 37.0-37.9, adult; F32.0 Major depressive disorder, single episode, mild; E78.2 Mixed hyperlipidemia; G43.909 Migraine, unspecified, not intractable, without status migrainosus; M79.7 Fibromyalgia; G25.81 Restless legs syndrome; Z79.899 Other long term (current) drug therapy; Z28.21 Immunization not carried out because of patient refusal | CPT/HCPCS: 90471 ==

== ENCOUNTER 2024-07-10 09:05 | Outpatient (AMB) | payer BC, SELFPAY ==
--- NOTE | 2024-07-10 10:53 | AM.OFFWIN_ITS ---
Intake Vital Signs 07/10/24 11:00 Weight 204 lb BP 110/78 Blood Pressure Location Rt brachial Position Sitting Pulse 112 H Pulse Source Pulse Oximeter Temp 99.0 F Temp Source Oral Pulse Oximetry (%) 98 Oxygen Delivery Method Room Air Intake Visit Reasons: EP loss of voice, ears, throat, chest congestion Intake Note: Patient here for loss of voice, bilat ear pain, chest congestion and dry throat. Patient Tobacco Use Status: Current everyday Tobacco user Allergies apple [Apple] Allergy (Severe, Verified 07/10/24 11:01) ANGIOEDEMA nut - unspecified [nut] Allergy (Severe, Verified 07/10/24 11:01) SWELLING pollen extracts [POLLEN] Allergy (Intermediate, Verified 07/10/24 11:01) ITCHY EYES, SNEEZING sertraline Allergy (Intermediate, Verified 07/10/24 11:01) anxiety suvorexant [Belsomra] Allergy (Intermediate, Verified 07/10/24 11:01) hallucinations Do you need a note to return to daycare/school/sports/work: No HPI HPI Comments History of Present Illness Details This is a 49 year old female with a past medical history of fibromyalgia presenting for evaluation of laryngitis, fatigue, otalgia bilaterally, sore throat and cough that she has had for the past 4 days. Patient states that she has colleagues and med diagnosed with both influenza and COVID. Patient denies having any fevers but has had chills. 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 Polyarticular arthritis Scoliosis of thoracolumbar spine Tachycardia Mixed hyperlipidemia Bilateral sacroiliitis Transaminitis Palpitations Hypovitaminosis D Obesity Migraines Fibromyalgia Dizziness Surgical History History of deviated nasal septum History of removal of ovarian cyst History of hysterectomy History of cholecystectomy History of tubal ligation History of tonsillectomy Family History Father Anxiety Depression Mother Breast cancer Maternal Grandmother Myocardial infarction Maternal Aunt Breast cancer Family/Other FH: mental illness Social History Housing: House Alcohol intake: never Patient Tobacco Use Status: Current everyday Tobacco user Tobacco use type: Cigarette Cigarettes Per Day: 6 Years Smoked: 20 +/- e-Cigarette/Vaping Use: Never Used Second Hand Smoke Exposure: Yes service: No Current occupational status: employed 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 Current occupational exposures/hazards: No Cognitive needs: No Hearing needs: No Vision needs: No Female Reproductive History Menstrual Age of Menarche: 10 Review of Systems Const All systems reviewed & are unremarkable except as noted in HPI and below Reports no additional complaints Eyes Reports no additional complaints ENT Reports otalgia, Denies odynophagia, Denies sinus pain, Denies sinus pressure and Reports sore throat Card Denies chest pain Resp Denies chest congestion, Reports cough, Denies hemoptysis and Denies stridor GI Reports no additional complaints and Denies odynophagia Reports no additional complaints Musc Reports no additional complaints Skin/Breast Reports system reviewed and no additional complaints, except as documented Neuro Reports no additional complaints Psych Reports no additional complaints Endo Reports no additional complaints Adonis/Lymph Reports no additional complaints Aller/Immun Reports no additional complaints Physical Exam Vital Signs: Last Vital Signs Temp 99.0 F 07/10/24 11:00 Pulse 112 H 07/10/24 11:00 BP 110/78 07/10/24 11:00 Pulse Ox 98 07/10/24 11:00 Oxygen Delivery Method Room Air 07/10/24 11:00 Patient is afebrile and tachycardic. Const General: cooperative, healthy appearing, comfortable, no acute distress, well developed, alert, awake and Physically active; No lethargic Nutritional Appearance: average body habitus Orientation/consciousness: patient oriented x3 and No lethargic Limitations: no limitations HEENT Head: Yes normal to inspection and Yes normocephalic Ears: hearing grossly normal bilaterally, external ears normal, TM's normal bilaterally and EAC's normal General nose exam: Normal external nose present Face and sinus: Yes normal facial exam and Yes sinuses nontender Mouth: Normal oral and palatal mucosa present Throat: Yes posterior oropharynx normal (There is no edema, erythema or exudates of the posterior oropharynx.) and Yes postnasal drainage Eyes General: appearance normal, both eyes and all related structures Neck Lymphatic: no lymphadenopathy noted Resp Effort & Inspection: normal respiratory effort, able to speak in complete sentences, no audible wheezes, no cough, no respiratory distress and not tachypneic Auscultation: clear to auscultation bilaterally Cardio Rate: tachycardic (104bpm) Rhythm: regular rhythm Skin General skin exam: no rashes or lesions noted Neuro General: patient oriented x3 Psych Appearance: grossly normal Mental Status: mental status grossly normal Insight: Good insight present (Psych) Judgement: Good judgement present (Psych) Assessment & Plan Assessment & Plan (1) Acute upper respiratory infection: Comment: SARS panel is ordered and results are pending. Code(s): J06.9 - Acute upper respiratory infection, unspecified Plan: Mucinex OTC with increase clear fluids daily, tea with honey and rest as tolerated. Orders: Orders SARS-CoV2/FLU/RSV Today J06.9 - Acute upper respiratory infection, unspecified Coding Level of Care Code Est Pt Level 3 (18051) Diagnoses Acute upper respiratory infection J06.9 Time Spent (min) 20
[2024-07-10 11:00] VITALS: BP 110/78; PULSE 112; TEMP 37.2; O2SAT 98
== END 2024-07-10 11:37 | disposition home or self-care (01) ==
PROVIDERS: PCP Internal Medicine; Visit Provider Physician Assistant
DX: J06.9 Acute upper respiratory infection, unspecified (principal)

== ENCOUNTER 2024-07-10 09:05 | Outpatient (REF) | payer BC, SELFPAY ==
[2024-07-10 16:02] LABS: Influenza A PCR NEGATIVE (Negative); Influenza B PCR NEGATIVE (Negative); Resp Syncy Virus RNA Qual PCR NEGATIVE (Negative); SARS COV2 PCR INHOUSE NEGATIVE (Negative)
== END 2024-07-10 09:06 | disposition home or self-care (01) ==
LOC: HO.LNP 09:05
PROVIDERS: Physician Assistant; PCP Internal Medicine
DX: J06.9 Acute upper respiratory infection, unspecified (principal)
CPT/HCPCS: 0241U

== ENCOUNTER 2024-11-21 15:38 | Outpatient (AMB) | payer BC, SELFPAY ==
--- NOTE | 2024-11-21 15:42 | MHC.PC.OV ---
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 Accompanied by: Self / Same As Patient Allergies apple [Apple] Allergy (Severe, Verified 11/21/24 16:01) ANGIOEDEMA nut - unspecified [nut] Allergy (Severe, Verified 11/21/24 16:01) SWELLING pollen extracts [POLLEN] Allergy (Intermediate, Verified 11/21/24 16:01) ITCHY EYES, SNEEZING sertraline Allergy (Intermediate, Verified 11/21/24 16:01) anxiety suvorexant [Belsomra] Allergy (Intermediate, Verified 11/21/24 16:01) hallucinations semaglutide [From Wegovy] Adverse Reaction (Intermediate, Verified 11/21/24 16:01) Migraine Medication List - Last Reconciled 11/21/24 by Rocio Barrios MD amitriptyline 30 mg (3 x 10 mg) PO DAILY 30 days atorvastatin 10 mg PO BEDTIME 90 days fvhfmkxyhe-vnnkougpclgtd-pmes 50-300-40 mg 1 cap PO Q8H PRN 30 days cholecalciferol (vitamin D3) 25 mcg PO DAILY 90 days clonazepam 1 mg PO BID PRN 30 days cyclobenzaprine 10 mg (2 x 5 mg) PO TID PRN epinephrine (EpiPen) 0.3 mg (0.3 mL) IM Q4H PRN 30 days fentanyl 25 mcg/hr 1 patch transdermal Q48H 30 days ibuprofen 600 mg PO QID PRN lidocaine 5% 1 patch topical DAILY naloxone 4 mg/actuation (Narcan) 4 mg intranasal Q2M PRN 30 days omeprazole 20 mg PO DAILY 90 days oxycodone-acetaminophen 5-325 mg 1 tab PO QID PRN 30 days pregabalin 150 mg PO DAILY 30 days ropinirole 0.5 mg PO BEDTIME 90 days topiramate 50 mg PO DAILY 90 days Tobacco use date assessed: 11/21/24 Dental Screening Dental Screen Date: 11/21/24 Did you have a dental visit in the last 12 months?: Yes Did you have a dental problem in the last 6 months where you did not have access to dental care?: No Was dental information given to patient?: Patient has dentist HPI HPI Comments History of Present Illness Details The patient is a 49-year-old female presenting with management of migraines, depression, and insomnia as well as class 2 obesity with a BMI of 36.8. She reports daily migraines, exacerbated by certain medications, and is using amitriptyline 30 mg for prevention. Fioricet is used as needed, with caution due to potential rebound headaches. The patient has a history of depression and insomnia, managed with clonazepam and amitriptyline She is concerned about medication side effects and interactions. A colonoscopy is scheduled for February 20, and she has an upcoming gynecological appointment. The patient has hyperlipidemia, managed with atorvastatin 10 mg. 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 Regarding her weight she has tried diet and exercise. Was on wegovy in the past which gave her migraines. Would like to try Zepbound. Already on Topamax for migraine prophylaxis which does help with weight also. [facility] Medical History (Updated 11/21/24 @ 20:48 by Rocio Barrios MD) Osteoarthritis of lumbar spine Chronic lower back pain JENNIFER (generalized anxiety disorder) B12 deficiency skilled nursing (current) use of opiate analgesic Polyarticular arthritis Scoliosis of thoracolumbar spine Tachycardia Mixed hyperlipidemia Bilateral sacroiliitis Transaminitis Palpitations Hypovitaminosis D Obesity Migraines Fibromyalgia Dizziness Surgical History History of deviated nasal septum History of removal of ovarian cyst History of hysterectomy History of cholecystectomy History of tubal ligation History of tonsillectomy Family History Father Anxiety Depression Mother Breast cancer Maternal Grandmother Myocardial infarction Maternal Aunt Breast cancer Family/Other FH: mental illness Social History Housing: House Alcohol intake: never Patient Tobacco Use Status: Current everyday Tobacco user Tobacco use type: Cigarette Cigarettes Per Day: 6 Years Smoked: 20 +/- Packs per year/per ci.00 e-Cigarette/Vaping Use: Never Used Second Hand Smoke Exposure: Yes service: No Current occupational status: employed 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 1. Little interest or pleasure in doing things: several days 2. Feeling down, depressed, or hopeless: several days 3. Trouble falling or staying asleep, or sleeping too much: not at all 4. Feeling tired or having little energy: several days 5. Poor appetite or overeating: not at all 6. Feeling bad about yourself - or that you are a failure or have let yourself or your family down: not at all 7. Trouble concentrating on things, such as reading the newspaper or watching television: not at all 8. Moving or speaking so slowly that other people could have noticed. Or the opposite - being so fidgety or restless that you have been moving around a lot more than usual: not at all 9. Thoughts that you would be better off or of hurting yourself in some way: not at all Total score: 3 Depression Screening Interpretation: Positive Depression Screening Follow-up: Existing condition, In treatment and Follow-up Visit Requested Depression Screening Done: Yes 38315 - PHQ-9 Billing: Yes Source: Developed by Drs. Tim Reynolds, Gloria Rider, Akbar Lagos and colleagues, with an educational hiram from [employer]. Thrive Questionnaire Date Thrive assessed: 11/21/24 I am a: Patient What is your living situation today?: I have a steady place to live Within the past 12 months, did the food you bought not last and you didn't have the money to get more?: Never true Within the past 12 months, did you worry whether your food would run out before you got money to buy more?: Never true Do you have trouble paying for medicines?: No Do you have trouble getting transportation to medical appointments?: No Do you have trouble paying your heating and electricity bill?: No Do you have trouble taking care of your child, family member or friend?: No Do you have trouble with day-to-day activities such as bathing, preparing meals, shopping, managing finances, etc.?: No Are you currently unemployed and looking for a job?: No Are you interested in more education?: No Please select the resources that you would like help with: None Currently or been in a relationship where the following occur: No concerns reported THRIVE Score: 0 AUDIT C Alcohol Use Questionnaire (AUDIT-C) 1. How often do you have a drink containing alcohol?: Never Total Score: 0 Score Reviewed/Action Taken: No JENNIFER-7 AMB Questionnaire JENNIFER-7 Date JENNIFER - 7 assessed: 11/10/23 Feeling nervous, anxious, or on edge: 1 = Several days Not being able to stop or control worryin = Not at all Worrying too much about different things: 0 = Not at all Trouble relaxin = Not at all Being so restless that it is hard to sit still: 0 = Not at all Becoming easily annoyed or irritable: 0 = Not at all Feeling afraid as if something awful might happen: 0 = Not at all Total JENNIFER-7 score (0-4 normal; 5-9 mild; 10-14 moderate; 15-21 severe): 1 Source: Developed by Drs. Tim Reynolds, Gloria Rider, Akbar Lagos and colleagues, with an educational hiram from [employer]. JENNIFER-7 Assessment Billing JENNIFER-7 Assessment Tool: JENNIFER-7 Assessment 15140 Review of Systems Const All systems reviewed & are unremarkable except as noted in HPI and below Card Denies chest pain at rest, Denies chest pain with activity, Denies edema, Denies irregular heart rhythm, Denies claudication, Denies dyspnea, Denies dyspnea on exertion, Denies orthopnea, Denies paroxysmal nocturnal dyspnea and Denies slow heart rate Resp Denies cough, Denies dyspnea and Denies dyspnea on exertion GI Denies abdominal pain, Denies change in bowel habits, Denies excessive flatus, Denies nausea and Denies vomiting Denies urinary incontinence, Denies urinary hesitancy and Denies urinary urgency Musc Denies abnormal gait, Denies atrophy, Denies deformity and Denies limited range of motion Skin/Breast Denies bleeding lesions, Denies changing lesions and Denies rash Neuro Denies abnormal gait and Denies lack of coordination Physical exam (Primary Care) Vital Signs: Last Vital Signs BP 122/80 11/21/24 15:43 BMI result Body Mass Index 36.8 BMI Assessment/Plan discussion: High BMI High, discussed plan: lifestyle, weight reduction, dietary and physical activity Tobacco/Smoking Status: Tobacco use Status Tobacco use date assessed 11/21/24 11/21/24 15:57 Patient Tobacco Use Status Current everyday Tobacco 11/21/24 15:47 Tobacco use type Cigarette 11/21/24 15:47 e-Cigarette/Vaping Use Never Used 11/21/24 15:47 PHQ-9: PHQ-9 Score PHQ-9: Total score 3 11/21/24 16:11 Depression Screening Interpretation: Positive Depression Screening Follow-up: Existing condition, In treatment and Follow-up Visit Requested Thrive Assessment: Date of Thrive Assessment Date Thrive assessed 11/21/24 11/21/24 15:56 Currently or been in a relationship where the following occur: No concerns reported Resp Effort & Inspection: normal respiratory effort Auscultation: clear to auscultation bilaterally Cardio Jugular venous distension: no JVD Rate: regular rate Rhythm: regular rhythm Heart sounds: S1 normal heart sound present and S2 normal heart sound present Extrem General: Yes full ROM Coding Level of Care Code Est Pt Level 4 (36814) Complex EM visit Add On G2211 Diagnoses Severe obesity with body mass index (BMI) of 36.0 to 36.9 with serious comorbidity E66.01; Z68.36 Mild major depression F32.0 JENNIFER (generalized anxiety disorder) F41.1 Migraine without status migrainosus, not intractable, unspecified migraine type G43.909 Migraine type: unspecified Status migrainosus presence: without status migrainosus Intractability: not intractable Mixed hyperlipidemia E78.2 Osteoarthritis of lumbar spine with myelopathy M47.16 Spinal osteoarthritis complication: with myelopathy Additional Codes JENNIFER-7 Assessment Billing - JENNIFER-7 Assessment Tool: JENNIFER-7 Assessment 77126 ([id number]) PHQ-9 - 67169 - PHQ-9 Billing: Yes ([id number]) Time Spent (min) 23 Assessment & Plan Assessment & Plan (1) Severe obesity with body mass index (BMI) of 36.0 to 36.9 with serious comorbidity: Code(s): E66.01 - Morbid (severe) obesity due to excess calories; Z68.36 - Body mass index [BMI] 36.0-36.9, adult Category: Medical (2) Mild major depression: Code(s): F32.0 - Major depressive disorder, single episode, mild Category: Medical (3) JENNIFER (generalized anxiety disorder): Code(s): F41.1 - Generalized anxiety disorder Category: Medical (4) Migraines: Code(s): G43.909 - Migraine, unspecified, not intractable, without status migrainosus Category: Medical Qualifiers: Migraine type: unspecified Status migrainosus presence: without status migrainosus Intractability: not intractable Qualified Code(s): G43.909 - Migraine, unspecified, not intractable, without status migrainosus (5) Mixed hyperlipidemia: Code(s): E78.2 - Mixed hyperlipidemia Category: Medical (6) Osteoarthritis of lumbar spine: Code(s): M47.816 - Spondylosis without myelopathy or radiculopathy, lumbar region Category: Medical Qualifiers: Spinal osteoarthritis complication: with myelopathy Qualified Code(s): M47.16 - Other spondylosis with myelopathy, lumbar region Plan The patient will continue amitriptyline 30 mg for migraine prevention, with careful monitoring for side effects. Fioricet should be used sparingly to prevent rebound headaches. For depression and insomnia, clonazepam and cyclobenzaprine will be continued, with attention to potential medication interactions. Preventative care includes a colonoscopy on February 20 and regular breast cancer screenings due to family history. The patient should monitor for new symptoms and report them promptly. Patient was informed and verbally consented to the use of an ambient scribe for clinic note documentation during this visit. I discussed with the patient the importance of continuing her current medication regimen for migraines, depression, and insomnia, while being mindful of potential side effects and interactions. We reviewed the need for sparing use of Fioricet to avoid rebound headaches. Preventative care measures, including a scheduled colonoscopy and regular breast cancer screenings, were emphasized due to her family history. Orders: Orders Vitamin D 25-OH Total 4 Months E55.9 - Vitamin D deficiency, unspecified Comprehensive [place]. Panel Fast 4 Months E66.812 - Obesity, class 2, Z68.37 - Body mass index [BMI] 37.0-37.9, adult Lipid Panel 4 Months E78.5 - Hyperlipidemia, unspecified Medications: New tirzepatide (weight loss) (Zepbound) for 4 weeks 2.5 mg (0.5 mL) subcut QWEEK 2 mL 0RF 4 weeks E66.811 - Obesity, class 1 Patient Instructions: - Continue taking amitriptyline 30 mg daily for migraine prevention. - Use Fioricet sparingly to avoid rebound headaches. - Continue clonazepam and cyclobenzaprine for depression and insomnia. - Attend scheduled colonoscopy on February 20. - Schedule regular breast cancer screenings due to family history. - Monitor for any new symptoms and report them promptly.
[2024-11-21 15:43] VITALS: BP 122/80; BMI 36.8
== END 2024-11-21 16:16 | disposition home or self-care (01) ==
LOC: HO.HMCH 15:38
PROVIDERS: PCP Internal Medicine; Visit Provider Internal Medicine
DX: E66.01 Morbid (severe) obesity due to excess calories (principal); Z68.36 Body mass index [BMI] 36.0-36.9, adult; F32.0 Major depressive disorder, single episode, mild; F41.1 Generalized anxiety disorder; G43.909 Migraine, unspecified, not intractable, without status migrainosus; E78.2 Mixed hyperlipidemia; M47.16 Other spondylosis with myelopathy, lumbar region

== ENCOUNTER → 2024-11-21 15:38 | Outpatient (BNVA) | payer BC, SELFPAY | PROVIDERS: PCP Internal Medicine; Visit Provider Internal Medicine | DX: E78.2 Mixed hyperlipidemia (principal); G43.909 Migraine, unspecified, not intractable, without status migrainosus; G47.00 Insomnia, unspecified; E66.812 Obesity, class 2; E66.01 Morbid (severe) obesity due to excess calories; F32.0 Major depressive disorder, single episode, mild; F41.1 Generalized anxiety disorder; M47.16 Other spondylosis with myelopathy, lumbar region; Z68.36 Body mass index [BMI] 36.0-36.9, adult; Z79.899 Other long term (current) drug therapy | CPT/HCPCS: 96127 ==

== ENCOUNTER 2025-03-18 10:13 | Outpatient (AMB) | payer BC, SELFPAY ==
[2025-03-18 11:12] VITALS: BP 120/80; PULSE 101; TEMP 36.9; O2SAT 98; BMI 36.4
--- NOTE | 2025-03-18 11:12 | AM.OFFWIN_ITS ---
Intake Vital Signs 03/18/25 11:12 Height 5 ft 2 in Weight 199 lb BMI 36.4 BP 120/80 Blood Pressure Location Lt brachial Position Sitting Pulse 101 H Pulse Source Pulse Oximeter Temp 98.5 F Temp Source Oral Pulse Oximetry (%) 98 Intake Visit Reasons: EP-sore throat, ears ache Patient Tobacco Use Status: Current everyday Tobacco user Allergies apple (Apple) Allergy (Severe, Verified 03/18/25 11:27) ANGIOEDEMA nut - unspecified (nut) Allergy (Severe, Verified 03/18/25 11:27) SWELLING pollen extracts (POLLEN) Allergy (Intermediate, Verified 03/18/25 11:27) ITCHY EYES, SNEEZING sertraline Allergy (Intermediate, Verified 03/18/25 11:27) anxiety suvorexant (Belsomra) Allergy (Intermediate, Verified 03/18/25 11:27) hallucinations semaglutide (From Wegovy) Adverse Reaction (Intermediate, Verified 03/18/25 11:27) Migraine Do you need a note to return to daycare/school/sports/work: No HPI HPI Comments History of Present Illness Details History - The patient is a 49-year-old female pr esenting with a sore throat and ear pain. - The sore throat and ear pain began rec ently, with the right ear being more affected. - The patient reports a sensation of wet ness in the ears, but no significant discharge was noted. - Congestion has been present for the la st two days without cough. - No fever was noted after the initial d ay of symptoms, and there was recent indirect exposure to COVID-19 through her mother. - The patient took leftover amoxicillin from a dental procedure without significant improvement. - She denies fever, chills, CP, SOB, abd pain, n/v/d, dizziness. - She has been working from home so she has no sick contacts. - She states that her mother had covid b ut she was not around her. - She is not a smoker. Physical Exam General: Cooperative, healthy appearing, comfortable and no acute distress Orientation/consciousness: Patient oriented x3 Limitations: No limitations Head: Normal to inspection Ears: Hearing grossly normal bilaterally, external ears normal, right ear feels wet with dry crusting, no discharge noted, TM's normal bilaterally Nose: Normal external nose present, normal nares present, and no nasal discharge present. Face and sinus: Sinuses nontender to palpation. Mouth: Normal oral and palatal mucosa present and moist mucous membranes noted. Throat: Tonsils normal. Uvula is midline. Posterior oropharynx with erythema and no exudates. Eyes: Appearance normal, both eyes and all related structures Neck: Normal visual inspection, full ROM. No lymphadenopathy noted. Respiratory: Clear to auscultation bilaterally. Normal respiratory effort, able to speak in complete sentences. No respiratory distress, not tachypneic, no tripod positioning and no use of accessory muscles. Cardiovascular: Regular rate and rhythm. 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 Polyarticular arthritis Scoliosis of thoracolumbar spine Tachycardia Mixed hyperlipidemia Bilateral sacroiliitis Transaminitis Palpitations Hypovitaminosis D Obesity Migraines Fibromyalgia Dizziness Surgical History History of deviated nasal septum History of removal of ovarian cyst History of hysterectomy History of cholecystectomy History of tubal ligation History of tonsillectomy Family History Father Anxiety Depression Mother Breast cancer Maternal Grandmother Myocardial infarction Maternal Aunt Breast cancer Family/Other FH: mental illness Social History Housing: House Alcohol intake: never Patient Tobacco Use Status: Current everyday Tobacco user Tobacco use type: Cigarette Cigarettes Per Day: 6 Years Smoked: 20 +/- e-Cigarette/Vaping Use: Never Used Second Hand Smoke Exposure: Yes service: No Current occupational status: employed 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 Current occupational exposures/hazards: No Cognitive needs: No Hearing needs: No Vision needs: No Female Reproductive History Menstrual Age of Menarche: 10 Review of Systems Const All systems reviewed & are unremarkable except as noted in HPI and below Physical Exam Vital Signs: Last Vital Signs Temp 98.5 F 03/18/25 11:12 Pulse 101 H 03/18/25 11:12 BP 120/80 03/18/25 11:12 Pulse Ox 98 03/18/25 11:12 BMI result Body Mass Index 36.4 Results AMB Rapid Strep AMB Rapid Strep Negative Last Edit by Indra Carey CMA on 03/18/25 11 :38 Results Reviewed Results Reviewed: Laboratory Last Values Strep Scn Rapid Clinic Negative 03/18/25 11:37 Assessment & Plan Assessment & Plan (1) Sore throat: Code(s): J02.9 - Acute pharyngitis, unspecified (2) Congestion of upper airway: Code(s): J98.8 - Other specified respiratory disorders Plan Most likely URI vs strep vs covid vs flu vs viral illness rapid strep was negative plan - A rapid strep test was negative, and a respiratory panel was ordered to rule out viral causes. - Symptomatic treatment with decongestants and antihistamines was recommended. - No significant ear discharge was observed, and symptomatic treatment with decongestants was advised. - zyrtec D daily and flonase - tylenol or motrin as needed for pain - will call with the results - follow up with PCP Orders: Orders AMB Rapid Strep Screen Today Z13.9 - Encounter for screening, unspecified Resp Pathogen Panel - [facility] [place] J06.9 - Acute upper respiratory infection, unspecified Medications: New cetirizine-pseudoephedrine 5-120 mg ER 1 tab PO BID 14 tabs 0RF 7 days fluticasone propionate 50 mcg/actuation administer into each nostril 1 spray intranasal Q12H 16 grams 0RF Coding Level of Care Code Est Pt Level 3 (51992) Diagnoses Sore throat J02.9 Congestion of upper airway J98.8
--- OUTSIDE RECORDS SUMMARY | 2025-03-18 11:53 | XMS_ITS | Clinical Summary ---
Author Organization [facility] Address [address] [address] Phone Care Team Providers Care Gas Inspector Name Role Phone Rocio Alvarado MD Primary Care Provid er Medications amitriptyline (ELAVIL) 10 MG tablet 10/30/2021 Active atorvastatin (LIPITOR) 10 MG tablet Take 10 mg by mouth nightly at bedtime. at bedtime. 08/13/2021 Active VITAMIN D3 50 mcg (2,000 unit) capsule Take by mouth daily. 08/17/2021 Active clonazePAM (KLONOPIN) 1 MG tablet TAKE 1 TABLET BY MOUTH TWICE A DAY FOR 30 DAYS NEEDED FOR ANXIETY 09/07/2021 Active fentaNYL (DURAGESIC) 25 mcg/hr APPLY 1 PATCH TO SKIN EVERY 48 HOURS 10/26/2021 Active oxyCODONE-aceta minophen (PERCOCET) 5-325 mg per tablet TAKE 1 TABLET BY MOUTH 4 TIMES A DAY NEEDED FOR PAIN 10/20/2021 Active pregabalin (LYRICA) 150 MG capsule Take by mouth daily. 10/14/2021 Active rOPINIRole (REQUIP) 0.5 MG tablet TAKE 1 TABLET BY MOUTH EVERYDAY AT BEDTIME 08/29/2021 Active topiramate (TOPAMAX) 50 MG tablet Take 50 mg by mouth daily. 09/25/2021 Active Social History Tobacco Use Types Packs/Day Years Used Date Smoking Tobacco: Every Day Cigarettes Tobacco Cessation:Ready to Q uit: Yes; Counseling Given: No Education Answer Date Recorded Are you interested in more education? Not on papi e 10/08/2022 Are you concerned about learning? Not on file 10/08/2022 No 10/08/2022 No 10/08/2022 Digital Access Answer Date Recorded No 11/05/2022 No 11/05/2022 No 11/05/2022 Reliable internet access at home? Not on file 11/05/2022 Device with a working camera? Not on file Comments Unknown Sex and Gender Information Value Date Recorded Sex Assigned at Female 10/12/2021 1:37 PM EDT Legal Sex Female 9:30 PM EDT Gender Identity Female 10/12/2021 1:37 PM EDT Sexual Orientation Straight 10/12/2021 1: 37 PM EDT Last Filed Vital Signs Vital Sign Reading Time Taken Comments Blood Pressure 127/82 11/02/2021 1:47 PM EDT Pulse 111 11/02/2021 1:47 PM EDT Temperature - - Respiratory Rate - - Oxygen Saturation - - Inhaled Oxygen Concentration - - Weight 90.7 kg (200 lb) 11/02/2021 1:47 PM EDT Height 157.5 cm (5' 2 ) 11/02/2021 1:47 PM EDT Body Mass Index 36.58 11/02/2021 1:47 PM EDT Plan of Treatment Health Maintenance Due Date Last Done Comments Adult Td,Tdap Booster 1974 LIPID PANEL 1974 DEPRESSION SCREENING 1986 SMOKING Hx and SMOKELESS TOBACCO SCREENING 1987 HEPATITIS C SCREENING 1992 HIV ONE-TIME SCREENING (18-6 5 YEARS) 1992 PNEUMOCOCCAL VACCINES (50+ years) (1 of 2 - PCV) 1993 PAP SMEAR 1995 MAMMOGRAM 2014 COLOGUARD 2019 COLONOSCOPY 2019 COLORECTAL CANCER SCREENING 2019 FIT TEST 2019 FOBT 2019 SIGMOIDOSCOPY 2019 VIRTUAL COLONOSCOPY 2019 ZOSTER VACCINES (1 of 2) 2024 INFLUENZA VACCINE (#1) 2025 COVID-19 VACCINE (3 - 2024-2 6 season) 2025 10/08/2020, 09/15/2020 HEPATITIS A VACCINES Aged Out No long er eligible based on patient's age to complete this topic HIB VACCINES Aged Out No longer eligi ble based on patient's age to complete this topic MENINGOCOCCAL VACCINES (ACWY) Aged Out No longer eligible based on patient's age to complete this topic MENINGOCOCCAL VACCINES (B) Aged Out N o longer eligible based on patient's age to complete this topic Medical Devices Not on file Insurance PPO EPO PPO EPO PPO EPO PPO EPO PPO EPO PPO EPO PPO EPO PPO EPO [facility] [place] PPO EPO Care Teams Gas Inspector Relationship Specialty Start Date End Date Rocio Alvarado MD [address] [place] [address] PCP - General Internal Medicine 10/12/21 Additional Source Comments The information contained in this document represents components of the legal health record. It is not the complete legal health record.[facility]
== END 2025-03-18 12:07 | disposition home or self-care (01) ==
PROVIDERS: PCP Internal Medicine; Visit Provider Physician Assistant Medical
DX: J02.9 Acute pharyngitis, unspecified (principal); J98.8 Other specified respiratory disorders; Z13.9 Encounter for screening, unspecified

== ENCOUNTER 2025-03-18 10:13 | Outpatient (REF) | payer BC, SELFPAY ==
[2025-03-18 15:37] LABS: Chlamydia pneumoniae PCR Not Detected (Not Detect.); Coronavirus 229E PCR Not Detected (Not Detect.); Coronavirus HKU1 PCR Not Detected (Not Detect.); Coronavirus NL63 PCR Not Detected (Not Detect.); Coronavirus OC43 PCR Not Detected (Not Detect.); RSV PCR Not Detected (Not Detect.); Rhino/Enterovirus PCR Detected (Not Detect.)
[2025-03-18 16:02] LABS: Influenza A H1 PCR Not Detected (Not Detect.); Influenza A H1-2009 PCR Not Detected (Not Detect.); Influenza A H3 PCR Not Detected (Not Detect.); SARS-CoV-2 PCR Not Detected (Not Detect.)
== END 2025-03-18 10:14 | disposition home or self-care (01) ==
LOC: HO.LNP 10:13
PROVIDERS: PCP Internal Medicine; Visit Provider Physician Assistant Medical
DX: J02.9 Acute pharyngitis, unspecified (principal); J98.8 Other specified respiratory disorders; F17.210 Nicotine dependence, cigarettes, uncomplicated; H92.01 Otalgia, right ear; R09.81 Nasal congestion
CPT/HCPCS: 87633; 87880

== ENCOUNTER 2025-04-15 10:59 | Outpatient (AMB) | payer BC, SELFPAY ==
[2025-04-15 11:21] VITALS: BP 118/86; PULSE 102; TEMP 36.3; O2SAT 97; BMI 36.4
--- NOTE | 2025-04-15 11:21 | MHC.PC.OV ---
Vital Signs 04/15/25 11:21 Height 5 ft 2 in Weight 199 lb 4 oz BMI 36.4 BP 118/86 Blood Pressure Location Lt brachial Position Sitting Pulse 102 H Pulse Source Pulse Oximeter Temp 97.3 F Temp Source Temporal Artery Scan Pulse Oximetry (%) 97 Oxygen Delivery Method Room Air Intake Visit Reasons: Med review Product Info Specialist Required: No Accompanied by: Self / Same As Patient Allergies apple (Apple) Allergy (Severe, Verified 04/15/25 11:45) ANGIOEDEMA nut - unspecified (nut) Allergy (Severe, Verified 04/15/25 11:45) SWELLING pollen extracts (POLLEN) Allergy (Intermediate, Verified 04/15/25 11:45) ITCHY EYES, SNEEZING sertraline Allergy (Intermediate, Verified 04/15/25 11:45) anxiety suvorexant (Belsomra) Allergy (Intermediate, Verified 04/15/25 11:45) hallucinations semaglutide (From [employer]) Adverse Reaction (Intermediate, Verified 04/15/25 11:45) Migraine Medication List - Last Reconciled 04/15/25 by Rocio Barrios MD amitriptyline 30 mg (3 x 10 mg) PO DAILY 30 days atorvastatin 10 mg PO BEDTIME 90 days xvgzuwhwfl-mrdlnyitgumoe-xasm 50-300-40 mg 1 cap PO Q8H PRN 30 days cetirizine-pseudoephedrine 5-120 mg ER 1 tab PO BID 7 days cholecalciferol (vitamin D3) 25 mcg PO DAILY 90 days clonazepam 1 mg PO BID PRN 30 days fentanyl 25 mcg/hr 1 patch transdermal Q48H 30 days fluticasone propionate 50 mcg/actuation 1 spray intranasal Q12H lidocaine 5% 1 patch topical DAILY naloxone 4 mg/actuation (Narcan) 4 mg intranasal Q2M PRN 30 days omeprazole 20 mg PO DAILY 90 days oxycodone-acetaminophen 5-325 mg 1 tab PO QID PRN 30 days pregabalin 150 mg PO DAILY 30 days ropinirole 0.5 mg PO BEDTIME 90 days tirzepatide (weight loss) (Zepbound) 2.5 mg (0.5 mL) subcut QWEEK 4 weeks topiramate 50 mg PO DAILY 90 days Tobacco use date assessed: 04/15/25 Dental Screening Dental Screen Date: 04/15/25 Did you have a dental visit in the last 12 months?: Yes Did you have a dental problem in the last 6 months where you did not have access to dental care?: No Was dental information given to patient?: Patient has dentist HPI HPI Comments History of Present Illness Details The patient is a 50-year-old female presenting to discuss medication management, particularly prior authorization issues. She has experienced recent difficulties obtaining refills for her Percocet, which now requires prior authorization that it previously did not, an issue that has been persistent for nearly three weeks. The patient has a history of chronic low back pain, fibromyalgia, polyarticular arthritis, scoliosis of the thoracolumbar spine, and osteoarthritis of the lumbar spine. She was evaluated by a specialist in [place] for her scoliosis, who recommended against surgery at this time, advising her to continue managing her symptoms with medication and to return if her condition worsens. Her current medications for pain include fentanyl 25 mcg nasal spray, Percocet as needed, and pregabalin 150 mg once daily. Other medications include amitriptyline, atorvastatin 10 mg, butalbital, cetirizine, vitamin D, clonazepam, omeprazole, ropinirole, and topiramate 50 mg. She reports a history of allergies to apples, nuts, pollen, sertraline, Belsomra, and Wegovy. She quit smoking on March 07, about a month and a half ago. Her last cholesterol level was slightly elevated. Recently, the patient visited an urgent care facility with suspicion of COVID-19, but the test was negative. She was diagnosed with a possible respiratory infection and prescribed antibiotics. During that visit, she was told her pulse was high. 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 Polyarticular arthritis Scoliosis of thoracolumbar spine Tachycardia Mixed hyperlipidemia Bilateral sacroiliitis Transaminitis Palpitations Hypovitaminosis D Obesity Migraines Fibromyalgia Dizziness Surgical History History of deviated nasal septum History of removal of ovarian cyst History of hysterectomy History of cholecystectomy History of tubal ligation History of tonsillectomy Family History Father Anxiety Depression Mother Breast cancer Maternal Grandmother Myocardial infarction Maternal Aunt Breast cancer Family/Other FH: mental illness Social History Housing: House Alcohol intake: never Patient Tobacco Use Status: Current everyday Tobacco user Tobacco use type: Cigarette Cigarettes Per Day: 6 Years Smoked: 20 +/- e-Cigarette/Vaping Use: Never Used Second Hand Smoke Exposure: No (quit smoking a month ago.) service: No Current occupational status: employed 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 1. Little interest or pleasure in doing things: several days 2. Feeling down, depressed, or hopeless: several days 3. Trouble falling or staying asleep, or sleeping too much: not at all 4. Feeling tired or having little energy: several days 5. Poor appetite or overeating: not at all 6. Feeling bad about yourself - or that you are a failure or have let yourself or your family down: not at all 7. Trouble concentrating on things, such as reading the newspaper or watching television: not at all 8. Moving or speaking so slowly that other people could have noticed. Or the opposite - being so fidgety or restless that you have been moving around a lot more than usual: not at all 9. Thoughts that you would be better off or of hurting yourself in some way: not at all Total score: 3 Depression Screening Interpretation: Positive Depression Screening Follow-up: Existing condition, In treatment and Follow-up Visit Requested Depression Screening Done: Yes 28291 - PHQ-9 Billing: Yes Source: Developed by Drs. Tim Reynolds, Gloria Rider, Akbar Lagos and colleagues, with an educational hiram from [employer]. Thrive Questionnaire Date Thrive assessed: 04/15/25 I am a: Patient What is your living situation today?: I have a steady place to live Within the past 12 months, did the food you bought not last and you didn't have the money to get more?: Never true Within the past 12 months, did you worry whether your food would run out before you got money to buy more?: Never true Do you have trouble paying for medicines?: No Do you have trouble getting transportation to medical appointments?: No Do you have trouble paying your heating and electricity bill?: No Do you have trouble taking care of your child, family member or friend?: No Do you have trouble with day-to-day activities such as bathing, preparing meals, shopping, managing finances, etc.?: No Are you currently unemployed and looking for a job?: No Are you interested in more education?: No Please select the resources that you would like help with: None THRIVE Score: 0 AUDIT C Alcohol Use Questionnaire (AUDIT-C) 1. How often do you have a drink containing alcohol?: Never Total Score: 0 Score Reviewed/Action Taken: No JENNIFER-7 AMB Questionnaire JENNIFER-7 Date JENNIFER - 7 assessed: 04/15/25 Feeling nervous, anxious, or on edge: 2 = More than half the days Not being able to stop or control worryin = Several days Worrying too much about different things: 2 = More than half the days Trouble relaxin = Nearly every day Being so restless that it is hard to sit still: 1 = Several days Becoming easily annoyed or irritable: 2 = More than half the days Feeling afraid as if something awful might happen: 1 = Several days Total JENNIFER-7 score (0-4 normal; 5-9 mild; 10-14 moderate; 15-21 severe): 12 Source: Developed by Drs. Tim Reynolds, Gloria Rider, Akbar Lagos and colleagues, with an educational hiram from [employer]. JENNIFER-7 Assessment Billing JENNIFER-7 Assessment Tool: JENNIFER-7 Assessment 52441 Review of Systems Const All systems reviewed & are unremarkable except as noted in HPI and below Card Denies chest pain at rest, Denies chest pain with activity, Denies edema, Denies irregular heart rhythm, Denies claudication, Denies dyspnea, Denies dyspnea on exertion, Denies orthopnea, Denies paroxysmal nocturnal dyspnea and Denies slow heart rate Resp Denies cough, Denies dyspnea and Denies dyspnea on exertion GI Denies abdominal pain, Denies change in bowel habits, Denies excessive flatus, Denies nausea and Denies vomiting Physical exam (Primary Care) Vital Signs: Last Vital Signs Temp 97.3 F 04/15/25 11:21 Pulse 102 H 04/15/25 11:21 BP 118/86 04/15/25 11:21 Pulse Ox 97 04/15/25 11:21 Oxygen Delivery Method Room Air 04/15/25 11:21 BMI result Body Mass Index 36.4 BMI Assessment/Plan discussion: High BMI High, discussed plan: lifestyle, weight reduction, dietary and physical activity Tobacco/Smoking Status: Tobacco use Status Tobacco use date assessed 04/15/25 04/15/25 11:29 Patient Tobacco Use Status Current everyday Tobacco 04/15/25 11:22 Tobacco use type Cigarette 04/15/25 11:22 e-Cigarette/Vaping Use Never Used 04/15/25 11:22 PHQ-9: PHQ-9 Score PHQ-9: Total score 3 04/15/25 11:29 Depression Screening Interpretation: Positive Depression Screening Follow-up: Existing condition, In treatment and Follow-up Visit Requested Thrive Assessment: Date of Thrive Assessment Date Thrive assessed 04/15/25 04/15/25 11:29 Resp Effort & Inspection: normal respiratory effort Auscultation: clear to auscultation bilaterally Cardio Jugular venous distension: no JVD Rate: regular rate Rhythm: regular rhythm Heart sounds: S1 normal heart sound present and S2 normal heart sound present Extrem General: Yes full ROM Coding Level of Care Code Est Pt Level 4 (06403) Complex EM visit Add On G2211 Diagnoses Mixed hyperlipidemia E78.2 Fibromyalgia M79.7 Chronic lower back pain M54.50; G89.29 Osteoarthritis of lumbar spine with myelopathy M47.16 Spinal osteoarthritis complication: with myelopathy Scoliosis of thoracolumbar spine M41.9 Mild major depression F32.0 Additional Codes PHQ-9 - 08341 - PHQ-9 Billing: Yes ([id number]) JENNIFER-7 Assessment Billing - JENNIFER-7 Assessment Tool: JENNIEFR-7 Assessment 44645 ([id number]) Time Spent (min) 24 Assessment & Plan Assessment & Plan (1) Mixed hyperlipidemia: Code(s): E78.2 - Mixed hyperlipidemia Category: Medical (2) Fibromyalgia: Code(s): M79.7 - Fibromyalgia Category: Medical (3) Chronic lower back pain: Code(s): M54.50 - Low back pain, unspecified; G89.29 - Other chronic pain Category: Medical (4) Osteoarthritis of lumbar spine: Code(s): M47.816 - Spondylosis without myelopathy or radiculopathy, lumbar region Category: Medical Qualifiers: Spinal osteoarthritis complication: with myelopathy Qualified Code(s): M47.16 - Other spondylosis with myelopathy, lumbar region (5) Scoliosis of thoracolumbar spine: Code(s): M41.9 - Scoliosis, unspecified Category: Medical (6) Mild major depression: Code(s): F32.0 - Major depressive disorder, single episode, mild Category: Medical Plan Plan 1. Chronic Pain The patient's chronic pain is secondary to thoracolumbar scoliosis and osteoarthritis of the lumbar spine. To address prior authorization denials for her pain medications, the diagnoses of scoliosis and osteoarthritis of the lumbar spine will be associated with the prescriptions for fentanyl, oxycodone/acetaminophen, and pregabalin. Continue current pain management regimen. A prescription for Narcan (naloxone) will be sent for safety, as its absence may also contribute to insurance denials for opioids. 2. Hypercholesterolemia The patient's cholesterol was previously elevated. Blood work will be deferred for approximately six months. Continue atorvastatin 10 mg. 3. Fibromyalgia Continue pregabalin and other pain medications as needed. 4. Mild major depression Continue same medications. Orders: Orders Vitamin D 25-OH Total 6 Months E55.9 - Vitamin D deficiency, unspecified Vitamin B12 and Folate 6 Months E53.8 - Deficiency of other specified B group vitamins Lipid Panel 6 Months E78.5 - Hyperlipidemia, unspecified Comprehensive [place]. Panel Fast 6 Months E78.2 - Mixed hyperlipidemia Medications: New epinephrine (EpiPen 2-Richard) for 2 doses 0.3 mg (0.3 mL) IM Q10M PRN 2 ea 1RF anaphylaxis 30 days Refilled fentanyl 25 mcg/hr 1 patch transdermal Q48H 15 ea 0RF 30 days G89.29 - Other chronic pain, M13.0 - Polyarthritis, unspecified, M41.9 - Scoliosis, unspecified, M47.16 - Other spondylosis with myelopathy, lumbar region, M54.50 - Low back pain, unspecified oxycodone-acetaminophen 5-325 mg 1 tab PO QID PRN 120 tabs 0RF pain 30 days G89.29 - Other chronic pain, M13.0 - Polyarthritis, unspecified, M54.50 - Low back pain, unspecified tirzepatide (weight loss) (Zepbound) for 4 weeks 2.5 mg (0.5 mL) subcut QWEEK 2 mL 0RF 4 weeks E66.811 - Obesity, class 1 naloxone 4 mg/actuation (Narcan) spray 1 dose into ONE nostril; alternate nostrils w each dose until help arrives 4 mg intranasal Q2M PRN 2 ea 1RF opioid overdose 30 days
--- OUTSIDE RECORDS SUMMARY | 2025-04-15 13:49 | XMS_ITS | Clinical Summary ---
Author Organization [facility] Address [address] [address] Phone Care Team Providers Care Guillotine Trimmer Name Role Phone Rocio Alvarado MD Primary [...] - 2024-2 6 season) 2025 10/08/2020, 09/15/2020 RSV VACCINE (1 - 1-dose 75+ series) 2049 HEPATITIS A VACCINES Aged Out No long [...] Insurance PPO EPO PPO EPO [place] [address] [place] [address] [place] [address] [place] [address] PPO EPO PPO EPO PPO EPO PPO EPO [employer] PPO EPO Care Teams Guillotine Trimmer Relationship Specialty Start Date End Date Rocio Alvarado MD [address] [place] [id number] PCP - General Internal Medicine 10/12/21 Additional Source Comments The information contained in this document represents components of the legal health record. It is not the complete legal health record.[facility]
== END 2025-04-15 12:07 | disposition home or self-care (01) ==
LOC: HO.HMCH 11:00
PROVIDERS: PCP Internal Medicine; Visit Provider Internal Medicine
DX: E78.2 Mixed hyperlipidemia (principal); M79.7 Fibromyalgia; M54.50 Low back pain, unspecified; G89.29 Other chronic pain; M47.16 Other spondylosis with myelopathy, lumbar region; M41.9 Scoliosis, unspecified; F32.0 Major depressive disorder, single episode, mild

== ENCOUNTER → 2025-04-15 10:59 | Outpatient (BNVA) | payer BC, SELFPAY | PROVIDERS: PCP Internal Medicine; Visit Provider Internal Medicine | DX: E78.2 Mixed hyperlipidemia (principal); M54.50 Low back pain, unspecified; M79.7 Fibromyalgia; G89.29 Other chronic pain; M47.16 Other spondylosis with myelopathy, lumbar region; M41.9 Scoliosis, unspecified; F32.0 Major depressive disorder, single episode, mild; M13.0 Polyarthritis, unspecified | CPT/HCPCS: 96127 ==